=== PATIENT | male | born 1955 | race Caucasian/White ===

== ENCOUNTER 2016-09-12 15:58 | Emergency (ER) | payer OTHER ==
[~2016-09-12] VITALS: Ht 160 cm; Wt 70.9 kg
[~2016-09-12 15:58] MED LIST: LISI30TA4 PO; PROZ40CA PO; TAMS5CAP PO; WELLTAB39 PO
[2016-09-12 15:59] VITALS: BP 121/79; PULSE 89; RESP 14; TEMP 98.1; O2SAT 96
[2016-09-12 16:51] LABS: BACTERIA, URINE FEW /hpf; BLOOD, URINE LARGE (NEG); COMMENT (UR) CULTURE INDICATED; CULTURE IF INDICATED CULTURE INDICATED; GLUCOSE,URINE NEG (NEG); KETONE, URINE NEG (NEG); NITRITE,URINE POS (NEG); PH, URINE 6.5 (5.0-8.5); URINE COLOR YELLOW (YELLW/STRAW)
--- NOTE | 2016-09-12 18:59 | PD ---
HPI Chief Complaint: Complaint Time Seen by Provider: 18:50 Travel History International Travel<30 days: No Contact w/Intl Traveler<30days: No Traveled to known affect area: No History of Present Illness HPI Patient is a 61-year-old male who presents emergency department for evaluation of dysuria, frequency, back pain. Patient also complains of a cough and "lung pain". Patient reports a 50 pound weight loss over the last 8 months. Patient states that he had urinary stent placement with Dr. Hernandez, urologist several months ago and they have not been removed. Patient has not followed up with Dr. Hernandez, due to being incarcerated recently for 40 days. Patient states he' s been homeless for the last 2 weeks. He denies any appetite changes, he states he eats 3 meals a day at the [employer] PFSH Past Medical History Hx Anticoagulant Therapy: No Arthritis: Yes (DJD) Asthma: Yes Anxiety: No Depression: Yes Heart Rhythm Problems: No Cancer: No Cardiac Catheterization: No Cardiovascular Problems: Yes (LA/HTN) High Cholesterol: No Chemotherapy: No Chest Pain: No Congestive Heart Failure: No Cerebrovascular Accident: No Diabetes: No Diminished Hearing: No Endocrine: No Gastrointestinal Disorders: No Genitourinary: Yes (STONES) Headaches: Yes Hepatitis: Yes Hiatal Hernia: No Hypertension: Yes Immune Disorder: No Inguinal Hernia: Yes (REPAIRED RIGHT GROIN) Implanted Vascular Access Dvce: No Kidney Stones: Yes Musculoskeletal: Yes (CHRONIC BACK AND NECK PAIN) Neurologic: No Psychiatric: Yes Reproductive: No Respiratory: Yes (ASTHMA) Immunizations Current: Yes Migraines: Yes Renal Failure: No Thyroid Disease: No Past Surgical History Abdominal Surgery: Yes (HERNIA RIGHT GROIN REPAIRED, REPAIRED CHILD) AICD: No Body Medical Devices: LEFT ANKLE PINS Cardiac Surgery: No Coronary Artery Bypass Graft: No Ear Surgery: No Endocrine Surgery: No Eye Surgery: Yes (cyst on eye) Genitourinary Surgery: Yes (lithotripsy) Gynecologic Surgery: No Hysterectomy: No Joint Replacement: No Neurologic Surgery: No Oral Surgery: No Pacemaker: No Thoracic Surgery: No Other Surgery: Yes (THUMB SURGERY FROM LACERATION) Social History Alcohol Use: No (QUIT 2010) Tobacco Use: No (QUIT 2009) 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) Allergies-Medications (Allergen,Severity, Reaction): Coded Allergies: [place]oy (Verified Allergy, Severe, THROAT SWELLS, 09/12/16) Cultivated Oat Pollen (Verified Allergy, Severe, ASTHMA, 09/12/16) Dust (Verified Allergy, Severe, ASTHMA, 09/12/16) Nut Tree (Verified Allergy, Severe, THROAT SWELLS, 09/12/16) Reported Meds & Prescriptions Reported Meds & Active Scripts Active Pyridium (Phenazopyridine HCl) 200 Mg Tab 200 Mg PO Q8H PRN Bactrim DS (Sulfamethoxazole-Trimethoprim) 800-160 Mg Tab 1 Tab PO BID Lisinopril 30 Mg Tab 30 Mg PO DAILY Flomax (Tamsulosin HCl) 0.4 Mg Cap 0.4 Mg PO HS Reported Wellbutrin Xl 24 HR (Bupropion HCl) 300 Mg Tab 300 Mg PO DAILY Prozac (Fluoxetine HCl) 40 Mg Cap 40 Cap PO DAILY Review of Systems Except as stated in HPI: all other systems reviewed are Neg General / Constitutional: Positive: Weight Loss (50 pounds over the last 8 months) HENT: No: Headaches Cardiovascular: No: Chest Pain or Discomfort Respiratory: Positive: Cough, Pleuritic Pain Gastrointestinal: No: Nausea, Vomiting, Diarrhea, Abdominal Pain Genitourinary: Positive: Dysuria, Hematuria Musculoskeletal: Positive: Myalgias Physical Exam Narrative GENERAL: Well-developed, well-nourished, alert male. Resting comfortably in no acute distress. SKIN: Warm and dry. HEAD: Atraumatic. Normocephalic. EYES: Pupils equal and round. No scleral icterus. No injection or drainage. ENT: No nasal bleeding or discharge. Mucous membranes pink and moist. NECK: Trachea midline. No JVD. CARDIOVASCULAR: Regular rate and rhythm. No murmur appreciated. RESPIRATORY: No accessory muscle use. Clear to auscultation. Breath sounds equal bilaterally. GASTROINTESTINAL: Abdomen soft, non-tender, nondistended. Hepatic and splenic margins not palpable. MUSCULOSKELETAL: No obvious deformities. No clubbing. No cyanosis. No edema. Positive CVAT bilaterally. NEUROLOGICAL: Awake and alert. No obvious cranial nerve deficits. Motor grossly within normal limits. Normal speech. PSYCHIATRIC: Appropriate mood and affect; insight and judgment normal. Data Data Last Documented VS Vital Signs Date Time Temp Pulse Resp B/P Pulse Ox O2 Delivery O2 Flow Rate FiO2 09/12/16 23:04 82 15 128/80 96 09/12/16 15:59 98.1 Room Air Orders Urinalysis - C+S If Indicated (09/12/16 16:07) Urine Culture (09/12/16 16:12) Chest, Pa & Lat (09/12/16 ) Ct Abd/Pel W/O Iv Contrast (09/12/16 18:49) Sodium Chloride 0.9% Flush (Ns Flush) (09/12/16 19:00) Complete Blood Count With Diff (09/12/16 19:46) Basic Metabolic Panel (Bmp) (09/12/16 19:46) Ibuprofen (Motrin) (09/12/16 22:45) Phenazopyridine (Pyridium) (09/12/16 22:45) Sulfamet-Trimeth Ds 800-160 Mg (Bactrim (09/12/16 22:45) Mandatory Outpatient Referral (09/12/16 22:35) Labs Laboratory Tests Test 09/12/16 09/12/16 09/12/16 16:12 21:15 22:17 Urine Color YELLOW Urine Turbidity CLOUDY Urine pH 6.5 Urine Specific [place] 1.016 Urine Protein 30 mg/dL Urine Glucose (UA) NEG mg/dL Urine Ketones NEG mg/dL Urine Occult Blood LARGE Urine Nitrite POS Urine Bilirubin NEG Urine Urobilinogen 2.0 MG/DL Urine Leukocyte Esterase LARGE Urine RBC /hpf Urine WBC /hpf Urine Bacteria FEW /hpf Microscopic Urinalysis Comment CULTURE INDICATED Sodium Level 140 MEQ/L Potassium Level 3.7 MEQ/L Chloride Level 107 MEQ/L Carbon Dioxide Level 27.6 MEQ/L Anion Gap 5 MEQ/L Blood Urea Nitrogen 10 MG/DL Creatinine 1.37 MG/DL Estimat Glomerular Filtration 53 ML/MIN Rate Random Glucose 94 MG/DL Calcium Level 9.7 MG/DL White Blood Count 5.6 TH/MM3 Red Blood Count 4.79 MIL/MM3 Hemoglobin 13.4 GM/DL Hematocrit 40.6 % Mean Corpuscular Volume 84.7 FL Mean Corpuscular Hemoglobin 28.0 PG Mean Corpuscular Hemoglobin 33.0 % Concent Red Cell Distribution Width 14.7 % Platelet Count 156 TH/MM3 Mean Platelet Volume 7.9 FL Neutrophils (%) (Auto) 66.8 % Lymphocytes (%) (Auto) 15.7 % Monocytes (%) (Auto) 10.1 % Eosinophils (%) (Auto) 6.6 % Basophils (%) (Auto) 0.8 % Neutrophils # (Auto) 3.8 TH/MM3 Lymphocytes # (Auto) 0.9 TH/MM3 Monocytes # (Auto) 0.6 TH/MM3 Eosinophils # (Auto) 0.4 TH/MM3 Basophils # (Auto) 0.0 TH/MM3 CBC Comment DIFF FINAL Differential Comment MDM Medical Decision Making Medical Screen Exam Complete: Yes Emergency Medical Condition: Yes Medical Record Reviewed: Yes Interpretation(s) Vital Signs Date Time Temp Pulse Resp B/P Pulse Ox O2 Delivery O2 Flow Rate FiO2 09/12/16 15:59 98.1 89 14 121/79 96 Room Air Differential Diagnosis Bronchitis versus asthma exacerbation versus pyelonephritis versus urinary tract infection versus malignancy versus other Narrative Course Patient is a 61-year-old male presenting to the emergency department for evaluation of back pain, cough, urinary complaints. Patient's vital signs are stable, he is afebrile. Patient has moderate CVAT bilaterally, urinalysis shows nitrite positive urinary tract infection. Patient has reported a 50 pound weight loss over the last 8 months, chest x-ray ordered and pending. CT of the abdomen ordered and pending to rule out obstructing calculi. Chest x-ray shows no acute disease. Care of patient will be transferred to provider in the medical pod when bed is available. Scripts Phenazopyridine (Pyridium)200 Mg [id number] Mg PO Q8H PRN (DYSURIA) #3 TAB Ref 0 Prov:Tayler Perez MD 09/12/16 Sulfamethoxazole-Trimethoprim (Bactrim DS)800-160 Mg Tab1 Tab PO BID #6 TAB Ref 0 Prov:Tayler Perez MD 09/12/16 Afshan Ziegler Sep 12, 2016 18:59
[2016-09-12] MEDS ORDERED: SODIUM CHLORIDE 0.9% FLUSH 5 ML FLUSH IVF PRN (19:00)
--- NOTE | 2016-09-12 19:19 | RADRPT ---
EXAM DATE/TIME: 09/12/2016 19:10 [facility] COMPARISON: No previous studies available for comparison. INDICATIONS : Cough. MEDICAL HISTORY : Cardiomegally. SURGICAL HISTORY : Renal stents. ENCOUNTER: Initial ACUITY: 2 weeks PAIN SCORE: 0/10 LOCATION: Bilateral chest FINDINGS: PA and lateral views of the chest demonstrate the lungs to be symmetrically aerated without evidence of mass, infiltrate or effusion. The cardiomediastinal contours are unremarkable. Degenerative mahmood e is seen in the thoracic spine. There appears to be a stent in the posterior upper abdomen.. CONCLUSION: No acute disease. Dino Fong MD on September 12, 2016 at 19:17 Board Certified Radiologist. This report was verified electronically.
--- NOTE | 2016-09-12 19:43 | RADRPT ---
EXAM DATE/TIME: 09/12/2016 19:07 [facility] COMPARISON: CT ABDOMEN & PELVIS W/O CONTRAST, December 17, 2015, 11:37. CT ABDOMEN & PELVIS W /O CONTRAST, March 26, 2016, 12:11. INDICATIONS : Bilateral flank pain with burning urination past 5 days. ORAL CONTRAST: No oral contrast ingested. RADIATION DOSE: 7.04 CTDIvol (mGy) MEDICAL HISTORY : Cardiovascular disease. Hypertension. Hernia, inguinal. Renal stones SURGICAL HISTORY : Renal stents ENCOUNTER: Initial ACUITY: 4 - 6 days PAIN SCALE: 5/10 LOCATION: Bilateral flank TECHNIQUE: Volumetric scanning of the abdomen and pelvis was performed. Using automated exposure control and adjustment of the mA and/or kV according to patient size, radiation dose was kept as low as reasonably achievable to obtain optimal diagnostic quality images. FINDINGS: There are ureteral stents seen bilaterally. There are several small nonobstructing rig ht renal stones seen measuring up to 6 mm. There is a possible tiny 2 mm calcification seen at the i nferior left collecting system. No hydronephrosis is seen. There is a 2.8 x 1.6 x 1.9 cm low densit y mass seen off the posterior inferior aspect of the left kidney. This was not present previously. The liver appears normal. There is a 1.6 cm gallstone seen in the gallbladder. There is a calcified granuloma seen in the spleen. The pancreas and adrenals glands are normal. There are mildly promine nt lymph nodes seen in the celiac region. These were present previously. These measure up to 1.6 cm. There are retroperitoneal prominent lymph nodes in the pericaval and periaortic regions. These wer e present previously and are unchanged. The bowel is grossly normal. The pelvic structures appear g rossly intact. There is degenerative change in the spine. CONCLUSION: 1. Bilateral ureteral stents in place. There are small calcifications seen in the kidneys bilaterall y being more numerous on the right. 2. 2.8 cm low density mass seen in the posterior inferior left kidney. This was not present previous ly. It could represent a cyst. A low density solid mass cannot be excluded. It is nonspecific on this noncontrast CT examination. 3. Gallstone. 4. Persistent adenopathy seen in the celiac and retroperitoneal region. The adenopathy appears uncha nged. Dino Fong MD on September 12, 2016 at 19:25 Board Certified Radiologist. This report was verified electronically.
--- NOTE | 2016-09-12 21:45 | PD ---
Physical Exam Date Seen by Provider: Sep 12, 2016 Time Seen by Provider: 21:45 Narrative 61-year-old male with PMH of asthma, hypertension, kidney stones presents to the ED for evaluation of 3 day history of increased urinary urgency, dysuria, hematuria, back pain. Also complains of chronic, nonproductive cough, worsened over the last 3 days. He denies fever, chills, nausea, vomiting, chest pain, shortness breath, palpitations, penile discharge. States that he had ureteral stents placed but was unable to have them removed secondary to incarceration. Patient states he is currently homeless. GENERAL: Well-nourished, well-developed white male in no acute distress. SKIN: Warm and dry. HEAD: Normocephalic. EYES: No scleral icterus. No injection or drainage. NECK: Supple, trachea midline. No JVD or lymphadenopathy. CARDIOVASCULAR: Regular rate and rhythm without murmurs, gallops, or rubs. RESPIRATORY: Breath sounds clear and equal bilaterally. No accessory muscle use. GASTROINTESTINAL: Abdomen soft, non-tender, nondistended. Active bowel sounds. Mild pubic tenderness. MUSCULOSKELETAL: No cyanosis, or edema. BACK: Nontender without obvious deformity. Positive bilateral CVA tenderness. Data Data Last Documented VS Vital Signs Date Time Temp Pulse Resp B/P Pulse Ox O2 Delivery O2 Flow Rate FiO2 09/12/16 23:04 82 15 128/80 96 09/12/16 15:59 98.1 Room Air Orders Urinalysis - C+S If Indicated (09/12/16 16:07) Urine Culture (09/12/16 16:12) Chest, Pa & Lat (09/12/16 ) Ct Abd/Pel W/O Iv Contrast (09/12/16 18:49) Sodium Chloride 0.9% Flush (Ns Flush) (09/12/16 19:00) Complete Blood Count With Diff (09/12/16 19:46) Basic Metabolic Panel (Bmp) (09/12/16 19:46) Ibuprofen (Motrin) (09/12/16 22:45) Phenazopyridine (Pyridium) (09/12/16 22:45) Sulfamet-Trimeth Ds 800-160 Mg (Bactrim (09/12/16 22:45) Mandatory Outpatient Referral (09/12/16 22:35) Labs Laboratory Tests Test 09/12/16 09/12/16 09/12/16 16:12 21:15 22:17 Urine Color YELLOW Urine Turbidity CLOUDY Urine pH 6.5 Urine Specific [place] 1.016 Urine Protein 30 mg/dL Urine Glucose (UA) NEG mg/dL Urine Ketones NEG mg/dL Urine Occult Blood LARGE Urine Nitrite POS Urine Bilirubin NEG Urine Urobilinogen 2.0 MG/DL Urine Leukocyte Esterase LARGE Urine RBC /hpf Urine WBC /hpf Urine Bacteria FEW /hpf Microscopic Urinalysis Comment CULTURE INDICATED Sodium Level 140 MEQ/L Potassium Level 3.7 MEQ/L Chloride Level 107 MEQ/L Carbon Dioxide Level 27.6 MEQ/L Anion Gap 5 MEQ/L Blood Urea Nitrogen 10 MG/DL Creatinine 1.37 MG/DL Estimat Glomerular Filtration 53 ML/MIN Rate Random Glucose 94 MG/DL Calcium Level 9.7 MG/DL White Blood Count 5.6 TH/MM3 Red Blood Count 4.79 MIL/MM3 Hemoglobin 13.4 GM/DL Hematocrit 40.6 % Mean Corpuscular Volume 84.7 FL Mean Corpuscular Hemoglobin 28.0 PG Mean Corpuscular Hemoglobin 33.0 % Concent Red Cell Distribution Width 14.7 % Platelet Count 156 TH/MM3 Mean Platelet Volume 7.9 FL Neutrophils (%) (Auto) 66.8 % Lymphocytes (%) (Auto) 15.7 % Monocytes (%) (Auto) 10.1 % Eosinophils (%) (Auto) 6.6 % Basophils (%) (Auto) 0.8 % Neutrophils # (Auto) 3.8 TH/MM3 Lymphocytes # (Auto) 0.9 TH/MM3 Monocytes # (Auto) 0.6 TH/MM3 Eosinophils # (Auto) 0.4 TH/MM3 Basophils # (Auto) 0.0 TH/MM3 CBC Comment DIFF FINAL Differential Comment MDM Supervised Visit with YONI: No Differential Diagnosis Cystitis versus pyelonephritis versus hemorrhagic cystitis versus MORGAN versus anemia versus other Narrative Course 61-year-old male with PMH of asthma, HTN, kidney stones presents to ED for evaluation of 3 day history of increased urinary urgency, dysuria, hematuria, back pain. Also complains chronic, nonproductive cough, worse the last 3 days. Denies fever, chills, and in/V, chest pain, SOB, palpitations. States that he has ureteral stents in place, was unable to have them removed secondary to incarceration. Vitals reviewed. Physical exam reveals a nontoxic-appearing white male in no acute distress. Chest CTAB, abdomen soft, nontender, nondistended. Active bowel sounds. Mild suprapubic tenderness. Positive bilateral CVA tenderness. CBC: No anemia or leukocytosis. CMP: Creatinine 1.37, patient's baseline. UA: Cloudy, large occult blood, nitrate positive, large leukocyte esterase, innumerable wbc's, innumerable rbc's. Culture pending. Urine culture 03/05/16 grew staph or resistant only to Cipro. CXR: No acute disease. CT abdomen and pelvis: Stents in place. Possible left kidney mass. Retroperitoneal adenopathy, unchanged. Gallstone. I discussed the results of the workup with the patient. The patient is aware of the adenopathy. I provided a copy of the CT results regarding possible left kidney mass. Patient was prescribed Bactrim and Pyridium, first doses administered in the ED. A mandatory outpatient consult was placed to Dr. Hernandez for evaluation of stents. Patient is instructed to take all the medication as prescribed, even if symptoms resolve, follow up with Dr. Hernandez as discussed. He indicated understanding of the instructions and is amenable to the plan of care. He is stable and discharged home. Diagnosis Primary Impression: Pyelonephritis Referrals: Ken Hernandez DO Patient Instructions: General Instructions, Urinary Tract Infection in Men (ED) Additional Instruction: Rest, hydrate. Take all medication as prescribed, even if your symptoms resolved. A mandatory outpatient consult has been placed with Dr. Hernandez for urologic follow-up. You may call the hospital in 2-3 days for further instructions. If you have a valid contact number, the hospital call you with further instructions. Return to the ED for any urgent or emergent medical condition. Scripts Phenazopyridine (Pyridium)200 Mg [id number] Mg PO Q8H PRN (DYSURIA) #3 TAB Ref 0 Prov:Tayler Perez MD 09/12/16 Sulfamethoxazole-Trimethoprim (Bactrim DS)800-160 Mg Tab1 Tab PO BID #6 TAB Ref 0 Prov:Tayler Perez MD 09/12/16 Disposition: 01 DISCHARGE HOME Condition: Stable Citlalli Douglas Sep 12, 2016 21:45
[2016-09-12 22:15] LABS: BICARBONATE 27.6 MEQ/L (21.0-32.0); POTASSIUM 3.7 MEQ/L (3.5-5.1)
[2016-09-12] MEDS ORDERED: BACT800T5 PO (22:39)
[2016-09-12] MEDS ORDERED: PYRI200T4 PO (22:39)
[2016-09-12 22:45] LABS: AUTOMATED NEUTROPHIL # 3.8 TH/MM3 (1.8-7.7); BASOPHIL % 0.8 % (0.0-2.0); EOSINOPHIL # 0.4 TH/MM3 (0-0.4); EOSINOPHIL % 6.6 % (0.0-4.0); HEMATOCRIT 40.6 % (39.0-51.0); HEMO FLAGS DIFF FINAL; LYMPH % 15.7 % (9.0-44.0); LYMPHOCYTE # 0.9 TH/MM3 (1.0-4.8); MEAN CELL VOLUME 84.7 FL (80.0-100.0); MONO % 10.1 % (0.0-8.0); NEUT % 66.8 % (16.0-70.0); PLATELET COUNT 156 TH/MM3 (150-450); RED BLOOD COUNT 4.79 MIL/MM3 (4.50-5.90); RED CELL DISTRIBUTION WIDTH 14.7 % (11.6-17.2); WHITE BLOOD COUNT 5.6 TH/MM3 (4.0-11.0)
[2016-09-12] MEDS ORDERED: PHENAZOPYRIDINE HCL 200 MG TAB PO ONE (22:45)
[2016-09-12] MEDS ORDERED: SULFAMETHOXAZOLE-TRIMETHOPRIM DS 800-160 MG TAB PO ONE (22:45)
[2016-09-12] MEDS ORDERED: IBUPROFEN 600 MG TAB PO ONE (22:45)
[2016-09-12 23:04] VITALS: BP 128/80
[2016-10-03] MEDS ORDERED: BACT800T5 PO (15:46)
[2016-10-03] MEDS ORDERED: PYRI200T4 PO (15:49)
[2016-10-05] MEDS ORDERED: SERO200T PO (13:02)
[2016-10-05] MEDS ORDERED: VENL75XR PO (13:02)
[2016-10-05] MEDS ORDERED: BACT800T5 PO (13:56)
== END 2016-09-12 23:08 | disposition home or self-care (01) ==
LOC: NEPC 15:58
DX: N12 Tubulo-interstitial nephritis, not specified as acute or chronic (principal); N39.0 Urinary tract infection, site not specified; J45.909 Unspecified asthma, uncomplicated; I10 Essential (primary) hypertension; I25.2 Old myocardial infarction; R31.9 Hematuria, unspecified; B95.61 Methicillin susceptible Staphylococcus aureus infection as the cause of diseases classified elsewhere
CPT/HCPCS: 71020; 74176; 80048; 81001; 85025; 86403; 87077; 87086; 87186

== ENCOUNTER 2016-10-11 09:50 | Observation (INO) | payer OTHER ==
[~2016-10-11] VITALS: Ht 160 cm; Wt 75.2 kg
[~2016-10-11 09:50] MED LIST changes: +BACT800T5 PO; -PROZ40CA PO; +SERO200T PO; +VENL75XR PO; -WELLTAB39 PO
[2016-10-11] MEDS: SODIUM CHLORID 0.9% 500 ML IV SCH (10:30)
[2016-10-11] MEDS ORDERED: METOPROLOL TARTRATE 25 MG TAB PO PRN (10:30)
[2016-10-11] MEDS ORDERED: INSULIN HUMAN REGULAR 1,000 UNITS/10 ML VIAL SQ PRN (10:30)
[2016-10-11 10:52] VITALS: BP 126/81; PULSE 82; RESP 20; TEMP 97.9; O2SAT 97
[2016-10-11] MEDS: LACTATED RINGER'S 1000 ML IV SCH ×2 (11:15→21:23)
[2016-10-11 11:44] LABS: BASOPHIL % 0.8 % (0.0-2.0); EOSINOPHIL # 0.6 TH/MM3 (0-0.4); EOSINOPHIL % 12.8 % (0.0-4.0); HEMATOCRIT 39.6 % (39.0-51.0); LYMPH % 14.6 % (9.0-44.0); LYMPHOCYTE # 0.7 TH/MM3 (1.0-4.8); MEAN CELL VOLUME 87.8 FL (80.0-100.0); MEAN CORPUSCULAR HEMOGLOBIN 30.2 PG (27.0-34.0); MEAN CORPUSCULAR HGB CONC 34.3 % (32.0-36.0); MONO % 9.4 % (0.0-8.0); NEUT % 62.4 % (16.0-70.0); PLATELET COUNT 160 TH/MM3 (150-450); RED BLOOD COUNT 4.51 MIL/MM3 (4.50-5.90); RED CELL DISTRIBUTION WIDTH 16.1 % (11.6-17.2); WHITE BLOOD COUNT 4.8 TH/MM3 (4.0-11.0)
[2016-10-11 11:50] LABS: HEMO FLAGS AUTO DIFF
[2016-10-11] MEDS ORDERED: LACTATED RINGER'S 1000 ML INJ 1,000 ML IV ONE (12:00)
[2016-10-11] MEDS ORDERED: NEOSTIGMINE 3 MG/3 ML SYR IV ONE (12:00)
[2016-10-11] MEDS ORDERED: ePHEDrine/NS 25 MG/5 ML SYR IV ONE (12:00)
[2016-10-11] MEDS ORDERED: PROPOFOL 200 MG/20 ML AMP IV ONE (12:00)
[2016-10-11] MEDS ORDERED: PHENYLEPH/NS 1000 MCG/10 ML SYR IV ONE (12:00)
[2016-10-11] MEDS ORDERED: ONDANSETRON HCL 4 MG/2 ML VIAL IV PUSH ONE (12:00)
[2016-10-11] MEDS: AMPICILLIN 1 GM/NS 100 ML IV SCH ×4 (12:12→21:24)
[2016-10-11] MEDS: GENTAMICIN INJ 240 MG in SODIUM CHLORIDE 0.9% INJ 100 ML IV SCH ×2 (12:12→21:24)
[2016-10-11 12:31] LABS: PLATELET ESTIMATE SMEAR NORMAL (NORMAL); PLATELET MORPHOLOGY NORMAL (NORMAL); SCAN/DIFF AUTO DIFF CONFIRMED
[2016-10-11] MEDS ORDERED: FAMOTIDINE 20 MG/2 ML VIAL ONE (13:06)
[2016-10-11] MEDS ORDERED: MIDAZOLAM HCL 2 MG/2 ML VIAL ONE (13:06)
[2016-10-11] MEDS ORDERED: fentaNYL CITRATE 250 MCG/5 ML AMP ONE (13:06)
--- NOTE | 2016-10-11 15:21 | PD.OP ---
Operative Report Date of Surgery: Oct 11, 2016 Preoperative Diagnosis: right renal stones; retained ureteral stents Postoperative Diagnosis: same Procedure: Urethral dilatation, cystoscopy, left double-J stent removal, right ureteroscopy , laser lithotripsy with stone extraction, right double-J stent change Anesthesia: OLEG Surgeon: Ken Hernandez Gun Stock Checker(s): none Operation and Findings: Driss Esparza is a 61-year-old male presents with a history of bilateral renal calculi. He's undergone ESWL therapy in the past and recent CT scan demonstrate residual small right renal calculi with retained stents in place bilaterally. Decision was made to take the patient to the operating room to undergo cystoscopy left double-J stent removal with right ureteroscopy and laser lithotripsy with stone extraction and right double-J stent exchange. Benefits were discussed preoperatively and he was willing to proceed. Patient is brought to the operating room and identified by myself as Driss Esparza. He was prepped and draped in usual sterile fashion, received preprocedure antibiotics, general endotracheal tube anesthesia was administered and preprocedure antibiotics were administered. Urethral dilatation was performed starting with a 20 Nam[place]ian sound and going up to a 26 sound in order to be able to place the cystoscope through the urethra. 22 [place] scope was inserted in the bladder ceron cystoscopy did not reveal any abnormalities. The left ureter stent was identified and using the alligator grasper was removed without difficulty. The right ureteral stent was also identified and brought to the urethral meatus and a 0.35 sensor wire was passed up the right side with a good curl in the kidney and the stent was removed over the wire. A ureteral access sheath was then passed over the wire left in position. The wire was removed. A [employer] flexible ureteroscope was then passed through the ureteral access sheath and up into the lower pole right kidney. Stone fragments were visualized and using a 200 laser fiber at a setting of 8/800 the lower profile is within fragmented. A 3.0 nitinol basket was then used to retrieve the stone fragments. Once the right kidney was cleared; leaving only small fragments in place, a 0.35 sensor wire was then passed through the ureteral access sheath and ureteral access sheath was then removed. Cystoscope was back loaded over the wire and then at 22 cm 6 [place]ibian right double-J stent was placed. He was in good position at the end of the case and a 16 [place] Harrington was left indwelling. He was awoken and transferred to room stable condition. He will be admitted for observation and then discharged and follow-up in 2 weeks in the office undergo cystoscopy with stent removal. Ken Hernandez DO Oct 11, 2016 15:21
[2016-10-11] MEDS ORDERED: PILL SPLITTER OTHER PRN (15:45)
[2016-10-11] MEDS: BELLADONNA ALKALOIDS/OPIUM 60 MG SUPP RECTAL PRN ×2 (15:53→22:31)
[2016-10-11] MEDS: TAMSULOSIN HCL 0.4 MG CAP PO SCH (16:00)
[2016-10-11] MEDS: SODIUM CHLOR 0.45% 1000 ML INJ 1,000 ML IV SCH (16:00)
[2016-10-11] MEDS ORDERED: ACETAMINOPHEN 650 MG/20.3 ML UDC PO PRN (16:00)
[2016-10-11] MEDS: KETOROLAC TROMETHAMINE 30 MG/ML (IVP) VIAL IV PUSH PRN ×2 (16:10→22:31)
[2016-10-11 16:29] LABS: BICARBONATE 21.9 MEQ/L (21.0-32.0); POTASSIUM 4.4 MEQ/L (3.5-5.1)
[2016-10-11 19:07] VITALS: O2SAT 96
[2016-10-11 20:00] VITALS: BP 147/83; PULSE 100; RESP 20; TEMP 98.6; O2SAT 94
[2016-10-11] MEDS ORDERED: AMPICILLIN 250 MG VIAL IM SCH (20:00)
[2016-10-11] MEDS ORDERED: QUEtiapine FUMARATE 200 MG TAB PO SCH (21:00)
[2016-10-12] VITALS: BP 141/80; PULSE 90; RESP 20; TEMP 97.4; O2SAT 96
[2016-10-12] MEDS: AMPICILLIN 1 GM/NS 100 ML IV SCH ×4 (00:06→06:17)
[2016-10-12] MEDS: SODIUM CHLOR 0.45% 1000 ML INJ 1,000 ML IV SCH ×2 (00:06→08:53)
[2016-10-12] MEDS: SODIUM CHLORID 0.9% 500 ML IV SCH (00:48)
[2016-10-12 04:00] VITALS: BP 137/84; PULSE 88; RESP 20; TEMP 98.2; O2SAT 95
[2016-10-12] MEDS: KETOROLAC TROMETHAMINE 30 MG/ML (IVP) VIAL IV PUSH PRN (06:19)
[2016-10-12 08:00] VITALS: BP 153/86; PULSE 63; RESP 18; TEMP 96.4; O2SAT 97
[2016-10-12] MEDS: TAMSULOSIN HCL 0.4 MG CAP PO SCH (08:51)
[2016-10-12] MEDS ORDERED: LISINOPRIL 20 MG TAB PO SCH (09:00)
[2016-10-12] MEDS ORDERED: VENLAFAXINE HCL XR 75 MG CAP PO SCH (09:00)
--- NOTE | 2016-10-12 09:09 | HHI.PR ---
Subjective Remarks Pt feels well. Harrington out and voiding. Objective Vital Signs Vital Signs Date Time Temp Pulse Resp B/P Pulse Ox O2 Delivery O2 Flow Rate FiO2 10/12/16 04:00 98.2 88 20 137/84 95 10/12/16 00:00 97.4 90 20 141/80 96 10/11/16 23:31 18 10/11/16 20:00 98.6 100 20 147/83 94 10/11/16 19:07 96 21 10/11/16 16:30 98.1 65 13 140/75 98 Room Air 10/11/16 16:15 70 14 139/82 97 Room Air 10/11/16 16:00 75 13 131/77 95 Room Air 10/11/16 15:45 80 12 140/82 97 Room Air 10/11/16 15:30 90 19 129/74 97 Room Air 10/11/16 15:19 98.4 115 16 146/89 98 Room Air 10/11/16 10:52 97.9 82 20 126/81 97 I/O 10/11/16 10/11/16 10/11/16 10/12/16 10/12/16 10/12/16 07:00 15:00 23:00 07:00 15:00 23:00 Intake Total 2785 ml 720 ml Output Total 960 ml 1600 ml Balance 1825 ml -880 ml Intake Oral 290 ml 720 ml IV Total 795 ml Other 1700 ml Output Urine Total 950 ml 1600 ml Estimated Blood Loss 10 ml # Bowel Movements 0 0 Result Diagram: 10/11/16 1110 10/11/16 1602 Objective Remarks Abd:soft,nt,nd Assessment and Plan Assessment and Plan Stable s/p Right URS with laser litho and stone extraction D/C home Ken Hernandez DO Oct 12, 2016 09:09
--- NOTE | 2016-10-17 12:17 | MD ---
cc: ISABEL HERNANDEZ ADMISSION DATE: 10/11/2016 DISCHARGE DATE: 10/12/2016 BRIEF HISTORY AND HOSPITAL COURSE Mr. Sellers is a 61-year-old male who had bilateral ureteral and renal calculi. He underwent cystoscopy with right ureteroscopy, laser lithotripsy and stone extraction yesterday with a right double-J stent change. His left stent was removed. He had an uneventful hospital course and was discharged on postoperative day #1. His Harrington was removed and he voided without difficulty and was tolerating his regular diet. He will follow-up in the office in 2 weeks and at that time undergo cystoscopy with stent pull. Isabel Hernandez SWT/BT /9:13 AM /12:15 PM
== END 2016-10-12 11:11 | disposition home or self-care (01) ==
LOC: HSDC 09:50 → HSDI 15:15 → N07B 16:53
PROVIDERS: ADMIT Urology; ATTEND Urology
DX: N20.0 Calculus of kidney (principal); Z46.6 Encounter for fitting and adjustment of urinary device
CPT/HCPCS: 00918; 52356; 80048; 82370; 85025; 88300; C1769; C2617; G0378; J0290; J1580; J1885; J2250; J2370; J2405; J2710; J3010; J7120

== ENCOUNTER 2017-01-06 09:23 | Emergency (ER) | payer OTHER ==
[~2017-01-06] VITALS: Ht 160 cm; Wt 80.0 kg
[2017-01-06 09:25] VITALS: BP 116/73; PULSE 105; RESP 20; TEMP 97.6; O2SAT 98
--- NOTE | 2017-01-06 10:03 | PD ---
HPI Chief Complaint: Flank/Kidney Pain Time Seen by Provider: 09:56 Travel History International Travel<30 days: No Contact w/Intl Traveler<30days: No Traveled to known affect area: No History of Present Illness HPI This patient is worried about having urinary infection. 2 days ago his urine developed a followed her and he came discolored. He reports some dysuria. He denies fever or flank pain. Patient has a urinary stent. He was supposed to have it removed in October but he never went to his appointment with his urologist. Symptoms severity is moderate. No alleviating factors. He complains of dizziness and lightheadedness, worse when standing. PFSH Past Medical History Hx Anticoagulant Therapy: No Arthritis: Yes (DJD) Asthma: Yes Bipolar Disorder: Yes Anxiety: No Depression: Yes Heart Rhythm Problems: No Cancer: No Cardiac Catheterization: No Cardiovascular Problems: Yes (ENLARGED HEART) High Cholesterol: No Chemotherapy: No Chest Pain: No Congestive Heart Failure: No Cerebrovascular Accident: No Diabetes: No Diminished Hearing: No Endocrine: No Gastrointestinal Disorders: Yes (GALLSTONE ) Genitourinary: Yes (STONES) Headaches: Yes (related to htn) Hepatitis: Yes (HEP C) Hiatal Hernia: No Hypertension: Yes Immune Disorder: No Inguinal Hernia: Yes (REPAIRED RIGHT GROIN) Implanted Vascular Access Dvce: No Kidney Stones: Yes Musculoskeletal: Yes (CHRONIC BACK AND NECK PAIN) Neurologic: No Psychiatric: Yes Reproductive: No Respiratory: Yes (ASTHMA) Immunizations Current: Yes Migraines: Yes Renal Failure: No Thyroid Disease: No Tetanus Vaccination: < 5 Years Influenza Vaccination: No Past Surgical History Abdominal Surgery: Yes (HERNIA RIGHT GROIN REPAIRED, REPAIRED CHILD) AICD: No Body Medical Devices: LEFT ANKLE PINS Cardiac Surgery: No Coronary Artery Bypass Graft: No Ear Surgery: No Endocrine Surgery: No Eye Surgery: Yes (cyst on eye) Genitourinary Surgery: Yes (lithotripsy X2, R KIDNEY STENT) Gynecologic Surgery: No Hysterectomy: No Joint Replacement: No Neurologic Surgery: No Oral Surgery: No Pacemaker: No Thoracic Surgery: No Other Surgery: Yes (THUMB SURGERY FROM LACERATION) Social History Alcohol Use: No (QUIT 2011) Tobacco Use: No 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 - QUIT 2011) Allergies-Medications (Allergen,Severity, Reaction): Coded Allergies: Godoy (Verified Allergy, Severe, THROAT SWELLS, 01/06/17) Cultivated Oat Pollen (Verified Allergy, Severe, ASTHMA, 01/06/17) Dust (Verified Allergy, Severe, ASTHMA, 01/06/17) Nut Tree (Verified Allergy, Severe, THROAT SWELLS, 01/06/17) Reported Meds & Prescriptions Reported Meds & Active Scripts Active Cipro (Ciprofloxacin HCl) 500 Mg Tab 500 Mg PO BID Lisinopril 30 Mg Tab 30 Mg PO DAILY Flomax (Tamsulosin HCl) 0.4 Mg Cap 0.4 Mg PO HS Reported Seroquel (Quetiapine Fumarate) 200 Mg Tab 200 Mg PO HS Effexor XR 24 HR (Venlafaxine HCl) 75 Mg Cap 225 Mg PO DAILY Review of Systems General / Constitutional: No: Fever Eyes: No: Visual changes HENT: Positive: Lightheadedness, No: Headaches Cardiovascular: No: Chest Pain or Discomfort Respiratory: No: Shortness of Breath Gastrointestinal: No: Abdominal Pain Genitourinary: Positive: Frequency, Dysuria Musculoskeletal: No: Pain Skin: No Rash Neurologic: Positive: Dizziness, No: Weakness Psychiatric: No: Depression Endocrine: No: Polydipsia Hematologic/Lymphatic: No: Easy Bruising Physical Exam Narrative GENERAL: Well-nourished, well-developed patient in no apparent distress. SKIN: Focused skin assessment reveals no rash and nodules. Skin is Warm and dry. HEAD: Atraumatic. Normocephalic. EYES: Pupils equal and round. No scleral icterus. No injection or drainage. ENT: No nasal bleeding or discharge. Mucous membranes pink and moist. NECK: Trachea midline. No JVD. CARDIOVASCULAR: Regular rate and rhythm. No murmur appreciated. RESPIRATORY: No accessory muscle use. Clear to auscultation. Breath sounds equal bilaterally. GASTROINTESTINAL: Abdomen soft, non-tender, nondistended. Hepatic and splenic margins not palpable. MUSCULOSKELETAL: No obvious deformities. No clubbing. No cyanosis. No edema. NEUROLOGICAL: Awake and alert. No obvious cranial nerve deficits. Motor grossly within normal limits. Normal speech. PSYCHIATRIC: Appropriate mood and affect; insight and judgment normal. Data Data Last Documented VS Vital Signs Date Time Temp Pulse Resp B/P Pulse Ox O2 Delivery O2 Flow Rate FiO2 01/06/17 09:25 97.6 105 20 116/73 98 Room Air Orders Iv Access Insert/Monitor (01/06/17 10:00) Complete Blood Count With Diff (01/06/17 10:00) Basic Metabolic Panel (Bmp) (01/06/17 10:00) Urinalysis - C+S If Indicated (01/06/17 10:00) Urine Culture (01/06/17 10:30) Labs Laboratory Tests Test 01/06/17 01/06/17 10:25 10:30 White Blood Count 4.4 TH/MM3 Red Blood Count 5.02 MIL/MM3 Hemoglobin 14.5 GM/DL Hematocrit 43.9 % Mean Corpuscular Volume 87.5 FL Mean Corpuscular Hemoglobin 29.0 PG Mean Corpuscular Hemoglobin 33.1 % Concent Red Cell Distribution Width 13.2 % Platelet Count 138 TH/MM3 Mean Platelet Volume 7.8 FL Neutrophils (%) (Auto) 66.8 % Lymphocytes (%) (Auto) 13.1 % Monocytes (%) (Auto) 10.2 % Eosinophils (%) (Auto) 7.8 % Basophils (%) (Auto) 2.1 % Neutrophils # (Auto) 2.9 TH/MM3 Lymphocytes # (Auto) 0.6 TH/MM3 Monocytes # (Auto) 0.4 TH/MM3 Eosinophils # (Auto) 0.3 TH/MM3 Basophils # (Auto) 0.1 TH/MM3 CBC Comment DIFF FINAL Differential Comment Sodium Level 138 MEQ/L Potassium Level 4.8 MEQ/L Chloride Level 106 MEQ/L Carbon Dioxide Level 23.7 MEQ/L Anion Gap 8 MEQ/L Blood Urea Nitrogen 22 MG/DL Creatinine 1.61 MG/DL Estimat Glomerular Filtration 44 ML/MIN Rate Random Glucose 97 MG/DL Calcium Level 8.7 MG/DL Urine Color LIGHT-RED Urine Turbidity HAZY Urine pH 6.0 Urine Specific H[place] 1.011 Urine Protein 100 mg/dL Urine Glucose (UA) NEG mg/dL Urine Ketones NEG mg/dL Urine Occult Blood LARGE Urine Nitrite NEG Urine Bilirubin NEG Urine Urobilinogen LESS THAN 2.0 MG/DL Urine Leukocyte Esterase LARGE Urine RBC /hpf Urine WBC 82 /hpf Urine Amorphous Sediment RARE Urine Bacteria MOD /hpf Microscopic Urinalysis Comment CULTURE INDICATED MDM Medical Decision Making Medical Screen Exam Complete: Yes Emergency Medical Condition: Yes Medical Record Reviewed: Yes Differential Diagnosis Cystitis, pyelonephritis, UTI, anemia, vasovagal episode Narrative Course I have reviewed the patient's electronic medical record. Reviewed his September [address] Abad Hernandez IV placed CBC is normal Metabolic profile shows creatinine 1.6 otherwise normal Urinalysis shows innumerable red cells with some white cells and will be cultured Presentation Is consistent with cystitis Plus he has an indwelling stent so we'll air on the side of caution and give him Cipro He needs to follow up his urologist for stent removal and reevaluation Diagnosis Primary Impression: Cystitis Additional Impressions: HTN (hypertension) Qualified Code: I10 - Essential hypertension Renal insufficiency, mild Additional Instructions: The patient was advised to follow up with their physician and return if they worsen. Follow up with urologist Med/Other Pt SpecificInfo: Prescription(s) given Scripts Lisinopril 30 Mg Tab30 Mg PO DAILY #30 TAB Ref 2 Prov:Dennis Yin MD 01/06/17 Ciprofloxacin (Cipro)500 Mg Ssy446 Mg PO BID #10 TAB Ref 0 Prov:Dennis Yin MD 01/06/17 Disposition: 01 DISCHARGE HOME Condition: Stable Dennis Yin MD Jan 06, 2017 10:03
[2017-01-06 10:50] LABS: AUTOMATED NEUTROPHIL # 2.9 TH/MM3 (1.8-7.7); BASOPHIL # 0.1 TH/MM3 (0-0.2); BASOPHIL % 2.1 % (0.0-2.0); EOSINOPHIL # 0.3 TH/MM3 (0-0.4); EOSINOPHIL % 7.8 % (0.0-4.0); HEMATOCRIT 43.9 % (39.0-51.0); HEMO FLAGS DIFF FINAL; LYMPH % 13.1 % (9.0-44.0); LYMPHOCYTE # 0.6 TH/MM3 (1.0-4.8); MEAN CELL VOLUME 87.5 FL (80.0-100.0); MEAN CORPUSCULAR HGB CONC 33.1 % (32.0-36.0); MONO % 10.2 % (0.0-8.0); NEUT % 66.8 % (16.0-70.0); PLATELET COUNT 138 TH/MM3 (150-450); RED BLOOD COUNT 5.02 MIL/MM3 (4.50-5.90); RED CELL DISTRIBUTION WIDTH 13.2 % (11.6-17.2); WHITE BLOOD COUNT 4.4 TH/MM3 (4.0-11.0)
[2017-01-06 10:56] LABS: BACTERIA, URINE MOD /hpf; BLOOD, URINE LARGE (NEG); COMMENT (UR) CULTURE INDICATED; CULTURE IF INDICATED CULTURE INDICATED; GLUCOSE,URINE NEG (NEG); KETONE, URINE NEG (NEG); NITRITE,URINE NEG (NEG); URINE COLOR LIGHT-RED (YELLW/STRAW)
[2017-01-06 11:25] LABS: BICARBONATE 23.7 MEQ/L (21.0-32.0); POTASSIUM 4.8 MEQ/L (3.5-5.1)
[2017-01-06] MEDS ORDERED: CIPR-9 PO (12:22)
[2017-01-06] MEDS ORDERED: LISI30TA4 PO (12:23)
== END 2017-01-06 12:32 | disposition home or self-care (01) ==
LOC: NEPD 09:23
DX: N30.90 Cystitis, unspecified without hematuria (principal); B96.89 Other specified bacterial agents as the cause of diseases classified elsewhere; I10 Essential (primary) hypertension; N28.9 Disorder of kidney and ureter, unspecified
CPT/HCPCS: 80048; 81001; 85025; 87086; 99284

== ENCOUNTER 2017-04-24 14:36 | Emergency (ER) | payer OTHER ==
[~2017-04-24] VITALS: Ht 160 cm; Wt 85.0 kg
[~2017-04-24 14:36] MED LIST changes: -BACT800T5 PO; +CIPR-9 PO
[2017-04-24 14:41] VITALS: BP 141/89; PULSE 121; RESP 16; TEMP 99.1; O2SAT 93
--- NOTE | 2017-04-24 14:49 | PD ---
Physical Exam Date Seen by Provider: Apr 24, 2017 Time Seen by Provider: 14:47 Narrative 62 yo male here for evaluation of urinary symptoms. History of having stent placed for stone. Having pain for this. Has patient assistance and cannot see Dr Hernandez who told him he might need it out at some point. States he thinks this is the cause. Also history of UTIs in the past. pain is 8/10. Vitals are stable with exception of elevated HR, was told by biomedical technician possible A fib with pulse ox showing HR in the 200s. Palpated by me 120s. Awaiting bed placement. Data Data Last Documented VS Vital Signs Date Time Temp Pulse Resp B/P (MAP) Pulse Ox O2 Delivery O2 Flow Rate FiO2 04/24/17 14:41 99.1 121 16 141/89 (106) 93 Room Air [facility] Medical Record Reviewed: Yes Supervised Visit with YONI: Frank Diane Apr 24, 2017 14:49
[2017-04-24 15:26] LABS: BASOPHIL % 0.8 % (0.0-2.0); EOSINOPHIL # 0.6 TH/MM3 (0-0.4); EOSINOPHIL % 12.3 % (0.0-4.0); HEMATOCRIT 43.2 % (39.0-51.0); HEMO FLAGS DIFF FINAL; LYMPH % 16.3 % (9.0-44.0); LYMPHOCYTE # 0.8 TH/MM3 (1.0-4.8); MEAN CELL VOLUME 87.1 FL (80.0-100.0); MEAN CORPUSCULAR HEMOGLOBIN 28.7 PG (27.0-34.0); MONO % 13.4 % (0.0-8.0); NEUT % 57.2 % (16.0-70.0); PLATELET COUNT 147 TH/MM3 (150-450); RED BLOOD COUNT 4.96 MIL/MM3 (4.50-5.90); RED CELL DISTRIBUTION WIDTH 14.1 % (11.6-17.2); WHITE BLOOD COUNT 5.2 TH/MM3 (4.0-11.0)
[2017-04-24 15:33] LABS: BACTERIA, URINE OCC /hpf; BLOOD, URINE MOD (NEG); GLUCOSE,URINE NEG (NEG); KETONE, URINE NEG (NEG); NITRITE,URINE NEG (NEG); PH, URINE 6.5 (5.0-8.5)
[2017-04-24 15:38] LABS: COMMENT (UR) CULTURE INDICATED; CULTURE IF INDICATED CULTURE INDICATED; URINE COLOR LIGHT-RED (YELLW/STRAW)
--- NOTE | 2017-04-24 15:52 | PD ---
HPI Chief Complaint: Complaint Time Seen by Provider: 15:27 Travel History International Travel<30 days: No Contact w/Intl Traveler<30days: No Traveled to known affect area: No History of Present Illness HPI Patient is a 62-year-old male presenting to the emergency department for evaluation of low back pain, hematuria. He states it's been going on for over a month however for the last week he's been passing clots. Ear, chills, nausea , vomiting, abdominal pain. He does report pain to his left testicle. He states this has also been going on for several weeks. He denies any unprotected sexual intercourse. He denies any penile discharge. He had a history of a ureteral stent placed several months ago and was told that it may need to come out at some point. He has a history of frequent urinary tract infections and was followed by Dr. Hernandez. Patient moved out of town and has been back and has not been able to follow-up with Dr. Hernandez. [facility] Past Medical History Hx Anticoagulant Therapy: No Arthritis: Yes (DJD) Asthma: Yes Bipolar Disorder: Yes Anxiety: No Depression: Yes Heart Rhythm Problems: No Cancer: No Cardiac Catheterization: No Cardiovascular Problems: Yes (CARDIOMYOPATHY, H/O IVDU, HTN) High Cholesterol: No Chemotherapy: No Chest Pain: No Congestive Heart Failure: No Cerebrovascular Accident: No Diabetes: No Diminished Hearing: No Endocrine: No Gastrointestinal Disorders: Yes (GALLSTONE ) Genitourinary: Yes (STONES) Headaches: Yes (related to htn) Hepatitis: Yes (HEP C) Hiatal Hernia: No Hypertension: Yes Immune Disorder: No Inguinal Hernia: Yes (REPAIRED RIGHT GROIN) Implanted Vascular Access Dvce: No Kidney Stones: Yes Musculoskeletal: Yes (CHRONIC BACK AND NECK PAIN) Neurologic: No Psychiatric: Yes Reproductive: No Respiratory: Yes (ASTHMA) Immunizations Current: Yes Migraines: Yes Renal Failure: No Thyroid Disease: No Past Surgical History Abdominal Surgery: Yes (HERNIA RIGHT GROIN REPAIRED, REPAIRED CHILD) AICD: No Body Medical Devices: LEFT ANKLE PINS Cardiac Surgery: No Coronary Artery Bypass Graft: No Ear Surgery: No Endocrine Surgery: No Eye Surgery: Yes (cyst on eye) Genitourinary Surgery: Yes (lithotripsy X2, R KIDNEY STENT) Gynecologic Surgery: No Hysterectomy: No Joint Replacement: No Neurologic Surgery: No Oral Surgery: No Pacemaker: No Thoracic Surgery: No Other Surgery: Yes (THUMB SURGERY FROM LACERATION) Social History Alcohol Use: No (QUIT 2011) Tobacco Use: No 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 - QUIT 2011) Allergies-Medications (Allergen,Severity, Reaction): Coded Allergies: chisholm (Unverified Allergy, Severe, THROAT SWELLS, 04/24/17) grass pollen (Unverified Allergy, Severe, ASTHMA, 04/24/17) house dust (Unverified Allergy, Severe, ASTHMA, 04/24/17) tree nut (Unverified Allergy, Severe, THROAT SWELLS, 04/24/17) Reported Meds & Prescriptions Reported Meds & Active Scripts Active Nitrofurantoin Monohydrate Macrocrystals (Nitrofurantoin Monoh/Nitrofur Macro) 100 Mg Cap 100 Mg PO BID 7 Days Lisinopril 30 Mg Tab 30 Mg PO DAILY Cipro (Ciprofloxacin HCl) 500 Mg Tab 500 Mg PO BID Flomax (Tamsulosin HCl) 0.4 Mg Cap 0.4 Mg PO HS Reported Seroquel (Quetiapine Fumarate) 200 Mg Tab 200 Mg PO HS Effexor XR 24 HR (Venlafaxine HCl) 75 Mg Cap 225 Mg PO DAILY Review of Systems Except as stated in HPI: all other systems reviewed are Neg General / Constitutional: No: Fever, Chills HENT: No: Headaches Cardiovascular: No: Chest Pain or Discomfort Respiratory: No: Shortness of Breath Gastrointestinal: No: Nausea Genitourinary: Positive: Frequency, Hematuria, Decreased Urinary Output, Hesitancy, Other (F testicle pain) Neurologic: No: Weakness, Focal Abnormalities Physical Exam Narrative GENERAL: Well-developed, well-nourished, alert male. Resting comfortably in no acute distress. SKIN: Warm and dry. HEAD: Atraumatic. Normocephalic. EYES: Pupils equal and round. No scleral icterus. No injection or drainage. ENT: No nasal bleeding or discharge. Mucous membranes pink and moist. NECK: Trachea midline. No JVD. CARDIOVASCULAR: Regular rate and rhythm. RESPIRATORY: No accessory muscle use. Clear to auscultation. Breath sounds equal bilaterally. GASTROINTESTINAL: Abdomen soft, non-tender, nondistended. Hepatic and splenic margins not palpable. MUSCULOSKELETAL: Extremities without clubbing, cyanosis, or edema. No obvious deformities. CVAT bilaterally. There is tenderness palpation in the paraspinal musculature on the right GENITOURINARY: Circumcised. Testes descended bilaterally without evidence of rotation. No lesions or erythema. No urethral discharge. Left testicle is tender to palpation posteriorly. NEUROLOGICAL: Awake and alert. No obvious cranial nerve deficits. Motor grossly within normal limits. Five out of 5 muscle strength in the arms and legs. Normal speech. PSYCHIATRIC: Appropriate mood and affect; insight and judgment normal. Data Data Last Documented VS Vital Signs Date Time Temp Pulse Resp B/P (MAP) Pulse Ox O2 Delivery O2 Flow Rate FiO2 04/24/17 15:40 77 04/24/17 14:41 99.1 16 141/89 (106) 93 Room Air Orders Orders Electrocardiogram (04/24/17 14:49) Complete Blood Count With Diff (04/24/17 14:49) Basic Metabolic Panel (Bmp) (04/24/17 14:49) Urinalysis - C+S If Indicated (04/24/17 14:49) Magnesium (Mg) (04/24/17 14:49) Us Testicles W Doppler (04/24/17 ) Us Kidney/Renal/Bladder (04/24/17 ) Urine Culture (04/24/17 15:06) Sodium Chlor 0.9% 1000 Ml Inj (Ns 1000 M (04/24/17 16:00) Labs Laboratory Tests Test 04/24/17 15:06 White Blood Count 5.2 TH/MM3 Red Blood Count 4.96 MIL/MM3 Hemoglobin 14.2 GM/DL Hematocrit 43.2 % Mean Corpuscular Volume 87.1 FL Mean Corpuscular Hemoglobin 28.7 PG Mean Corpuscular Hemoglobin Concent 33.0 % Red Cell Distribution Width 14.1 % Platelet Count 147 TH/MM3 Mean Platelet Volume 7.8 FL Neutrophils (%) (Auto) 57.2 % Lymphocytes (%) (Auto) 16.3 % Monocytes (%) (Auto) 13.4 % Eosinophils (%) (Auto) 12.3 % Basophils (%) (Auto) 0.8 % Neutrophils # (Auto) 3.0 TH/MM3 Lymphocytes # (Auto) 0.8 TH/MM3 Monocytes # (Auto) 0.7 TH/MM3 Eosinophils # (Auto) 0.6 TH/MM3 Basophils # (Auto) 0.0 TH/MM3 CBC Comment DIFF FINAL Differential Comment Urine Color LIGHT-RED Urine Turbidity CLOUDY Urine pH 6.5 Urine Specific [place] 1.015 Urine Protein 100 mg/dL Urine Glucose (UA) NEG mg/dL Urine Ketones NEG mg/dL Urine Occult Blood MOD Urine Nitrite NEG Urine Bilirubin NEG Urine Urobilinogen LESS THAN 2.0 MG/DL Urine Leukocyte Esterase MOD Urine RBC /hpf Urine WBC /hpf Urine Bacteria OCC /hpf Microscopic Urinalysis Comment CULTURE INDICATED Blood Urea Nitrogen 15 MG/DL Creatinine 1.48 MG/DL Random Glucose 105 MG/DL Calcium Level 8.7 MG/DL Magnesium Level 1.9 MG/DL Sodium Level 138 MEQ/L Potassium Level 4.4 MEQ/L Chloride Level 106 MEQ/L Carbon Dioxide Level 24.6 MEQ/L Anion Gap 7 MEQ/L Estimat Glomerular Filtration Rate 48 ML/MIN MDM Medical Decision Making Medical Screen Exam Complete: Yes Emergency Medical Condition: Yes Medical Record Reviewed: Yes Interpretation(s) Vital Signs Date Time Temp Pulse Resp B/P (MAP) Pulse Ox O2 Delivery O2 Flow Rate FiO2 04/24/17 15:40 77 04/24/17 14:41 99.1 121 16 141/89 (106) 93 Room Air Laboratory Tests Test 04/24/17 15:06 White Blood Count 5.2 TH/MM3 Red Blood Count 4.96 MIL/MM3 Hemoglobin 14.2 GM/DL Hematocrit 43.2 % Mean Corpuscular Volume 87.1 FL Mean Corpuscular Hemoglobin 28.7 PG Mean Corpuscular Hemoglobin Concent 33.0 % Red Cell Distribution Width 14.1 % Platelet Count 147 TH/MM3 Mean Platelet Volume 7.8 FL Neutrophils (%) (Auto) 57.2 % Lymphocytes (%) (Auto) 16.3 % Monocytes (%) (Auto) 13.4 % Eosinophils (%) (Auto) 12.3 % Basophils (%) (Auto) 0.8 % Neutrophils # (Auto) 3.0 TH/MM3 Lymphocytes # (Auto) 0.8 TH/MM3 Monocytes # (Auto) 0.7 TH/MM3 Eosinophils # (Auto) 0.6 TH/MM3 Basophils # (Auto) 0.0 TH/MM3 CBC Comment DIFF FINAL Differential Comment Urine Color LIGHT-RED Urine Turbidity CLOUDY Urine pH 6.5 Urine Specific [place] 1.015 Urine Protein 100 mg/dL Urine Glucose (UA) NEG mg/dL Urine Ketones NEG mg/dL Urine Occult Blood MOD Urine Nitrite NEG Urine Bilirubin NEG Urine Urobilinogen LESS THAN 2.0 MG/DL Urine Leukocyte Esterase MOD Urine RBC /hpf Urine WBC /hpf Urine Bacteria OCC /hpf Microscopic Urinalysis Comment CULTURE INDICATED Blood Urea Nitrogen 15 MG/DL Creatinine 1.48 MG/DL Random Glucose 105 MG/DL Calcium Level 8.7 MG/DL Magnesium Level 1.9 MG/DL Sodium Level 138 MEQ/L Potassium Level 4.4 MEQ/L Chloride Level 106 MEQ/L Carbon Dioxide Level 24.6 MEQ/L Anion Gap 7 MEQ/L Estimat Glomerular Filtration Rate 48 ML/MIN Last Impressions Scrotum Ultrasound 04/24/17 0000 Signed Impressions: Service Date/Time: Monday, April 24, 2017 16:19 - CONCLUSION: 1. Small bilateral hydroceles. 2. No intratesticular mass identified. 3. Blood flow is intact and symmetric bilaterally. Amarjit Sen MD Renal Ultrasound 04/24/17 0000 Signed Impressions: Service Date/Time: Monday, April 24, 2017 16:03 - CONCLUSION: 1. Slightly small kidneys with slightly lobulated renal contours similar to prior CT exam. 2. Right sided ureteral stent in place with slight prominence of the proximal ureter but no significant hydronephrosis. This is likely due to residual ureteral prominence although partially obstructed ureteral stent may have a similar appearance acutely. 3. No significant residual calculi. Peterson Waters MD Differential Diagnosis UTI versus pyelonephritis versus obstruction versus epididymitis versus other Narrative Course Patient presented with 1 month of hematuria and 1 week of clots. VSS, he was tachycardic on initial presentation, HR is no 77. CBC unremarkable, chem with slight elevation in creatinine otherwise no acute abnormalities. UA cloudy, moderate occult blood, moderate leukocyte esterase. Reflex culture pending. Renal ultrasound shows slightly small kidneys with slightly low belated renal contour similar to prior CT exam. Right-sided ureteral stent in place with slight prominence of the proximal ureter but no significant hydronephrosis. This is likely due to residual ureteral prominence although partially obstructed ureteral stent may have a similar appearance acutely. No significant residual renal calculi. Ultrasound of the scrotum shows small bilateral hydroceles, no intratesticular masses identified. Blood flow is intact and symmetric bilaterally. Patient will be discharged home on antibiotics. He is to follow-up with Dr. Hernandez. He can return to emergency department for any new or worsening symptoms. He was encouraged to increase fluid intake. Discussed plan of care with Dr. Henry, who is in agreement. Pt is stable for discharge. Diagnosis Primary Impression: Cystitis Referrals: Ken Hernandez DO 3 days Patient Instructions: General Instructions, Urinary Tract Infection in Men (ED) Additional Instructions: Follow-up with Dr. Hernandez, call his office to schedule an appointment Complete full course of antibiotics as prescribed Increase fluid intake Return to emergency department for any new or worsening symptoms Med/Other Pt SpecificInfo: Prescription(s) given Scripts Sulfamethoxazole-Trimethoprim (Bactrim DS) 800-160 Mg Tab 1 TAB PO BID for Infection, #20 TAB 0 Refills Prov: Afshan Ziegler 04/24/17 Disposition: 01 DISCHARGE HOME Condition: Stable Afshan Ziegler Apr 24, 2017 15:52
[2017-04-24 16:00] LABS: BICARBONATE 24.6 MEQ/L (21.0-32.0); MAGNESIUM 1.9 MG/DL (1.5-2.5)
[2017-04-24] MEDS ORDERED: SODIUM CHLOR 0.9% 1000 ML INJ 1,000 ML IV ONE (16:00)
[2017-04-24 16:01] LABS: POTASSIUM 4.4 MEQ/L (3.5-5.1)
--- NOTE | 2017-04-24 17:09 | RADRPT ---
EXAM DATE/TIME: 04/24/2017 16:19 [facility] COMPARISON: US KIDNEY/RENAL/BLADDER, April 24, 2017, 16:03. INDICATIONS : Testicle pain. MEDICAL HISTORY : Hypertension. Renal calculi. Testicle pain. Angina. UTI. Inguinal hernia. Arthritis. Osteoarthritis. Hepatitis C. Bipolar disorder. History of IV drug use. SURGICAL HISTORY : Inguinal hernia repair. Herniorrhaphy. Left ankle surgery. Right kidney stent. Lithotripsy. Right jenelle mb surgery. Cyst on eye removed. ENCOUNTER: Initial ACUITY: 1 month PAIN SCORE: 2/10 LOCATION: Bilateral scrotum. MEASUREMENTS: RIGHT TESTICLE: 4.3 x 3.2 x 2.6cm LEFT TESTICLE: 3.8 x 3.2 x 2.4cm FINDINGS: RIGHT TESTICLE: Homogeneous echotexture without intra or extratesticular mass. Blood flow is symmetric and within no rmal limits. There is a small hydrocele identified. The epididymis is intact. LEFT TESTICLE: Homogeneous echotexture without intra or extratesticular mass. Blood flow is symmetric and within no rmal limits. There is a small hydrocele evident. No varicocele is identified. The epididymis is intac t. SCROTUM: Within normal limits. CONCLUSION: 1. Small bilateral hydroceles. 2. No intratesticular mass identified. 3. Blood flow is intact and symmetric bilaterally. Amarjit Sen MD on April 24, 2017 at 17:06 Board Certified Radiologist. This report was verified electronically.
--- NOTE | 2017-04-24 17:10 | RADRPT ---
EXAM DATE/TIME: 04/24/2017 16:03 [facility] COMPARISON: CT ABDOMEN & PELVIS W/O CONTRAST, September 12, 2016, 19:07. INDICATIONS : Hematuria. MEDICAL HISTORY : Hypertension. Renal calculi. Testicle pain. Angina. UTI. Inguinal hernia. Arthritis. Osteoarthritis . Hepatitis C. Bipolar disorder. History of IV drug use. SURGICAL HISTORY : Inguinal hernia repair. Herniorrhaphy. Left ankle surgery. Right kidney stent. Lithotripsy. Right thumb surgery. Cyst on eye removed. ENCOUNTER: Initial ACUITY: 1 month PAIN SCORE: 0/10 LOCATION: Bilateral flank MEASUREMENTS: RIGHT KIDNEY: 10.8 x 5.5 x 5.2 cm LEFT KIDNEY: 9.5 x 5.0 x 5.0 cm FINDINGS: RIGHT KIDNEY: Lobulated renal contour. Ureteral stent in place with slight prominence of the proximal ureter withou t significant hydronephrosis. LEFT KIDNEY: Lobulated renal contour. Small 2.5 x 2.1 x 1.6 cm anechoic cyst in the mid renal pole. BLADDER: Within normal limits given the degree of distension. CONCLUSION: 1. Slightly small kidneys with slightly lobulated renal contours similar to prior CT exam. 2. Right sided ureteral stent in place with slight prominence of the proximal ureter but no significa nt hydronephrosis. This is likely due to residual ureteral prominence although partially obstructed u reteral stent may have a similar appearance acutely. 3. No significant residual calculi. Peterson Waters MD on April 24, 2017 at 17:02 Board Certified Radiologist. This report was verified electronically.
[2017-04-24] MEDS ORDERED: NITR100C4 PO (17:28)
[2017-04-24] MEDS ORDERED: BACT800T5 PO (17:31)
--- NOTE | 2017-04-25 12:12 | EKG ---
Date Performed: 04/24/2017 Time Performed: 14:56:01 PTAGE: 62 years EKG: SINUS TACHYCARDIA WITH OCCASIONAL SUPRAVENTRICULAR PREMATURE COMPLEXES ABNORMAL RHYTHM ECG Compared to prior tracing no significant change PREVIOUS TRACING : 11/19/2015 09.18 DOCTOR: Marcio Perez Interpretating Date/Time 04/25/2017 12:09:49
[2017-05-10] MEDS ORDERED: BACT800T5 PO (17:21)
== END 2017-04-24 17:47 | disposition home or self-care (01) ==
LOC: NEPE 14:36
DX: N30.91 Cystitis, unspecified with hematuria (principal); B96.89 Other specified bacterial agents as the cause of diseases classified elsewhere; N43.3 Hydrocele, unspecified; I10 Essential (primary) hypertension; Z79.899 Other long term (current) drug therapy
CPT/HCPCS: 76775; 76870; 80048; 81001; 83735; 85025; 87086; 93005; 93975; 99285; J7030

== ENCOUNTER → 2017-05-15 | Outpatient (CLI) | payer OTHER ==
[~2017-05-15] MED LIST changes: +BACT800T5 PO
--- NOTE | 2017-05-15 11:30 | RADRPT ---
EXAM DATE/TIME: 05/15/2017 09:46 [facility] COMPARISON: ABDOMEN KUB ONLY, April 06, 2016, 6:53. INDICATIONS : Right sided abdominal pain MEDICAL HISTORY : Hypertension. Renal calculi. Testicle pain. Angina. UTI. Inguinal hernia. ArthritisOsteoarthritis. He patitis C. Bipolar disorder. History of IV drug use. SURGICAL HISTORY : Inguinal hernia repair. Herniorrhaphy. Left ankle surgery. Right kidney stent. Lithotripsy. Right jenelle mb surgery. Cyst on eye removed ENCOUNTER: Initial ACUITY: 2 months PAIN SCORE: 0/10 LOCATION: Right flank FINDINGS: Supine view of the abdomen was performed. The abdominal bowel gas pattern is normal. No abnormal ma sses, calcifications, or organomegaly is seen. There is a double J stent on the right. No discernible stones. Venous calcifications overlie the left pelvis. The osseous structures are unremarkable. CONCLUSION: 1. Right sided double-J stent without discernible stones. 2. Normal bowel gas pattern. David Ibarra Jr., MD on May 15, 2017 at 11:27 Board Certified Radiologist. This report was verified electronically.
== END ==
LOC: HRAD 09:34
PROVIDERS: ATTEND Urology
DX: N12 Tubulo-interstitial nephritis, not specified as acute or chronic (principal)
CPT/HCPCS: 74000

== ENCOUNTER 2017-07-09 11:12 | Emergency (ER) | payer OTHER ==
[~2017-07-09] VITALS: Ht 160 cm; Wt 82.0 kg
[~2017-07-09 11:12] MED LIST changes: -CIPR-9 PO
[2017-07-09 11:16] VITALS: BP 142/107; PULSE 138; RESP 22; TEMP 97.8; O2SAT 95
--- NOTE | 2017-07-09 11:32 | PD ---
HPI Chief Complaint: Injury Time Seen by Provider: 11:29 Travel History International Travel<30 days: No Contact w/Intl Traveler<30days: No Traveled to known affect area: No History of Present Illness HPI 62-year-old male presents to emergency department for evaluation of right foot pain and bruising since injuring his foot 5 days ago. Patient states he thought that it would get better with ice and elevation however it has began to develop ecchymosis and pain is worse. He has been ambulating but states this is painful. Rates pain a constant, throbbing when the foot is down. States it is severe. He states that it makes his heart rate increased. It is not radiating anywhere. No alterations in sensation. No other symptoms to report. PFSH Past Medical History Hx Anticoagulant Therapy: No Arthritis: Yes (DJD) Asthma: Yes Bipolar Disorder: Yes Anxiety: No Depression: Yes Heart Rhythm Problems: No Cancer: No Cardiac Catheterization: No Cardiovascular Problems: Yes High Cholesterol: No Chemotherapy: No Chest Pain: No Congestive Heart Failure: No Cerebrovascular Accident: No Diabetes: No Diminished Hearing: No Endocrine: No Gastrointestinal Disorders: Yes (GALLSTONE ) Genitourinary: Yes (STONES) Headaches: Yes (related to htn) Hepatitis: Yes (HEP C) Hiatal Hernia: No Hypertension: Yes Immune Disorder: No Inguinal Hernia: Yes (REPAIRED RIGHT GROIN) Implanted Vascular Access Dvce: No Kidney Stones: Yes Musculoskeletal: Yes (CHRONIC BACK AND NECK PAIN) Neurologic: No Psychiatric: Yes Reproductive: No Respiratory: Yes Immunizations Current: Yes Migraines: Yes Renal Failure: No Thyroid Disease: No Past Surgical History Abdominal Surgery: Yes (HERNIA RIGHT GROIN REPAIRED, REPAIRED CHILD) AICD: No Body Medical Devices: LEFT ANKLE PINS Cardiac Surgery: No Coronary Artery Bypass Graft: No Ear Surgery: No Endocrine Surgery: No Eye Surgery: Yes (cyst on eye) Genitourinary Surgery: Yes (lithotripsy X2, R KIDNEY STENT) Gynecologic Surgery: No Hysterectomy: No Joint Replacement: No Neurologic Surgery: No Oral Surgery: No Pacemaker: No Thoracic Surgery: No Other Surgery: Yes (THUMB SURGERY FROM LACERATION) Social History Alcohol Use: No (QUIT 2011) Tobacco Use: No 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 - QUIT 2011) Allergies-Medications (Allergen,Severity, Reaction): Coded Allergies: chisholm (Verified Allergy, Severe, THROAT SWELLS, 07/09/17) grass pollen (Verified Allergy, Severe, ASTHMA, 07/09/17) house dust (Verified Allergy, Severe, ASTHMA, 07/09/17) tree nut (Verified Allergy, Severe, THROAT SWELLS, 07/09/17) Reported Meds & Prescriptions Reported Meds & Active Scripts Active Lisinopril 30 Mg Tab 30 Mg PO DAILY [place] (Hydrocodone-Acetaminophen) 5 Mg-325 Mg Tab 1 Tab PO Q6H PRN Ibuprofen 600 Mg Tab 600 Mg PO Q8H PRN Lisinopril 30 Mg Tab 30 Mg PO DAILY Reported Flomax (Tamsulosin HCl) 0.4 Mg Cap 0.4 Mg PO HS Seroquel (Quetiapine Fumarate) 200 Mg Tab 200 Mg PO HS Effexor XR 24 HR (Venlafaxine HCl) 75 Mg Cap 150 Mg PO DAILY Review of Systems Except as stated in HPI: all other systems reviewed are Neg Physical Exam Narrative GENERAL: Well-nourished, well-developed patient in no acute distress SKIN: Focused skin assessment warm/dry. HEAD: Normocephalic. EYES: No scleral icterus. No injection or drainage. NECK: Supple, trachea midline. No JVD or lymphadenopathy. CARDIOVASCULAR: Tachycardic rate and rhythm without murmurs, gallops, or rubs. RESPIRATORY: Breath sounds equal bilaterally. No accessory muscle use. MUSCULOSKELETAL: No cyanosis. Mild edema of the dorsal aspect of the right foot with ecchymosis surrounding the toes. No deformity. Cap refill within normal limits. BACK: Nontender without obvious deformity. No CVA tenderness. Data Data Last Documented VS Vital Signs Date Time Temp Pulse Resp B/P (MAP) Pulse Ox O2 Delivery O2 Flow Rate FiO2 07/09/17 13:09 07/09/17 12:23 103 07/09/17 11:29 17 97 07/09/17 11:16 97.8 Orders Orders Electrocardiogram (07/09/17 ) Foot, Complete (Ycg0lat) (07/09/17 ) Sodium Chlor 0.9% 1000 Ml Inj (Ns 1000 M (07/09/17 11:45) Morphine Inj (Morphine Inj) (07/09/17 11:45) Ketorolac Inj (Toradol Inj) (07/09/17 11:45) Ondansetron Inj (Zofran Inj) (07/09/17 11:45) Post Op Boot (Shoe) (07/09/17 ) Shoe Cast (07/09/17 ) Ed Discharge Order (07/09/17 13:01) [facility] Medical Decision Making Medical Screen Exam Complete: Yes Emergency Medical Condition: Yes Medical Record Reviewed: Yes Differential Diagnosis Contusion versus fracture versus dislocation Narrative Course 62-year-old male presents versus prominent for evaluation right foot pain following an injury 5 days ago. X-ray imaging shows a fracture of the proximal phalanx of the right great toe. Patient is placed in a postop shoe. He is counseled on care. He is also requesting a refill of his lisinopril. Upon reassessment pain management, patient's heart rate has decreased very does remain tachycardic. I discussed the patient my attending and he'll be discharged at this time. Diagnosis Primary Impression: Fracture of right great toe Qualified Codes: S92.414A - Nondisplaced fracture of proximal phalanx of right great toe, initial encounter for closed fracture Additional Impressions: Foot contusion Qualified Codes: S90.31XA - Contusion of right foot, initial encounter HTN (hypertension) Qualified Codes: I10 - Essential (primary) hypertension Referrals: Services Delivery Driver Primary Care Physician Patient Instructions: General Instructions, Toe Fracture (ED) Additional Instructions: Ice and elevate to reduce pain and swelling Wear your postoperative for support You may fozia tape the broken great toe and the second toe together for additional support Follow-up with a fixed wing aircraft flight engineer Follow-up with your primary care Return immediately with any acute worsening of symptoms Med/Other Pt SpecificInfo: Prescription(s) given Scripts Lisinopril (Lisinopril) 30 Mg Tab 30 MG PO DAILY for Blood Pressure Management, #30 TAB 0 Refills Prov: Zita Thompson 07/09/17 Hydrocodone-Acetaminophen ([place]) 5 Mg-325 Mg Tab 1 TAB PO Q6H Y for PAIN GREATER THAN 6, #6 TAB 0 Refills Prov: Zita Thompson 07/09/17 Ibuprofen (Ibuprofen) 600 Mg Tab 600 MG PO Q8H Y for PAIN, #30 TAB 0 Refills Prov: Zita Thompson 07/09/17 Disposition: 01 DISCHARGE HOME Condition: Stable Zita Thompson Jul 09, 2017 11:32
[2017-07-09] MEDS ORDERED: TAMS5CAP PO (11:33)
[2017-07-09] MEDS ORDERED: ONDANSETRON HCL 4 MG/2 ML VIAL IV PUSH ONE (11:45)
[2017-07-09] MEDS ORDERED: MORPHINE SULFATE 2 MG/ML INJ IV PUSH ONE (11:45)
[2017-07-09] MEDS ORDERED: SODIUM CHLOR 0.9% 1000 ML INJ 1,000 ML IV ONE (11:45)
[2017-07-09] MEDS ORDERED: KETOROLAC TROMETHAMINE 30 MG/ML (IVP) VIAL IV PUSH ONE (11:45)
--- NOTE | 2017-07-09 12:00 | RADRPT ---
EXAM DATE/TIME: 07/09/2017 11:40 [facility] COMPARISON: No previous studies available for comparison. INDICATIONS : Pain post fall. MEDICAL HISTORY : Arthritis. SURGICAL HISTORY : Left ankle pin. ENCOUNTER: Initial ACUITY: 4 - 6 days PAIN SCORE: 8/10 LOCATION: Right Foot. FINDINGS: There is a mildly comminuted but essentially nondisplaced fracture in the midshaft region of the grea t toe proximal phalanx. This is potentially nonacute but please correlate clinically. Otherwise, bone s of the right foot appear intact. There are no subluxations. CONCLUSION: Mildly comminuted, minimally displaced midshaft fracture of the great toe proximal phalanx. Otherwise negative. Dino Ibarra MD on July 09, 2017 at 11:56 Board Certified Radiologist. This report was verified electronically.
[2017-07-09 12:23] VITALS: PULSE 103
[2017-07-09] MEDS ORDERED: NORC5TAB PO (13:05)
[2017-07-09] MEDS ORDERED: IBUP-232 PO (13:05)
[2017-07-09] MEDS ORDERED: LISI30TA4 PO (13:08)
--- NOTE | 2017-07-10 19:07 | EKG ---
Date Performed: 07/09/2017 Time Performed: 11:36:31 PTAGE: 62 years EKG: SINUS TACHYCARDIA NONSPECIFIC ST & T-WAVE ABNORMALITY ABNORMAL RHYTHM ECG PREVIOUS TRACING : 04/24/2017 14.56 Compared to prior tracing no significant change DOCTOR: Stan Jamison Interpretating Date/Time 07/10/2017 19:06:32
== END 2017-07-09 13:40 | disposition home or self-care (01) ==
LOC: NEPE 11:12
DX: S92.411A Displaced fracture of proximal phalanx of right great toe, initial encounter for closed fracture (principal); S90.31XA Contusion of right foot, initial encounter; I10 Essential (primary) hypertension; R00.0 Tachycardia, unspecified; R94.31 Abnormal electrocardiogram [ECG] [EKG]; F31.9 Bipolar disorder, unspecified; J45.909 Unspecified asthma, uncomplicated; X58.XXXA Exposure to other specified factors, initial encounter; Z79.899 Other long term (current) drug therapy
CPT/HCPCS: 73630; 93005; 96361; 96374; 96375; 99284; J1885; J2270; J2405; J7030; L3260

== ENCOUNTER 2018-07-07 23:54 | Inpatient (IN) ==
[2018-07-08] MEDS ORDERED: Acetaminophen 325 MG Tablet PO ONE (00:06)
[2018-07-08] MEDS ORDERED: Sod Chloride 0.9% Inj 1,000 ML IV.SIG SCH ×2 (00:15)
[2018-07-08] MEDS ORDERED: Sod Chloride 0.9% Inj 700 ML IV.SIG SCH (00:15)
--- NOTE | 2018-07-08 00:29 | XR ---
EXAM DATE: 07/08/2018 12:26 AM EST AGE/SEX: 63 years / Male INDICATIONS: Shortness of breath. CLINICAL DATA: This is the patient's initial encounter. Patient reports that signs and symptoms have been present for 1 day and indicates a pain score of 0/10. MEDICAL/SURGICAL HISTORY: Cardiovascular disease. Hypertension. None. COMPARISON: [facility] – [place], CHEST 1V SINGLE AP, 07/03/2018. . FINDINGS: There is a parenchymal density in the left lung base which may be related to subsegmental atelectasis . No obvious consolidation. No effusions. Osseous structures are intact. Cardiomegaly. CONCLUSION: Left basilar atelectasis suspected. Electronically signed by: Buddy Grace MD 07/08/2018 12:27 AM EST
--- NOTE | 2018-07-08 00:40 | ED ---
HPI General Chief complaint: Altered Mental Status Stated complaint: Overdose Time Seen by Provider: 07/08/18 00:05 Source: EMS Mode of arrival: EMS Limitations: altered mental status History of Present Illness Onset (ago): day(s) (2) Severity: mild Quality: other (The patient just has not been acting right for the last couple of days) Pain Consistency: constant Relieving factors: none Exacerbating factors: none Associated symptoms: Reports other (Review of systems is very difficult because the patient goes off on tangents when you ask him a question. Therefore, I do not know whether or not he has any associated symptoms.) Treatments prior to arrival: Reports none Related Data Home Medications Medication Instructions Recorded Confirmed divalproex 250 mg PO BID 07/03/18 07/03/18 duloxetine [Cymbalta] 60 mg PO DAILY 07/03/18 07/03/18 lisinopril 30 mg PO DAILY 07/03/18 07/03/18 trazodone 50 mg PO HS 07/03/18 07/03/18 venlafaxine [Effexor XR] 75 mg PO DAILY 07/03/18 07/03/18 Allergies Allergy/AdvReac Type Severity Reaction Status Date / Time chisholm Allergy Severe THROAT Verified 07/03/18 13:07 SWEJOSUES grass pollen Allergy Severe ASTHMA Verified 07/03/18 13:07 house dust Allergy Severe ASTHMA Verified 07/03/18 13:07 tree nut Allergy Severe THROAT Verified 07/03/18 13:07 YOLANDA Review of Systems ROS Unobtainable ROS Unobtainable: unobtainable due to mental condition [facility] Medical History Medical History Arthritis (Acute) Bursitis (Acute) Depression (Acute) Hepatitis C (Acute) Hypertension (Acute) Kidney stones (Acute) Polysubstance abuse (Acute) Social History Social History Substance History: No History of Abuse Second Hand Smoke Exposure: No Smoking Status: Never smoker How Often Do You Have a Drink Containing Alcohol: Never Recent Travel in [place] within the Last 8 Weeks: No Recent Out of Country Travel within the Last 8 Weeks: No Immunization History Tetanus Immunization: Unsure Tetanus Immunization Year if Known: 2011 Exam Const General: cooperative, healthy appearing, comfortable, no acute distress and well developed Orientation: alert and awake HENNM Head: normal to inspection, normocephalic and atraumatic Mouth: other (Tongue is chisholm red. Mucous membranes are slightly dry. Lips are cracked.) Eyes Alignment and Position: alignment normal and position abnormal Conjunctivae: conjunctivae normal Sclera: sclerae normal EOM: EOM intact bilaterally Neck Neck: normal visual inspection and full ROM Chest Chest: normal inspection of the chest Resp Effort & Inspection: normal respiratory effort and able to speak in complete sentences Auscultation: clear to auscultation bilaterally Cardio Rate: tachycardic Rhythm: regular rhythm GI Inspection: normal to inspection Palpation: soft Rectal Exam: visual inspection normal, normal sphincter tone and other (Brown stool) Back/Spine/Pelvis Cervical Spine: cervical ROM normal Thoracic/Lumbar Spine: thoraco-lumbar ROM normal Skin General: no rashes or lesions noted, turgor normal and dry skin Neuro General: alert, awake, moves all extremities and CN's II-XI intact bilaterally Extrem General: normal to inspection and full ROM Psych Appearance: grossly normal Mental Status: mental status grossly normal Speech and Movement: speech and movement normal Mood: congruent mood Affect: normal affect Attitude: cooperative Thought Process: tangential Thought Content: normal Judgment: limited Procedures Hemaprompt Stool Procedural Steps Taken: specimen placed in appropriate test area and controls appropriately positive and negative Hemaprompt Stool Result: positive Course Consultations Consultation #1: Dr. Stahl Time: 04:33 Initial Documented Vital Signs Pulse Rate 117 H 07/08/18 00:02 Respiratory Rate 20 07/08/18 00:02 Blood Pressure 159/72 H 07/08/18 00:02 Pulse Oximetry 94 L 07/08/18 00:02 Last Documented Vital Signs Temperature 98.2 F 07/08/18 00:06 Pulse Rate 102 H 07/08/18 04:11 Respiratory Rate 16 07/08/18 04:11 Blood Pressure 133/71 07/08/18 04:11 Pulse Oximetry 96 07/08/18 04:11 Critical Care Time Critical Care Time: Yes Total Critical Care Time: 45 Attestation: Time to perform other separately billable procedures was not included in the critical care time. My time did not include minutes spent treating any other patients simultaneously or on activities that did not directly contribute to the patient's treatment. The services I provided to this patient were to treat and/or prevent clinically significant deterioration due to altered mental status, tachycardia I provided critical care services requiring my management, as noted below: Chart data review, documentation time, medication orders and management, vital sign assessments/reviewing monitor data, ordering and reviewing lab tests, ordering and interpreting/reviewing x-rays and diagnostic studies, care of the patient and discussion of the patient with the admitting physicians Medical Decision Making MDM Narrative Medical decision making narrative: This patient was brought to us from an assisted living facility/skilled nursing house because he is just not acting right per EMS. Onset was a couple of days ago. He does have a history of polysubstance abuse. He was found to be tachycardic on arrival. Septic workup has been initiated. Drug screen is also pending. The 2.5 g drop in hemoglobin since 07/03 prompted a rectal exam which shows Hemoccult positive stools. Protonix bolus and drip have been ordered. Initial lactic acid was elevated. It has normalized with fluid resuscitation. Medical Screen Exam Complete: Yes Emergency Medical Condition: Yes Differential Diagnosis Differential Diagnosis: Differential diagnosis of altered mental status includes but is not limited to infection, electrolyte abnormality, neurological event, intoxication, encephalitis, meningitis Lab Data Lab results reviewed: Yes I reviewed the patient's lab results. Result diagrams: 07/08/18 00:20 07/08/18 00:20 Lab Results 07/08/18 07/08/18 07/08/18 Range/Units 00:20 00:20 00:25 WBC 2.3 L (4.0-11.0) th/mm3 RBC 4.02 L (4.50-5.90) mil/mm3 Hgb 11.7 L (13.0-17.0) gm/dL Hct 34.6 L (39.0-51.0) % MCV 86.2 (80.0-100.0) fL MCH 29.2 (27.0-34.0) pg MCHC 33.9 (32.0-36.0) % RDW 15.4 (11.6-17.2) % Plt Count 95 L D (150-450) th/mm3 MPV 7.9 (7.0-11.0) fL Prelim Diff (Auto) Slide review pending Neut % (Auto) 70.5 H (16.0-70.0) % Lymph % (Auto) 10.3 (9.0-44.0) % Coles % (Auto) 15.5 H (0.0-8.0) % Eos % (Auto) 3.0 (0.0-4.0) % Baso % (Auto) 0.7 (0.0-2.0) % Neut # (Auto) 1.6 L (1.8-7.7) th/mm3 Lymph # (Auto) 0.2 L (1.0-4.8) th/mm3 Coles # (Auto) 0.4 (0.0-0.9) th/mm3 Eos # (Auto) 0.1 (0.0-0.4) th/mm3 Baso # (Auto) 0.0 (0.0-0.2) th/mm3 WBC Differential . Diff Scan Auto diff confirmed Differential Comment . Platelet Estimate Low L (Normal) Platelet Morphology Normal (Normal) Sodium 141 (136-145) meq/L Potassium 3.7 (3.5-5.1) meq/L Chloride 107 (98-107) meq/L Carbon Dioxide 24.5 (21.0-32.0) meq/L Anion Gap 10 (5-15) meq/L BUN 12 (7-18) mg/dL Creatinine 1.55 H (0.60-1.30) mg/dL Estimated GFR 46 L (>89) mL/min Random Glucose 102 (74-106) mg/dL Lactic Acid 3.2 H (0.4-2.0) mmol/L Calcium 8.2 L (8.5-10.1) mg/dL Magnesium 1.5 (1.5-2.5) mg/dL Total Bilirubin 0.8 (0.2-1.0) mg/dL AST 111 H (15-37) U/L ALT 62 (12-78) U/L Alkaline Phosphatase 156 H (45-117) U/L Total Protein 6.8 (6.4-8.2) g/dL Albumin 2.7 L (3.4-5.0) g/dL Urine Color (Yellw/Straw) Urine Clarity (Clear) Urine pH (5.0-8.5) Ur Specific [place] (1.002-1.035) Urine Protein (Neg-Trace) mg/dL Urine Glucose (UA) (Negative) mg/dL Urine Ketones (Negative) mg/dL Urine Occult Blood (Negative) Urine Nitrate (Negative) Urine Bilirubin (Negative) Urine Urobilinogen (Less than 2) mg/dL Ur Leukocyte Esterase (Negative) Urine RBC (0-3) /hpf Urine WBC (0-5) /hpf Urine Mucus (Occasional) /lpf Micro UA Comment Ur Microscopic Review Urine Culture Comments Urine Opiates Screen (Neg) Ur Barbiturates Screen (Neg) Ur Amphetamines Screen (Neg) U Benzodiazepines Scrn (Neg) Urine Cocaine Screen (Neg) U Cannabinoids Screen (Neg) 07/08/18 07/08/18 07/08/18 Range/Units 01:59 01:59 03:35 WBC (4.0-11.0) th/mm3 RBC (4.50-5.90) mil/mm3 Hgb (13.0-17.0) gm/dL Hct (39.0-51.0) % MCV (80.0-100.0) fL MCH (27.0-34.0) pg MCHC (32.0-36.0) % RDW (11.6-17.2) % Plt Count (150-450) th/mm3 MPV (7.0-11.0) fL Prelim Diff (Auto) Neut % (Auto) (16.0-70.0) % Lymph % (Auto) (9.0-44.0) % Coles % (Auto) (0.0-8.0) % Eos % (Auto) (0.0-4.0) % Baso % (Auto) (0.0-2.0) % Neut # (Auto) (1.8-7.7) th/mm3 Lymph # (Auto) (1.0-4.8) th/mm3 Coles # (Auto) (0.0-0.9) th/mm3 Eos # (Auto) (0.0-0.4) th/mm3 Baso # (Auto) (0.0-0.2) th/mm3 WBC Differential Diff Scan Differential Comment Platelet Estimate (Normal) Platelet Morphology (Normal) Sodium (136-145) meq/L Potassium (3.5-5.1) meq/L Chloride (98-107) meq/L Carbon Dioxide (21.0-32.0) meq/L Anion Gap (5-15) meq/L BUN (7-18) mg/dL Creatinine (0.60-1.30) mg/dL Estimated GFR (>89) mL/min Random Glucose (74-106) mg/dL Lactic Acid 1.5 (0.4-2.0) mmol/L Calcium (8.5-10.1) mg/dL Magnesium (1.5-2.5) mg/dL Total Bilirubin (0.2-1.0) mg/dL AST (15-37) U/L ALT (12-78) U/L Alkaline Phosphatase (45-117) U/L Total Protein (6.4-8.2) g/dL Albumin (3.4-5.0) g/dL Urine Color Yellow (Yellw/Straw) Urine Clarity Clear (Clear) Urine pH 6.0 (5.0-8.5) Ur Specific [place] 1.008 (1.002-1.035) Urine Protein Negative (Neg-Trace) mg/dL Urine Glucose (UA) Negative (Negative) mg/dL Urine Ketones Negative (Negative) mg/dL Urine Occult Blood Negative (Negative) Urine Nitrate Negative (Negative) Urine Bilirubin Negative (Negative) Urine Urobilinogen 4 or greater (Less than 2) mg/dL Ur Leukocyte Esterase Negative (Negative) Urine RBC 1 (0-3) /hpf Urine WBC Less than 1 (0-5) /hpf Urine Mucus Few H (Occasional) /lpf Micro UA Comment Culture not ind Ur Microscopic Review Not Reportable Urine Culture Comments Culture not ind Urine Opiates Screen Pos H (Neg) Ur Barbiturates Screen Neg (Neg) Ur Amphetamines Screen Neg (Neg) U Benzodiazepines Scrn Neg (Neg) Urine Cocaine Screen Neg (Neg) U Cannabinoids Screen Neg (Neg) Imaging Data Radiologist's impression: Chest X-Ray 07/08/18 00:06 CONCLUSION: Left basilar atelectasis suspected. Head CT 07/08/18 02:18 CONCLUSION: 1. Negative CT Head non contrast. . ECG Data EKG Prior to Arrival: No Attestation: I personally reviewed and interpreted this ECG as follows: (EKG shows a sinus rhythm with a rate of 113. No acute ischemic changes.) Discharge Plan Discharge Disposition Patient Disposition: ED Admit(ED Internal Use Only) Discharge Order Discharge Orders: ED Use Only Admit Order (Routine); Ordered 07/08/18 Ordered By: Aliza Dunbar Discharge Details Diagnosis: Altered mental status, GI bleed, Tachycardia, Acidosis, lactic Physicians Team ED Provider: Aliza Dunbar Primary Care Provider: UNKNOWN, Rxs /Orders / Referrals /Forms Prescriptions: No Action venlafaxine [Effexor XR] 75 mg Capsule,Extended Release 24hr 75 mg PO DAILY RF: 0 divalproex 250 mg Tablet,Delayed Release (Dr/Ec) 250 mg PO BID RF: 0 trazodone 50 mg Tablet 50 mg PO HS RF: 0 duloxetine [Cymbalta] 60 mg Capsule,Delayed Release(Dr/Ec) 60 mg PO DAILY RF: 0 lisinopril 30 mg Tablet 30 mg PO DAILY RF: 0 Discharge Interventions Interventions: Vital Signs Last Done: 07/08/18 04:11 Status ED Status: With Doctor
[2018-07-08 00:41] LABS: Baso % (Auto) 0.7 % (0.0-2.0); Eos # (Auto) 0.1 th/mm3 (0.0-0.4); Hematocrit 34.6 % (39.0-51.0); Hemoglobin 11.7 gm/dL (13.0-17.0); Lymph # (Auto) 0.2 th/mm3 (1.0-4.8); Lymph % (Auto) 10.3 % (9.0-44.0); Mean Corpuscular HGB Conc 33.9 % (32.0-36.0); Mean Corpuscular Hemoglobin 29.2 pg (27.0-34.0); Mean Corpuscular Volume 86.2 fL (80.0-100.0); Mean Platelet Volume 7.9 fL (7.0-11.0); Mono # (Auto) 0.4 th/mm3 (0.0-0.9); Mono % (Auto) 15.5 % (0.0-8.0); Neut # (Auto) 1.6 th/mm3 (1.8-7.7); Neut % (Auto) 70.5 % (16.0-70.0); Platelet Count 95 th/mm3 (150-450); Red Blood Count 4.02 mil/mm3 (4.50-5.90); Red Cell Distribution Width 15.4 % (11.6-17.2); White Blood Count 2.3 th/mm3 (4.0-11.0)
[2018-07-08 00:54] LABS: Alanine Aminotransferase 62 U/L (12-78); Albumin 2.7 g/dL (3.4-5.0); Anion Gap 10 meq/L (5-15); Aspartate Aminotransferase 111 U/L (15-37); Blood Urea Nitrogen 12 mg/dL (7-18); Calcium 8.2 mg/dL (8.5-10.1); Carbon Dioxide 24.5 meq/L (21.0-32.0); Chloride 107 meq/L (98-107); Glomerular Filtration Rate 46 mL/min (>89); Glucose,Random 102 mg/dL (74-106); Magnesium 1.5 mg/dL (1.5-2.5); Potassium 3.7 meq/L (3.5-5.1); Sodium 141 meq/L (136-145)
[2018-07-08 00:56] LABS: Alkaline Phosphatase 156 U/L (45-117); Total Protein 6.8 g/dL (6.4-8.2)
[2018-07-08 01:15] LABS: Platelet Morphology Normal (Normal)
--- NOTE | 2018-07-08 02:49 | CT ---
EXAM DATE: 07/08/2018 2:41 AM EST AGE/SEX: 63 years / Male INDICATIONS: Altered mental status; patient in speaking incoherently. CLINICAL DATA: This is the patient's initial encounter. Patient reports that signs and symptoms have been present for 2 days and indicates a pain score of Nonresponsive. MEDICAL/SURGICAL HISTORY: Renal calculi. Hypertension. Hepatitis C. Polysubstance abuse None. RADIATION DOSE: 56.35 CTDI (mGy) ; Combined studies COMPARISON: No prior exams available for comparison. TECHNIQUE: CT of the head without contrast. Using automated exposure control and adjustment of the mA and/or kV according to patient size, radiation dose was kept as low as reasonably achievable to ob tain optimal diagnostic quality images. DICOM format image data is available electronically for revi ew and comparison. FINDINGS: Cerebrum: The ventricles are normal for age. No evidence of midline shift, mass lesion, hemorrhage or acute infarction. No extraaxial fluid collections are seen. Posterior Fossa: The cerebellum and brainstem are intact. The 4th ventricle is midline. The cerebe llopontine angle is unremarkable. Extracranial: The visualized portion of the orbits is intact. Skull: The calvaria is intact. No evidence of skull fracture. CONCLUSION: 1. Negative CT Head non contrast. . Electronically signed by: Buddy Grace MD 07/08/2018 2:47 AM EST
[2018-07-08 03:09] LABS: Amphetamine Screen,Urine Neg (Neg); Barbiturate Screen,Urine Neg (Neg); Cannabinoid Screen,Urine Neg (Neg); Cocaine Screen,Urine Neg (Neg)
[2018-07-08 03:11] LABS: Bilirubin,Urine Negative (Negative); Clarity,Urine Clear (Clear); Color,Urine Yellow (Yellw/Straw); Glucose,Urine (UA) Negative (Negative); Leukocyte Esterase,Urine Negative (Negative); Mucus,Urine Few /lpf (Occasional); Nitrite,Urine Negative (Negative); Specific Gravity,Urine 1.008 (1.002-1.035); Urobilinogen,Urine 4 or Greater mg/dL (Less than 2)
[2018-07-08 03:12] LABS: Opiate Screen,Urine Pos (Neg)
[2018-07-08] MEDS ORDERED: Pantoprazole Inj 40 MG Vial IV.PUSH ONE (04:16)
[2018-07-08] MEDS ORDERED: Haloperidol Inj 5 MG/ML Ampul IV.PUSH PRN (04:35)
[2018-07-08] MEDS ORDERED: LORazepam 1 MG Tablet PO PRN (04:35)
[2018-07-08] MEDS ORDERED: Acetaminophen 325 MG Tablet PO PRN (04:36)
[2018-07-08] MEDS ORDERED: Bisacodyl 10 MG Supp RECTAL PRN (04:36)
[2018-07-08] MEDS ORDERED: Pantoprazole Inj 80 MG in Sodium Chlor 0.9% Inj 100 ML IV.CONT SCH (05:00)
[2018-07-08] MEDS: Sod Chloride 0.9% Inj 1,000 ML IV.CONT SCH ×2 (05:55→15:23)
[2018-07-08] MEDS: Senna/Docusate Sodium 8.6/50 MG Tablet PO SCH ×2 (09:41→21:30)
[2018-07-08] MEDS: Multivitamin/Minerals Therapeutic Tablet PO SCH (09:41)
[2018-07-08] MEDS: Folic Acid 1 MG Tablet PO SCH (09:41)
--- NOTE | 2018-07-08 09:54 | ECG ---
Date Performed: 07/08/2018 Time Performed: 01:20:54 PTAGE: 63 years EKG: SINUS TACHYCARDIA NONSPECIFIC ST & T-WAVE ABNORMALITY ABNORMAL RHYTHM ECG Since the PREVIOUS TRACING , no significant change noted PREVIOUS TRACIN07/03/2018 20.06 DOCTOR: Marcio Perez Interpretating Date/Time 07/08/2018 09:54:04
--- NOTE | 2018-07-08 12:09 | P.HP ---
History of Present Illness Primary Care Physician: UNKNOWN Chief Complaint: altered Mental status change History of Present Illness: 63-year-old male for past medical history of hypertension, hepatitis C was brought in the ED for altered mental status change evaluation. However on arrival and even during my exam, patient was unable to provide any coherent history and he was placed in four-point restraint. Therefore at this time history is obtained from ED report and chart review below: "This patient was brought to us from an assisted living facility/assisted house because he is just not acting right per EMS. Onset was a couple of days ago. He does have a history of polysubstance abuse. He was found to be tachycardic on arrival. Septic workup has been initiated. Drug screen is also pending. The 2.5 g drop in hemoglobin since 07/03 prompted a rectal exam which shows Hemoccult positive stools. Protonix bolus and drip have been ordered." Inpatient Certification: I certify that the inpatient services were ordered in accordance with Medicare regulations governing the order. This includes certification that hospital inpatient services are reasonable and necessary and in the case of services not specified as inpatient-only under 42 CFR 419.22(n), that they are appropriately provided as inpatient services in accordance to with the 2-midnight benchmark under 43 CFR 412.3(e) Estimated Total Length of Stay (Days): 2 Plans for Post Hospital Care: Not yet determined Review of Systems unobtainable due to mental status PMFSH - History History Provided By: Patient - Medical History Medical History: Medical History (Last Reviewed 07/08/18 @ 00:40 by Aliza Dunbar) Arthritis Bursitis Depression Hepatitis C Hypertension Kidney stones Polysubstance abuse - Tobacco History Second Hand Smoke Exposure: No Smoking Status: Never smoker - Alcohol History How Often Do You Have a Drink Containing Alcohol: Never - Substance Use History Substance History: No History of Abuse - Travel History Recent Travel in the [place] Within the Last 8 Weeks: No Recent Travel Out of the Country Within the Last 8 Weeks: No - Immunization History Tetanus Immunization: Unsure Tetanus Immunization Year if Known: 2011 Medications and Allergies Active Medications: Active Medications Acetaminophen (Tylenol) 650 mg PO Q4H PRN PRN Reason: Temp > 100.4 Al Hydroxide/Mg Hydroxide (Milk Of Magnesia Liq) 30 ml PO Q12H PRN PRN Reason: Mild Constipation Bisacodyl (Dulcolax Supp) 10 mg RECTAL DAILY PRN PRN Reason: SEVERE CONSITIPATION Flumazenil (Romazecon Inj) 0.2 mg IV.PUSH Q1M PRN PRN Reason: OVERSEDATION Folic Acid (Folic Acid) 1 mg PO DAILY [facility] Stop: 07/13/18 08:59 Last Admin: 07/08/18 09:41 Dose: Not Given Haloperidol Lactate (Haldol Inj) 1 mg IV.PUSH Q15M PRN PRN Reason: for severe agitation Sodium Chloride (Ns Inj) 1,000 mls @ 0 mls/hr IV.SIG .Q0M [facility] Last Infusion: 07/08/18 01:23 Dose: Infused Sodium Chloride (Ns Inj) 1,000 mls @ 0 mls/hr IV.SIG .Q0M OTILIA Last Infusion: 07/08/18 02:22 Dose: Infused Sodium Chloride (Ns Inj) 700 mls @ 0 mls/hr IV.SIG .Q0M OT[facility] Last Infusion: 07/08/18 02:22 Dose: Infused Sodium Chloride (Ns Inj) 1,000 mls @ 100 mls/hr IV.CONT .Q10H [facility] Last Infusion: 07/08/18 09:42 Dose: 100 mls/hr Pantoprazole Sodium 80 mg/ (Sodium Chloride) 100 mls @ 10 mls/hr IV.CONT Q10H [facility] Lactulose (Lactulose Liq) 30 ml PO DAILY PRN PRN Reason: SEVERE CONSITIPATION Lorazepam (Ativan) 1 mg PO Q4H PRN PRN Reason: for CIWA 8-10 Lorazepam (Ativan) 2 mg PO Q2H PRN PRN Reason: for CIWA 11-14 Lorazepam (Ativan Inj) 2 mg IV.PUSH Q2H PRN PRN Reason: for CIWA 11-14 Lorazepam (Ativan Inj) 2 mg IV.PUSH Q1H PRN PRN Reason: for CIWA 15-20 Lorazepam (Ativan Inj) 1 mg IV.PUSH Q4H PRN PRN Reason: for CIWA 8-10 Lorazepam (Ativan Inj) 2 mg IV.PUSH Q15M PRN PRN Reason: for CIWA > 20 Multivitamins/Minerals (Theragran-M) 1 tab PO DAILY [facility] Stop: 07/13/18 08:59 Last Admin: 07/08/18 09:41 Dose: Not Given Ondansetron HCl (Zofran Inj) 4 mg IV.PUSH Q6H PRN PRN Reason: NAUSEA OR VOMITING Senna/Docusate Sodium (Kayleigh-Colace) 1 tab PO BID [facility] Last Admin: 07/08/18 09:41 Dose: Not Given Sennosides (Senokot) 17.2 mg PO Q12H PRN PRN Reason: Moderate Constipation Sodium Chloride (Ns Flush) 2 ml IV.FLUSH BID [facility] Last Admin: 07/08/18 09:41 Dose: Not Given Sodium Chloride (Ns Flush) 2 ml IV.FLUSH PRN PRN PRN Reason: FLUSH AFTER USING IV ACCESS Thiamine HCl (Vitamin B1) 100 mg PO DAILY [facility] Last Admin: 07/08/18 09:41 Dose: Not Given Allergies Allergy/AdvReac Type Severity Reaction Status Date / Time chisholm Allergy Severe THROAT Verified 07/03/18 13:07 SWELLS grass pollen Allergy Severe ASTHMA Verified 07/03/18 13:07 house dust Allergy Severe ASTHMA Verified 07/03/18 13:07 tree nut Allergy Severe THROAT Verified 07/03/18 13:07 SWELLS Home Medications Medication Instructions Recorded Confirmed Type divalproex 250 mg PO BID 07/03/18 07/03/18 History duloxetine [Cymbalta] 60 mg PO DAILY 07/03/18 07/03/18 History lisinopril 30 mg PO DAILY 07/03/18 07/03/18 History trazodone 50 mg PO HS 07/03/18 07/03/18 History venlafaxine [Effexor XR] 75 mg PO DAILY 07/03/18 07/03/18 History Exam Vital signs: Vital Signs 07/08/18 00:02 07/08/18 00:06 07/08/18 04:11 Temperature 98.2 F Pulse Rate 117 H 102 H Respiratory Rate 20 16 Blood Pressure 159/72 H 133/71 Pulse Oximetry 94 L 96 07/08/18 08:00 07/08/18 11:35 Temperature 97.6 F Pulse Rate 110 H 103 H Respiratory Rate 16 Blood Pressure 159/90 H Pulse Oximetry 95 Intake & Output 07/07/18 07/08/18 07/08/18 18:59 06:59 18:59 Intake Total 2700 / 2700 443 / 443 Balance 0 / 2700 443 / 443 Weight 93.8 kg Intake: IV 2700 / 2700 443 / 443 Protonix Inj 80 MG In NS Inj 43 / 43 100 ML @ 10 mls/hr IV.CONT CONT [facility] Rx#:[id number] NS Inj 1,000 ML @ 100 mls/hr IV 400 / 400 .CONT .Q10H [facility] Rx#:[id number] NS Inj 700 ML @ Wide Open IV. 2700 / 2700 SIG .Q0M OTILIA Rx#:[id number] Narrative: GENERAL: confused with four-point restraints in place SKIN: Warm and dry. HEAD: Atraumatic. Normocephalic. EYES: Pupils equal and round. No scleral icterus. No injection or drainage. ENT: No nasal bleeding or discharge. Mucous membranes pink and moist. NECK: Trachea midline. No JVD. CARDIOVASCULAR: Regular rate and rhythm. RESPIRATORY: No accessory muscle use. Clear to auscultation. Breath sounds equal bilaterally. GASTROINTESTINAL: Abdomen soft, non-tender, nondistended. Hepatic and splenic margins not palpable. MUSCULOSKELETAL: Extremities without clubbing, cyanosis, or edema. No obvious deformities. NEUROLOGICAL: Awake and alert. No obvious cranial nerve deficits. Motor grossly within normal limits. Five out of 5 muscle strength in the arms and legs. Inaudible speech PSYCHIATRIC: mood and affect and appropriate; insight and judgment abnormal. Results - Labs CBC & Chem 7: 07/08/18 00:20 07/08/18 00:20 Labs: Laboratory Results - last 24 hr 07/08/18 07/08/18 07/08/18 00:20 00:20 00:25 WBC 2.3 L RBC 4.02 L Hgb 11.7 L Hct 34.6 L MCV 86.2 MCH 29.2 MCHC 33.9 RDW 15.4 Plt Count 95 L D MPV 7.9 Prelim Diff (Auto) Slide review pending Neut % (Auto) 70.5 H Lymph % (Auto) 10.3 [place] % (Auto) 15.5 H Eos % (Auto) 3.0 Baso % (Auto) 0.7 Neut # (Auto) 1.6 L Lymph # (Auto) 0.2 L [place] # (Auto) 0.4 Eos # (Auto) 0.1 Baso # (Auto) 0.0 WBC Differential . Diff Scan Auto diff confirmed Differential Comment . Platelet Estimate Low L Platelet Morphology Normal Sodium 141 Potassium 3.7 Chloride 107 Carbon Dioxide 24.5 Anion Gap 10 BUN 12 Creatinine 1.55 H Estimated GFR 46 L Random Glucose 102 Lactic Acid 3.2 H Calcium 8.2 L Magnesium 1.5 Total Bilirubin 0.8 AST 111 H ALT 62 Alkaline Phosphatase 156 H Total Protein 6.8 Albumin 2.7 L Urine Color Urine Clarity Urine pH Ur Specific [place] Urine Protein Urine Glucose (UA) Urine Ketones Urine Occult Blood Urine Nitrate Urine Bilirubin Urine Urobilinogen Ur Leukocyte Esterase Urine RBC Urine WBC Urine Mucus Micro UA Comment Ur Microscopic Review Urine Culture Comments Urine Opiates Screen Ur Barbiturates Screen Ur Amphetamines Screen U Benzodiazepines Scrn Urine Cocaine Screen U Cannabinoids Screen 07/08/18 07/08/18 07/08/18 01:59 01:59 03:35 WBC RBC Hgb Hct MCV MCH MCHC RDW Plt Count MPV Prelim Diff (Auto) Neut % (Auto) Lymph % (Auto) [place] % (Auto) Eos % (Auto) Baso % (Auto) Neut # (Auto) Lymph # (Auto) [place] # (Auto) Eos # (Auto) Baso # (Auto) WBC Differential Diff Scan Differential Comment Platelet Estimate Platelet Morphology Sodium Potassium Chloride Carbon Dioxide Anion Gap BUN Creatinine Estimated GFR Random Glucose Lactic Acid 1.5 Calcium Magnesium Total Bilirubin AST ALT Alkaline Phosphatase Total Protein Albumin Urine Color Yellow Urine Clarity Clear Urine pH 6.0 Ur Specific [place] 1.008 Urine Protein Negative Urine Glucose (UA) Negative Urine Ketones Negative Urine Occult Blood Negative Urine Nitrate Negative Urine Bilirubin Negative Urine Urobilinogen 4 or greater Ur Leukocyte Esterase Negative Urine RBC 1 Urine WBC Less than 1 Urine Mucus Few H Micro UA Comment Culture not ind Ur Microscopic Review Not Reportable Urine Culture Comments Culture not ind Urine Opiates Screen Pos H Ur Barbiturates Screen Neg Ur Amphetamines Screen Neg U Benzodiazepines Scrn Neg Urine Cocaine Screen Neg U Cannabinoids Screen Neg - Imaging Impressions Chest X-Ray 07/08/18 00:06 CONCLUSION: Left basilar atelectasis suspected. Head CT 07/08/18 02:18 CONCLUSION: 1. Negative CT Head non contrast. . Caprini VTE Risk Assessment Caprini VTE Risk Assessment: Moderate/High Risk (score >= 2) VTE Pharmacological Exception Reason: Active bleeding Caprini Risk Assessment Model: Point Value = 1 Point Value = 2 Point Value = 3 Point Value = 5 Age 41-60 Minor surgery BMI > 25 kg/m2 Swollen legs Varicose veins or History of unexplained or recurrent spontaneous Oral contraceptives or hormone replacement Sepsis (< 1 month) Serious lung disease, including pneumonia (< 1 month) Abnormal pulmonary function Acute myocardial infarction Congestive heart failure (< 1 month) History of inflammatory bowel disease Medical patient at bed rest Age 61-74 Arthroscopic surgery Major open surgery (> 45 min) Laparoscopic surgery (> 45 min) Malignancy Confined to bed (> 72 hours) Immobilizing plaster cast Central venous access Age >= 75 History of VTE Family history of VTE Factor V Leiden Prothrombin [id number] Lupus anticoagulant Anticardiolipin antibodies Elevated serum homocysteine Heparin-induced thrombocytopenia Other congenital or acquired thrombophilia Stroke (< 1 month) Elective arthroplasty Hip, pelvis, or leg fracture Acute spinal cord injury (< 1 month) Prophylaxis Regimen: Total Risk Factor Score Risk Level Prophylaxis Regimen 0-1 Low Early ambulation 2 Moderate Order ONE of the following: *Sequential Compression Device (SCD) *Heparin 5000 units SQ BID 3-4 Higher Order ONE of the following medications: *Heparin 5000 units SQ TID *Enoxaparin/Lovenox 40 mg SQ daily (WT < 150 kg, CrCl > 30 mL/min) *Enoxaparin/Lovenox 30 mg SQ daily (WT < 150 kg, CrCl > 10-29 mL/min) *Enoxaparin/Lovenox 30 mg SQ BID (WT < 150 kg, CrCl > 30 mL/min) AND/OR *Sequential Compression Device (SCD) 5 or more Highest Order ONE of the following medications: *Heparin 5000 units SQ TID (Preferred with Epidurals) *Enoxaparin/Lovenox 40 mg SQ daily (WT < 150 kg, CrCl > 30 mL/min) *Enoxaparin/Lovenox 30 mg SQ daily (WT < 150 kg, CrCl > 10-29 mL/min) *Enoxaparin/Lovenox 30 mg SQ BID (WT < 150 kg, CrCl > 30 mL/min) AND *Sequential Compression Device (SCD) Assessment and Plan - Plan 63-year-old man with Metabolic/toxic encephalopathy Head CT noted and reviewed by me without any intracranial abnormality Secondary to patient history of hepatitis C, will check ammonia level UDS positive for opioid Consider lumbar puncture Avoid all [employer] depressant medications Severe sepsis on presentation:HR>90, WBC<4,000 and LR>2.0; however source unknown Start patient on prophylactic treatment for encephalitis more likely than meningitis Will start acyclovir 10 mg/kg IV q. 8-hour Consider LP Heme positive stool GI has been consulted Currently on PPI drip Continue serial monitoring of H&H History of hepatitis C Chronic, continue to monitor Consult speech therapy for swallow eval and start diet accordingly DVT prophylaxis: Chemical prophylaxis is contraindicated GI prophylaxis: PPI
--- NOTE | 2018-07-08 14:04 | P.CONGI ---
History of Present Illness Consult date: 07/08/18 Consult reason: GI bleed Chief complaint: GI bleed, tachycardia, AMS History of Present Illness: This is a 63-year-old male who was admitted back to the hospital on 07/07/2018 with altered mental status according to the record currently patient continues to have altered mental status randomly does attempt to answer some of the simple questions. According to the record he has been in assisted living and has a history of polysubstance abuse as well as hepatitis C. This admission patient was noted to have heme positive stools and a decrease in his hemoglobin of 2.5 g since 07/03/2018. Patient denies any rectal bleeding or abdominal pain nausea or vomiting but does appear to be a poor historian and randomly begins to discuss other issues that have nothing to do with his hospital stay. He does realize he is in the hospital. Current labs noted hemoglobin 11.7, platelet count 95, WBC count 2.3, bilirubin 0.8, AST 111, ALT 62, alkaline phosphatase 156,. Patient denies any diarrhea or constipation and according to the staff he has not had a bowel movement since admission to the floor. Gastroenterology has been consulted to assist with his symptom management and plan of care. <Galina Hannon - Last Filed: 07/08/18 13:55> Chief complaint: GI bleed, tachycardia, AMS <Bhavya Lemos - Last Filed: 07/09/18 05:40> Review of Systems All other systems reviewed negative except as stated in HPI <Galina Hannon - Last Filed: 07/08/18 13:55> PMFSH - History History Provided By: Patient - Medical History Medical History: Medical History (Last Reviewed 07/08/18 @ 00:40 by Aliza Dunbar) Arthritis Bursitis Depression Hepatitis C Hypertension Kidney stones Polysubstance abuse - Tobacco History Second Hand Smoke Exposure: No Smoking Status: Never smoker - Alcohol History How Often Do You Have a Drink Containing Alcohol: Never - Substance Use History Substance History: No History of Abuse - Travel History Recent Travel in the [facility] Within the Last 8 Weeks: No Recent Travel Out of the Country Within the Last 8 Weeks: No - Immunization History Tetanus Immunization: Unsure Tetanus Immunization Year if Known: 2011 <Galina Hannon - Last Filed: 07/08/18 13:55> - Medical History Medical History: Medical History (Last Reviewed 07/08/18 @ 00:40 by Aliza Dunbar) Arthritis Bursitis Depression Hepatitis C Hypertension Kidney stones Polysubstance abuse <Bhavya Lemos - Last Filed: 07/09/18 05:40> Medications and Allergies Active Medications: Active Medications Acetaminophen (Tylenol) 650 mg PO Q4H PRN PRN Reason: Temp > 100.4 Al Hydroxide/Mg Hydroxide (Milk Of Magnesia Liq) 30 ml PO Q12H PRN PRN Reason: Mild Constipation Bisacodyl (Dulcolax Supp) 10 mg RECTAL DAILY PRN PRN Reason: SEVERE CONSITIPATION Flumazenil (Romazecon Inj) 0.2 mg IV.PUSH Q1M PRN PRN Reason: OVERSEDATION Folic Acid (Folic Acid) 1 mg PO DAILY [facility] Stop: 07/13/18 08:59 Last Admin: 07/08/18 09:41 Dose: Not Given Haloperidol Lactate (Haldol Inj) 1 mg IV.PUSH Q15M PRN PRN Reason: for severe agitation Sodium Chloride (Ns Inj) 1,000 mls @ 0 mls/hr IV.SIG .Q0M [facility] Last Infusion: 07/08/18 01:23 Dose: Infused Sodium Chloride (Ns Inj) 1,000 mls @ 0 mls/hr IV.SIG .Q0M [facility] Last Infusion: 07/08/18 02:22 Dose: Infused Sodium Chloride (Ns Inj) 700 mls @ 0 mls/hr IV.SIG .Q0M [facility] Last Infusion: 07/08/18 02:22 Dose: Infused Sodium Chloride (Ns Inj) 1,000 mls @ 100 mls/hr IV.CONT .Q10H [facility] Last Infusion: 07/08/18 09:42 Dose: 100 mls/hr Pantoprazole Sodium 80 mg/ (Sodium Chloride) 100 mls @ 10 mls/hr IV.CONT Q10H [facility] Acyclovir Sodium 900 mg/ (Sodium Chloride) 168 mls @ 168 mls/hr IV.SIG Q8H [facility] Lactulose (Lactulose Liq) 30 ml PO DAILY PRN PRN Reason: SEVERE CONSITIPATION Lorazepam (Ativan) 1 mg PO Q4H PRN PRN Reason: for CIWA 8-10 Lorazepam (Ativan) 2 mg PO Q2H PRN PRN Reason: for CIWA 11-14 Lorazepam (Ativan Inj) 2 mg IV.PUSH Q2H PRN PRN Reason: for CIWA 11-14 Lorazepam (Ativan Inj) 2 mg IV.PUSH Q1H PRN PRN Reason: for CIWA 15-20 Lorazepam (Ativan Inj) 1 mg IV.PUSH Q4H PRN PRN Reason: for CIWA 8-10 Lorazepam (Ativan Inj) 2 mg IV.PUSH Q15M PRN PRN Reason: for CIWA > 20 Multivitamins/Minerals (Theragran-M) 1 tab PO DAILY [facility] Stop: 07/13/18 08:59 Last Admin: 07/08/18 09:41 Dose: Not Given Ondansetron HCl (Zofran Inj) 4 mg IV.PUSH Q6H PRN PRN Reason: NAUSEA OR VOMITING Senna/Docusate Sodium (Kayleigh-Colace) 1 tab PO BID [facility] Last Admin: 07/08/18 09:41 Dose: Not Given Sennosides (Senokot) 17.2 mg PO Q12H PRN PRN Reason: Moderate Constipation Sodium Chloride (Ns Flush) 2 ml IV.FLUSH BID [facility] Last Admin: 07/08/18 09:41 Dose: Not Given Sodium Chloride (Ns Flush) 2 ml IV.FLUSH PRN PRN PRN Reason: FLUSH AFTER USING IV ACCESS Thiamine HCl (Vitamin B1) 100 mg PO DAILY [facility] Last Admin: 07/08/18 09:41 Dose: Not Given <Galina Hannon - Last Filed: 07/08/18 13:55> Active Medications: Active Medications Acetaminophen (Tylenol) 650 mg PO Q4H PRN PRN Reason: Temp > 100.4 Al Hydroxide/Mg Hydroxide (Milk Of Magnesia Liq) 30 ml PO Q12H PRN PRN Reason: Mild Constipation Bisacodyl (Dulcolax Supp) 10 mg RECTAL DAILY PRN PRN Reason: SEVERE CONSITIPATION Enalaprilat (Vasotec Inj) 2.5 mg IV.PUSH Q6H PRN PRN Reason: SBP>160, DBP>90 Flumazenil (Romazecon Inj) 0.2 mg IV.PUSH Q1M PRN PRN Reason: OVERSEDATION Folic Acid (Folic Acid) 1 mg PO DAILY [facility] Stop: 07/13/18 08:59 Last Admin: 07/08/18 09:41 Dose: Not Given Haloperidol Lactate (Haldol Inj) 1 mg IV.PUSH Q15M PRN PRN Reason: for severe agitation Hydralazine HCl (Apresoline) 25 mg PO TID [facility] Sodium Chloride (Ns Inj) 1,000 mls @ 0 mls/hr IV.SIG .Q0M [facility] Last Infusion: 07/08/18 01:23 Dose: Infused Sodium Chloride (Ns Inj) 1,000 mls @ 0 mls/hr IV.SIG .Q0M [facility] Last Infusion: 07/08/18 02:22 Dose: Infused Sodium Chloride (Ns Inj) 700 mls @ 0 mls/hr IV.SIG .Q0M [facility] Last Infusion: 07/08/18 02:22 Dose: Infused Sodium Chloride (Ns Inj) 1,000 mls @ 100 mls/hr IV.CONT .Q10H [facility] Last Admin: 07/08/18 15:23 Dose: 100 mls/hr Pantoprazole Sodium 80 mg/ (Sodium Chloride) 100 mls @ 10 mls/hr IV.CONT Q10H [facility] Last Admin: 07/08/18 15:23 Dose: 10 mls/hr Acyclovir Sodium 900 mg/ (Sodium Chloride) 168 mls @ 168 mls/hr IV.SIG Q8H [facility] Last Admin: 07/08/18 15:16 Dose: 168 mls/hr Lactulose (Lactulose Liq) 30 ml PO DAILY PRN PRN Reason: SEVERE CONSITIPATION Lorazepam (Ativan) 1 mg PO Q4H PRN PRN Reason: for CIWA 8-10 Lorazepam (Ativan) 2 mg PO Q2H PRN PRN Reason: for CIWA 11-14 Lorazepam (Ativan Inj) 2 mg IV.PUSH Q2H PRN PRN Reason: for CIWA 11-14 Lorazepam (Ativan Inj) 2 mg IV.PUSH Q1H PRN PRN Reason: for CIWA 15-20 Lorazepam (Ativan Inj) 1 mg IV.PUSH Q4H PRN PRN Reason: for CIWA 8-10 Lorazepam (Ativan Inj) 2 mg IV.PUSH Q15M PRN PRN Reason: for CIWA > 20 Multivitamins/Minerals (Theragran-M) 1 tab PO DAILY [facility] Stop: 07/13/18 08:59 Last Admin: 07/08/18 09:41 Dose: Not Given Ondansetron HCl (Zofran Inj) 4 mg IV.PUSH Q6H PRN PRN Reason: NAUSEA OR VOMITING Senna/Docusate Sodium (Kayleigh-Colace) 1 tab PO BID [facility] Last Admin: 07/08/18 09:41 Dose: Not Given Sennosides (Senokot) 17.2 mg PO Q12H PRN PRN Reason: Moderate Constipation Sodium Chloride (Ns Flush) 2 ml IV.FLUSH BID [facility] Last Admin: 07/08/18 09:41 Dose: Not Given Sodium Chloride (Ns Flush) 2 ml IV.FLUSH PRN PRN PRN Reason: FLUSH AFTER USING IV ACCESS Thiamine HCl (Vitamin B1) 100 mg PO DAILY [facility] Last Admin: 07/08/18 09:41 Dose: Not Given <Bhavya Lemos - Last Filed: 07/09/18 05:40> Allergies Allergy/AdvReac Type Severity Reaction Status Date / Time chisholm Allergy Severe THROAT Verified 07/03/18 13:07 SWELLS grass pollen Allergy Severe ASTHMA Verified 07/03/18 13:07 house dust Allergy Severe ASTHMA Verified 07/03/18 13:07 tree nut Allergy Severe THROAT Verified 07/03/18 13:07 SWELLS Home Medications Medication Instructions Recorded Confirmed Type divalproex 250 mg PO BID 07/03/18 07/03/18 History duloxetine [Cymbalta] 60 mg PO DAILY 07/03/18 07/03/18 History lisinopril 30 mg PO DAILY 07/03/18 07/03/18 History trazodone 50 mg PO HS 07/03/18 07/03/18 History venlafaxine [Effexor XR] 75 mg PO DAILY 07/03/18 07/03/18 History bupropion HCl 150 mg PO DAILY 07/08/18 07/08/18 History quetiapine [Seroquel] 400 mg PO HS 07/08/18 07/08/18 History Exam Vital signs: Vital Signs 07/08/18 00:02 07/08/18 00:06 07/08/18 04:11 Temperature 98.2 F Pulse Rate 117 H 102 H Respiratory Rate 20 16 Blood Pressure 159/72 H 133/71 Pulse Oximetry 94 L 96 07/08/18 08:00 07/08/18 11:35 07/08/18 12:02 Temperature 97.6 F Pulse Rate 110 H 103 H Respiratory Rate 16 Blood Pressure 159/90 H Pulse Oximetry 95 95 Intake & Output 07/07/18 07/08/18 07/08/18 18:59 06:59 18:59 Intake Total 2700 / 2700 443 / 443 Balance 2700 / 2700 443 / 443 Weight 93.8 kg 90.6 kg Intake: IV 2700 / 2700 443 / 443 Protonix Inj 80 MG In NS Inj 43 / 43 100 ML @ 10 mls/hr IV.CONT CONT [facility] Rx#:[id number] NS Inj 1,000 ML @ 100 mls/hr IV 400 / 400 .CONT .Q10H [facility] Rx#:[id number] NS Inj 700 ML @ Wide Open IV. 2700 / 2700 SIG .Q0M [facility] Rx#:[id number] - Constitutional moderate distress, disheveled, agitated (Soft restraints and close monitoring per staff) - Routine HEENT Exam Head: Present: normocephalic ENT: Present: mucous membranes moist - Routine Neck Exam Present: supple - Routine Respiratory Exam Present: CTA bilaterally - Routine Cardiovascular Exam Present: S1 (Regular), S2 - Routine Abdominal Exam Present: soft, distended (Round, possible mild distention, taut, no abdominal pain to light palpation) - Routine Skin Exam Present: pallor - Routine Neurological Exam Present: alert (Awake random conversation some of it understandable) <Galina Hannon - Last Filed: 07/08/18 13:55> Vital signs: Vital Signs 07/08/18 00:02 07/08/18 00:06 07/08/18 04:11 Temperature 98.2 F Pulse Rate 117 H 102 H Respiratory Rate 20 16 Blood Pressure 159/72 H 133/71 Pulse Oximetry 94 L 96 07/08/18 08:00 07/08/18 11:35 07/08/18 12:00 Temperature 97.6 F 97.9 F Pulse Rate 110 H 103 H 107 H Respiratory Rate 16 18 Blood Pressure 159/90 H 170/98 H Pulse Oximetry 95 95 07/08/18 12:02 Temperature Pulse Rate Respiratory Rate Blood Pressure Pulse Oximetry 95 Intake & Output 07/07/18 07/08/18 07/08/18 18:59 06:59 18:59 Intake Total 2700 / 2700 1100 / 1100 Balance 2700 / 2700 1100 / 1100 Weight 93.8 kg 90.6 kg Intake: IV 2700 / 2700 1100 / 1100 Protonix Inj 80 MG In NS Inj 100 / 100 100 ML @ 10 mls/hr IV.CONT CONT [facility] Rx#:[id number] NS Inj 1,000 ML @ 100 mls/hr IV 1000 / 1000 .CONT .Q10H [facility] Rx#:[id number] NS Inj 700 ML @ Wide Open IV. 2700 / 2700 SIG .Q0M [facility] Rx#:[id number] <Bhavya Lemos - Last Filed: 07/09/18 05:40> Results - Labs CBC & Chem 7: 07/08/18 00:20 07/08/18 00:20 Labs: Laboratory Results - last 24 hr 07/08/18 07/08/18 07/08/18 00:20 00:20 00:25 WBC 2.3 L RBC 4.02 L Hgb 11.7 L Hct 34.6 L MCV 86.2 MCH 29.2 MCHC 33.9 RDW 15.4 Plt Count 95 L D MPV 7.9 Prelim Diff (Auto) Slide review pending Neut % (Auto) 70.5 H Lymph % (Auto) 10.3 [place] % (Auto) 15.5 H Eos % (Auto) 3.0 Baso % (Auto) 0.7 Neut # (Auto) 1.6 L Lymph # (Auto) 0.2 L [place] # (Auto) 0.4 Eos # (Auto) 0.1 Baso # (Auto) 0.0 WBC Differential . Diff Scan Auto diff confirmed Differential Comment . Platelet Estimate Low L Platelet Morphology Normal Sodium 141 Potassium 3.7 Chloride 107 Carbon Dioxide 24.5 Anion Gap 10 BUN 12 Creatinine 1.55 H Estimated GFR 46 L POC Glucose Random Glucose 102 Lactic Acid 3.2 H Calcium 8.2 L Magnesium 1.5 Total Bilirubin 0.8 AST 111 H ALT 62 Alkaline Phosphatase 156 H Total Protein 6.8 Albumin 2.7 L Urine Color Urine Clarity Urine pH Ur Specific [place] Urine Protein Urine Glucose (UA) Urine Ketones Urine Occult Blood Urine Nitrate Urine Bilirubin Urine Urobilinogen Ur Leukocyte Esterase Urine RBC Urine WBC Urine Mucus Micro UA Comment Ur Microscopic Review Urine Culture Comments Urine Opiates Screen Ur Barbiturates Screen Ur Amphetamines Screen U Benzodiazepines Scrn Urine Cocaine Screen U Cannabinoids Screen 07/08/18 07/08/18 07/08/18 01:59 01:59 03:35 WBC RBC Hgb Hct MCV MCH MCHC RDW Plt Count MPV Prelim Diff (Auto) Neut % (Auto) Lymph % (Auto) [place] % (Auto) Eos % (Auto) Baso % (Auto) Neut # (Auto) Lymph # (Auto) [place] # (Auto) Eos # (Auto) Baso # (Auto) WBC Differential Diff Scan Differential Comment Platelet Estimate Platelet Morphology Sodium Potassium Chloride Carbon Dioxide Anion Gap BUN Creatinine Estimated GFR POC Glucose Random Glucose Lactic Acid 1.5 Calcium Magnesium Total Bilirubin AST ALT Alkaline Phosphatase Total Protein Albumin Urine Color Yellow Urine Clarity Clear Urine pH 6.0 Ur Specific [place] 1.008 Urine Protein Negative Urine Glucose (UA) Negative Urine Ketones Negative Urine Occult Blood Negative Urine Nitrate Negative Urine Bilirubin Negative Urine Urobilinogen 4 or greater Ur Leukocyte Esterase Negative Urine RBC 1 Urine WBC Less than 1 Urine Mucus Few H Micro UA Comment Culture not ind Ur Microscopic Review Not Reportable Urine Culture Comments Culture not ind Urine Opiates Screen Pos H Ur Barbiturates Screen Neg Ur Amphetamines Screen Neg U Benzodiazepines Scrn Neg Urine Cocaine Screen Neg U Cannabinoids Screen Neg 07/08/18 13:24 WBC RBC Hgb Hct MCV MCH MCHC RDW Plt Count MPV Prelim Diff (Auto) Neut % (Auto) Lymph % (Auto) [place] % (Auto) Eos % (Auto) Baso % (Auto) Neut # (Auto) Lymph # (Auto) [place] # (Auto) Eos # (Auto) Baso # (Auto) WBC Differential Diff Scan Differential Comment Platelet Estimate Platelet Morphology Sodium Potassium Chloride Carbon Dioxide Anion Gap BUN Creatinine Estimated GFR POC Glucose 209 H Random Glucose Lactic Acid Calcium Magnesium Total Bilirubin AST ALT Alkaline Phosphatase Total Protein Albumin Urine Color Urine Clarity Urine pH Ur Specific [place] Urine Protein Urine Glucose (UA) Urine Ketones Urine Occult Blood Urine Nitrate Urine Bilirubin Urine Urobilinogen Ur Leukocyte Esterase Urine RBC Urine WBC Urine Mucus Micro UA Comment Ur Microscopic Review Urine Culture Comments Urine Opiates Screen Ur Barbiturates Screen Ur Amphetamines Screen U Benzodiazepines Scrn Urine Cocaine Screen U Cannabinoids Screen - Imaging Impressions Chest X-Ray 07/08/18 00:06 CONCLUSION: Left basilar atelectasis suspected. Head CT 07/08/18 02:18 CONCLUSION: 1. Negative CT Head non contrast. . <Galina Hannon - Last Filed: 07/08/18 13:55> - Labs CBC & Chem 7: 07/08/18 00:20 07/08/18 00:20 Labs: Laboratory Results - last 24 hr 07/08/18 07/08/18 07/08/18 00:20 00:20 00:25 WBC 2.3 L RBC 4.02 L Hgb 11.7 L Hct 34.6 L MCV 86.2 MCH 29.2 MCHC 33.9 RDW 15.4 Plt Count 95 L D MPV 7.9 Prelim Diff (Auto) Slide review pending Neut % (Auto) 70.5 H Lymph % (Auto) 10.3 [place] % (Auto) 15.5 H Eos % (Auto) 3.0 Baso % (Auto) 0.7 Neut # (Auto) 1.6 L Lymph # (Auto) 0.2 L [place] # (Auto) 0.4 Eos # (Auto) 0.1 Baso # (Auto) 0.0 WBC Differential . Diff Scan Auto diff confirmed Differential Comment . Platelet Estimate Low L Platelet Morphology Normal Sodium 141 Potassium 3.7 Chloride 107 Carbon Dioxide 24.5 Anion Gap 10 BUN 12 Creatinine 1.55 H Estimated GFR 46 L POC Glucose Random Glucose 102 Lactic Acid 3.2 H Calcium 8.2 L Magnesium 1.5 Total Bilirubin 0.8 AST 111 H ALT 62 Alkaline Phosphatase 156 H Total Protein 6.8 Albumin 2.7 L Urine Color Urine Clarity Urine pH Ur Specific [place] Urine Protein Urine Glucose (UA) Urine Ketones Urine Occult Blood Urine Nitrate Urine Bilirubin Urine Urobilinogen Ur Leukocyte Esterase Urine RBC Urine WBC Urine Mucus Micro UA Comment Ur Microscopic Review Urine Culture Comments Urine Opiates Screen Ur Barbiturates Screen Ur Amphetamines Screen U Benzodiazepines Scrn Urine Cocaine Screen U Cannabinoids Screen 07/08/18 07/08/18 07/08/18 01:59 01:59 03:35 WBC RBC Hgb Hct MCV MCH MCHC RDW Plt Count MPV Prelim Diff (Auto) Neut % (Auto) Lymph % (Auto) [place] % (Auto) Eos % (Auto) Baso % (Auto) Neut # (Auto) Lymph # (Auto) [place] # (Auto) Eos # (Auto) Baso # (Auto) WBC Differential Diff Scan Differential Comment Platelet Estimate Platelet Morphology Sodium Potassium Chloride Carbon Dioxide Anion Gap BUN Creatinine Estimated GFR POC Glucose Random Glucose Lactic Acid 1.5 Calcium Magnesium Total Bilirubin AST ALT Alkaline Phosphatase Total Protein Albumin Urine Color Yellow Urine Clarity Clear Urine pH 6.0 Ur Specific [place] 1.008 Urine Protein Negative Urine Glucose (UA) Negative Urine Ketones Negative Urine Occult Blood Negative Urine Nitrate Negative Urine Bilirubin Negative Urine Urobilinogen 4 or greater Ur Leukocyte Esterase Negative Urine RBC 1 Urine WBC Less than 1 Urine Mucus Few H Micro UA Comment Culture not ind Ur Microscopic Review Not Reportable Urine Culture Comments Culture not ind Urine Opiates Screen Pos H Ur Barbiturates Screen Neg Ur Amphetamines Screen Neg U Benzodiazepines Scrn Neg Urine Cocaine Screen Neg U Cannabinoids Screen Neg 07/08/18 13:24 WBC RBC Hgb Hct MCV MCH MCHC RDW Plt Count MPV Prelim Diff (Auto) Neut % (Auto) Lymph % (Auto) [place] % (Auto) Eos % (Auto) Baso % (Auto) Neut # (Auto) Lymph # (Auto) [place] # (Auto) Eos # (Auto) Baso # (Auto) WBC Differential Diff Scan Differential Comment Platelet Estimate Platelet Morphology Sodium Potassium Chloride Carbon Dioxide Anion Gap BUN Creatinine Estimated GFR POC Glucose 209 H Random Glucose Lactic Acid Calcium Magnesium Total Bilirubin AST ALT Alkaline Phosphatase Total Protein Albumin Urine Color Urine Clarity Urine pH Ur Specific [place] Urine Protein Urine Glucose (UA) Urine Ketones Urine Occult Blood Urine Nitrate Urine Bilirubin Urine Urobilinogen Ur Leukocyte Esterase Urine RBC Urine WBC Urine Mucus Micro UA Comment Ur Microscopic Review Urine Culture Comments Urine Opiates Screen Ur Barbiturates Screen Ur Amphetamines Screen U Benzodiazepines Scrn Urine Cocaine Screen U Cannabinoids Screen - Imaging Impressions Chest X-Ray 07/08/18 00:06 CONCLUSION: Left basilar atelectasis suspected. Head CT 07/08/18 02:18 CONCLUSION: 1. Negative CT Head non contrast. . <Bhavya Lemos - Last Filed: 07/09/18 05:40> Assessment and Plan - Plan 63-year-old male who was admitted back to the hospital on 07/07/2018 with altered mental status according to the record currently patient continues to have altered mental status randomly does attempt to answer some of the simple questions. According to the record he has been in assisted living and has a history of polysubstance abuse as well as hepatitis C. This admission patient was noted to have heme positive stools and a decrease in his hemoglobin of 2.5 g since 07/03/2018. Patient denies any rectal bleeding or abdominal pain nausea or vomiting but does appear to be a poor historian and randomly begins to discuss other issues that have nothing to do with his hospital stay. He does realize he is in the hospital. Current labs noted hemoglobin 11.7, platelet count 95, WBC count 2.3, bilirubin 0.8, AST 111, ALT 62, alkaline phosphatase 156,. Patient denies any diarrhea or constipation and according to the staff he has not had a bowel movement since admission to the floor. Gastroenterology has been consulted to assist with his symptom management and plan of care. GI bleed positive Hemoccult stool and according to the record 2.5 g hemoglobin drop since 07/03/2018 current hemoglobin 11.7 Platelet count 95 this could be related to patient's chronic hepatitis C and coagulopathy Transaminitis elevated AST 111, ALT 62. This too could be related to patient's history of hepatitis C bilirubin normal History of substance abuse this will be monitored and treated per attending Anemia, mild Unknown GI history, patient did briefly note colonoscopy but unaware of timing or findings. No GI procedures noted in the [place] [facility] old record Plan Diet as tolerated per attending Monitor labs with special attention to hemoglobin Patient may need further evaluation of EGD and/or colonoscopy but will need to be 1 patient is more stable and more alert PPI drip Folic acid Bowel regimen as needed Supportive care Further recommendations to follow Patient was seen per myself and Dr. Lemos, note was written on her behalf <Galina Hannon - Last Filed: 07/08/18 13:55> - Attending Attestation seen, examined agree with above ammonia level trial of rifaximin, lactulose monitor hb closely if continues to drop may need egd <Bhavya Lemos - Last Filed: 07/09/18 05:40>
[2018-07-08] MEDS: ACYCLOVIR IV.SIG SCH ×2 (15:16→21:30)
[2018-07-08] MEDS: SODIUM CHLOR 0.9% IV.SIG SCH ×2 (15:16→21:30)
[2018-07-08] MEDS: Pantoprazole Inj 80 MG in Sodium Chlor 0.9% Inj 100 ML IV.CONT SCH (15:23)
[2018-07-08] MEDS: hydrALAZINE 25 MG Tablet PO SCH (17:31)
[2018-07-08] MEDS: MethylPREDNISolone Sod Succinate Inj 40 MG/ML Vial IV.PUSH SCH ×2 (17:34→21:30)
[2018-07-09] MEDS: Pantoprazole Inj 80 MG in Sodium Chlor 0.9% Inj 100 ML IV.CONT SCH ×3 (00:08→22:58)
[2018-07-09] MEDS: MethylPREDNISolone Sod Succinate Inj 40 MG/ML Vial IV.PUSH SCH ×3 (05:46→22:48)
[2018-07-09] MEDS: SODIUM CHLOR 0.9% IV.SIG SCH ×3 (05:47→22:47)
[2018-07-09] MEDS: ACYCLOVIR IV.SIG SCH ×3 (05:47→22:47)
[2018-07-09 06:08] LABS: Baso % (Auto) 0.3 % (0.0-2.0); Eos % (Auto) 0.2 % (0.0-4.0); Hematocrit 36.1 % (39.0-51.0); Lymph # (Auto) 0.2 th/mm3 (1.0-4.8); Lymph % (Auto) 8.6 % (9.0-44.0); Mean Corpuscular HGB Conc 33.1 % (32.0-36.0); Mean Corpuscular Hemoglobin 29.5 pg (27.0-34.0); Mean Corpuscular Volume 88.9 fL (80.0-100.0); Mean Platelet Volume 7.3 fL (7.0-11.0); Mono # (Auto) 0.1 th/mm3 (0.0-0.9); Mono % (Auto) 2.1 % (0.0-8.0); Neut # (Auto) 2.4 th/mm3 (1.8-7.7); Neut % (Auto) 88.8 % (16.0-70.0); Platelet Count 88 th/mm3 (150-450); Red Blood Count 4.06 mil/mm3 (4.50-5.90); Red Cell Distribution Width 16.1 % (11.6-17.2); White Blood Count 2.7 th/mm3 (4.0-11.0)
[2018-07-09 06:37] LABS: Alanine Aminotransferase 54 U/L (12-78); Albumin 2.6 g/dL (3.4-5.0); Anion Gap 7 meq/L (5-15); Aspartate Aminotransferase 82 U/L (15-37); Blood Urea Nitrogen 13 mg/dL (7-18); Calcium 8.3 mg/dL (8.5-10.1); Carbon Dioxide 25.9 meq/L (21.0-32.0); Chloride 111 meq/L (98-107); Glomerular Filtration Rate 56 mL/min (>89); Glucose,Random 103 mg/dL (74-106); Sodium 144 meq/L (136-145)
[2018-07-09 06:40] LABS: Alkaline Phosphatase 143 U/L (45-117); Total Protein 6.6 g/dL (6.4-8.2)
[2018-07-09 07:03] LABS: Ovalocytes 1+
[2018-07-09] MEDS: Senna/Docusate Sodium 8.6/50 MG Tablet PO SCH ×2 (08:27→20:51)
[2018-07-09] MEDS: Multivitamin/Minerals Therapeutic Tablet PO SCH (08:27)
[2018-07-09] MEDS: Folic Acid 1 MG Tablet PO SCH (08:27)
[2018-07-09] MEDS: hydrALAZINE 25 MG Tablet PO SCH ×3 (08:27→18:38)
--- NOTE | 2018-07-09 10:39 | P.PN ---
Subjective Interval history: Follow-up altered mental status change/encephalitis July 09, 2018-patient seen and examined, reports significant improvement of mentation alert and oriented x2. Complains now of left eye irritation. Afebrile Physical Exam Vital signs: Vital Signs 07/08/18 11:35 07/08/18 12:00 07/08/18 12:02 Temperature 97.9 F Pulse Rate 103 H 107 H Respiratory Rate 18 Blood Pressure 170/98 H Pulse Oximetry 95 95 07/08/18 16:00 07/08/18 19:45 07/08/18 19:57 Temperature 97.9 F 99.2 F Pulse Rate 108 H 102 H 114 H Respiratory Rate 20 19 Blood Pressure 134/74 159/84 H Pulse Oximetry 94 L 97 07/08/18 20:32 07/08/18 21:30 07/09/18 00:00 Temperature 98.2 F Pulse Rate 90 103 H Respiratory Rate 18 17 Blood Pressure 143/72 H Pulse Oximetry 96 97 94 L 07/09/18 00:15 07/09/18 04:00 07/09/18 08:00 Temperature 97.4 F L 97.8 F Pulse Rate 114 H 98 H 111 H Respiratory Rate 17 20 Blood Pressure 151/81 H 165/73 H Pulse Oximetry 94 L 94 L 07/09/18 08:34 Temperature Pulse Rate 112 H Respiratory Rate 18 Blood Pressure Pulse Oximetry 98 Intake & Output 07/08/18 07/09/18 07/09/18 18:59 06:59 18:59 Intake Total 1822 / 1822 268 / 268 168 / 168 Output Total 700 / 700 Balance 1822 / 1822 -432 / -432 168 / 168 Weight 90.6 kg 92.3 kg Intake: IV 1572 / 1572 268 / 268 168 / 168 Protonix Inj 80 MG In NS Inj 145 / 145 100 / 100 100 ML @ 10 mls/hr IV.CONT Q10H OT[facility] Rx#:[id number] NS Inj 1,000 ML @ 100 mls/hr IV 1259 / 1259 .CONT .Q10H [facility]IA Rx#:[id number] Zovirax Inj 900 MG In NS Inj 168 / 168 168 / 168 168 / 168 150 ML @ 168 mls/hr IV.SIG Q8H [facility] Rx#:[id number] Oral 250 / 250 Output: Urine 700 / 700 Other: # Voids 3 # Incontinent Voids 6 3 Date of Last Bowel Movement 07/07/18 07/07/18 Weight On Admission 90.6 kg Narrative: GENERAL: NAD SKIN: Warm and dry. HEAD: Atraumatic. Normocephalic. EYES: Pupils equal and round. No scleral icterus. No injection or drainage. ENT: No nasal bleeding or discharge. Mucous membranes pink and moist. NECK: Trachea midline. No JVD. CARDIOVASCULAR: Regular rate and rhythm. RESPIRATORY: No accessory muscle use. Clear to auscultation. Breath sounds equal bilaterally. GASTROINTESTINAL: Abdomen soft, non-tender, nondistended. Hepatic and splenic margins not palpable. MUSCULOSKELETAL: Extremities without clubbing, cyanosis, or edema. No obvious deformities. NEUROLOGICAL: Awake and alert. No obvious cranial nerve deficits. Motor grossly within normal limits. Five out of 5 muscle strength in the arms and legs. Inaudible speech PSYCHIATRIC: mood and affect and appropriate; insight and judgment abnormal. Results - Labs CBC & Chem 7: 07/09/18 05:50 07/09/18 05:50 Laboratory Results - last 24 hr 07/08/18 07/08/18 07/08/18 13:24 17:56 21:08 WBC RBC Hgb Hct MCV MCH MCHC RDW Plt Count MPV Prelim Diff (Auto) Neut % (Auto) Lymph % (Auto) [place] % (Auto) Eos % (Auto) Baso % (Auto) Neut # (Auto) Lymph # (Auto) [place] # (Auto) Eos # (Auto) Baso # (Auto) WBC Differential Diff Scan Differential Comment Ovalocytes Sodium Potassium Chloride Carbon Dioxide Anion Gap BUN Creatinine Estimated GFR POC Glucose 209 H 94 Random Glucose Calcium Total Bilirubin AST ALT Alkaline Phosphatase Ammonia 41 H Total Protein Albumin 07/08/18 07/09/18 07/09/18 21:25 05:50 05:50 WBC 2.7 L RBC 4.06 L Hgb 12.0 L Hct 36.1 L MCV 88.9 MCH 29.5 MCHC 33.1 RDW 16.1 Plt Count 88 L MPV 7.3 Prelim Diff (Auto) Slide review pending Neut % (Auto) 88.8 H Lymph % (Auto) 8.6 L [place] % (Auto) 2.1 Eos % (Auto) 0.2 Baso % (Auto) 0.3 Neut # (Auto) 2.4 Lymph # (Auto) 0.2 L [place] # (Auto) 0.1 Eos # (Auto) 0.0 Baso # (Auto) 0.0 WBC Differential . Diff Scan Auto diff confirmed Differential Comment . Ovalocytes 1+ H Sodium 144 Potassium 4.0 Chloride 111 H Carbon Dioxide 25.9 Anion Gap 7 BUN 13 Creatinine 1.30 Estimated GFR 56 L POC Glucose 84 Random Glucose 103 Calcium 8.3 L Total Bilirubin 0.8 AST 82 H ALT 54 Alkaline Phosphatase 143 H Ammonia Total Protein 6.6 Albumin 2.6 L 07/09/18 08:27 WBC RBC Hgb Hct MCV MCH MCHC RDW Plt Count MPV Prelim Diff (Auto) Neut % (Auto) Lymph % (Auto) [place] % (Auto) Eos % (Auto) Baso % (Auto) Neut # (Auto) Lymph # (Auto) [place] # (Auto) Eos # (Auto) Baso # (Auto) WBC Differential Diff Scan Differential Comment Ovalocytes Sodium Potassium Chloride Carbon Dioxide Anion Gap BUN Creatinine Estimated GFR POC Glucose 101 Random Glucose Calcium Total Bilirubin AST ALT Alkaline Phosphatase Ammonia Total Protein Albumin Assessment and Plan - Plan 63-year-old man with Metabolic/toxic encephalopathy-improving Head CT noted and reviewed by me without any intracranial abnormality ammonia level of 41 UDS positive for opioid Consider lumbar puncture Avoid all [employer] depressant medications Severe sepsis on presentation:HR>90, WBC<4,000 and LR>2.0; however source unknown He was started on prophylactic treatment for encephalitis Patient's mentation is significantly improving with treatment with acyclovir 10 mg/kg IV q. 8-hour Heme positive stool GI has been consulted. Recommended clinical improvement prior to further evaluation with possible panendoscopy Currently on PPI drip Continue serial monitoring of H&H History of hepatitis C Chronic, continue to monitor Left eye irritation treatment with eye drop Leucopenia Pancytopenia Consult Hematology DVT prophylaxis: Chemical prophylaxis is contraindicated GI prophylaxis: PPI
[2018-07-09] MEDS ORDERED: Naphazoline 0.012% Opth Drops 30 ML Bottle LEFT EYE PRN (10:42)
[2018-07-09] MEDS ORDERED: Metoprolol Tartrate 25 MG Tablet PO PRN (17:31)
--- NOTE | 2018-07-09 18:53 | ECG ---
Date Performed: 07/08/2018 Time Performed: 20:14:27 PTAGE: 63 years EKG: SINUS TACHYCARDIA NONSPECIFIC ST & T-WAVE ABNORMALITY ABNORMAL RHYTHM ECG PREVIOUS TRACING : 07/08/2018 01.20 Since the previous tracing, no significant change noted DOCTOR: Zac Méndez Interpretating Date/Time 07/09/2018 18:52:19
[2018-07-09] MEDS: rifAXIMin 550 MG Tablet PO SCH (20:50)
[2018-07-10] MEDS: MethylPREDNISolone Sod Succinate Inj 40 MG/ML Vial IV.PUSH SCH ×2 (06:17→18:32)
[2018-07-10] MEDS: SODIUM CHLOR 0.9% IV.SIG SCH ×2 (06:18→18:33)
[2018-07-10] MEDS: ACYCLOVIR IV.SIG SCH ×2 (06:18→18:33)
[2018-07-10] MEDS: Pantoprazole Inj 80 MG in Sodium Chlor 0.9% Inj 100 ML IV.CONT SCH ×2 (06:43→13:48)
--- NOTE | 2018-07-10 08:20 | MG ---
cc: John Clinton MD SUBJECTIVE: Hyperventilation not performed. A 63-year-old man change in mental status, depression, polysubstance abuse, acyclovir, Ativan. CT negative. An 8-9 Hz, 60 microvolt bilateral posterior rhythm is seen. A lot of muscle artifact is seen blank artifact and movement artifact. No PLEDS are noted. Nothing in the temporal lobes to suggest herpes encephalitis is seen. A lot of muscle artifact is noted towards the end of the recording. IMPRESSION: Essentially unremarkable electroencephalogram. A lot of movement, but I did not see any abnormalities. No temporal lobe abnormalities were present that would suggest herpes encephalitis. MD TEQUILA Ramirez/brice , 07:52 AM , 07:55 AM
[2018-07-10] MEDS: Folic Acid 1 MG Tablet PO SCH (08:24)
[2018-07-10] MEDS: hydrALAZINE 25 MG Tablet PO SCH ×3 (08:24→18:25)
[2018-07-10] MEDS: Nadolol 20 MG Tablet PO SCH (08:24)
[2018-07-10] MEDS: Senna/Docusate Sodium 8.6/50 MG Tablet PO SCH ×2 (08:24→21:13)
[2018-07-10] MEDS: rifAXIMin 550 MG Tablet PO SCH ×2 (08:24→21:13)
[2018-07-10] MEDS: Multivitamin/Minerals Therapeutic Tablet PO SCH (08:25)
[2018-07-10] MEDS ORDERED: Influenza (Quadrivalent) Vaccine 0.5 ML Syringe IM ONE (09:30)
--- NOTE | 2018-07-10 10:15 | GIPROC ---
[facility] [address] [facility]. [facility] [place], [address] EGD PROCEDURE REPORT EXAM DATE: 07/10/2018 PATIENT NAME: Driss Sellers MR #: [id number] BIRTHDATE: 1955 ATTENDING: Karel Riley MD ORDER #: [id number] COOK JELLY: Aishwarya Patterson and Marcela Viera STATUS: inpatient INDICATIONS: The patient is a 63 yr old male here for an EGD due to H/O Hep C and Alcohol Liver disease PROCEDURE PERFORMED: EGD w/ biopsy MEDICATIONS: Per Anesthesia and None. TOPICAL ANESTHETIC: none CONSENT: The patient understands the risks and benefits of the procedure and understands that these risks include, but are not limited to: sedation, allergic reaction, infection, perforation and/or bleeding. Alternative means of evaluation and treatment include, among others: physical exam, x-rays, and/or surgical intervention. The patient elects to proceed with this endoscopic procedure. medical equipment was checked for proper function. Hand hygiene and appropriate measures for infection prevention was taken. After the risks, benefits and alternatives of the procedure were thoroughly explained, Informed consent was verified, confirmed and timeout was successfully executed by the treatment team. The patient was anesthetized with topical anesthesia and the Pentax EG-[id number] endoscope was introduced through the mouth and advanced to the second portion of the duodenum. Retroflexed views revealed Gastroperesis The gastroscope was then slowly withdrawn and removed. ESOPHAGUS: There was LA Class A esophagitis noted. There were 2 columns of small varices in the proximal esophagus. The varices were not bleeding. No SRH. STOMACH: Moderate portal hypertensive gastropathy was found in the entire examined stomach. There was a moderate amount of residual food seen in the gastric fundus. Based on this, I suspect the patient has some level of gastroparesis. DUODENUM: The duodenal mucosa appeared normal in the entire duodenum. ADVERSE EVENTS: There were no complications. IMPRESSIONS: 1. There was LA Class A esophagitis noted 2. Portal hypertensive gastropathy was found in the entire examined stomach 3. Food residue in the gastric fundus 4. Normal duodenal mucosa in the entire duodenum 5. Retroflexed views revealed Gastroperesis RECOMMENDATIONS: Await biopsy results. Biopsy results will not be ready for 7-10 days. If you don't hear from us in two weeks, call our office for biopsy results. PATIENT CONDITION: stable DISPOSITION: Inpatient REPEAT EXAM: Return as needed for EGD Karel Riley MD eSigned: Karel Riley MD 07/10/2018 10:15 AM cc: PATIENT NAME: Driss Sellers MR#: [id number]
[2018-07-10] MEDS ORDERED: Metoprolol Tartrate 25 MG Tablet PO ONE (12:56)
[2018-07-10] MEDS ORDERED: Chlorhexidine Gluconate 2% 1 Pack (2 Cloths) TOPICAL ONE (12:56)
[2018-07-10] MEDS ORDERED: Sodium Chlor 0.9% Inj 500 ML IV.SIG ONE (13:00)
[2018-07-10 14:36] LABS: Reticulocyte Percent 1.9 % (0.4-3.0)
[2018-07-10 14:51] LABS: Activated Partial Thrombo Time 33.6 sec (23.4-31.7); INR 1.3 Ratio; Prothrombin Time 12.8 sec (9.8-11.6)
[2018-07-10 14:55] LABS: Uric Acid 6.6 mg/dl (2.6-7.2)
--- NOTE | 2018-07-10 15:27 | MB ---
cc: Hayley Russo MD DATE: 07/10/2018 HISTORY OF PRESENT ILLNESS: The patient is a 63-year-old gentleman with a history of polysubstance abuse. The patient reports that he is currently sober. Hypertension, hepatitis C, depression, arthritis and nephrolithiasis, who was admitted to the hospital on 07/08/2018 with altered mental status. He was previously living in [facility]. Septic workup initiated. He had a hemoglobin drop, which showed Hemoccult positive stools. Gastroenterology team consulted and the patient underwent EGD on 06/2011 which revealed esophagitis, portal hypertensive gastropathy and gastroparesis. Hematology service consulted for further evaluation and management of pancytopenia. PAST MEDICAL HISTORY: Depression, hepatitis C, hypertension, nephrolithiasis, polysubstance abuse, currently sober. SOCIAL HISTORY: History of polysubstance abuse. Lives in this area. Poor support system. FAMILY HISTORY: No known family history of pancytopenia. ROS as above in hPI all others negative HOSPITAL MEDICATIONS: Include: 1. Acyclovir. 2. Folic acid. 3. Metoprolol. 4. Multivitamin. 5. Senna. 6. Docusate. 7. B12. PHYSICAL EXAMINATION: VITAL SIGNS: Temperature 97.3, pulse 93, respiratory rate 18, pulse oximetry 94% on room air. GENERAL: Well-developed, well-nourished man in no distress. HEENT: Head is normocephalic, atraumatic. Eyes: No scleral icterus. NECK: Supple. CARDIOVASCULAR: Regular rate and rhythm. No murmurs. RESPIRATORY: Clear to auscultation bilaterally. ABDOMEN: Soft, nontender, nondistended. Bowel sounds present. EXTREMITIES: No edema. NEUROLOGIC: Grossly nonfocal. PSYCHIATRIC: Appropriate mood and affect. IMAGING STUDIES: CT of the abdomen and pelvis from 07/03/2018 showing possible cirrhosis, splenomegaly, celiac retroperitoneal tayo hepatis lymphadenopathy not significantly changed from prior. LABORATORY STUDIES: White blood cell count 2.7, hemoglobin 12, platelet count is 88,000. Platelet count has intermittently been low in the past, but does go up to the low normal range. Hemoglobin at baseline is approximately 14 and white blood cell count at baseline is within normal limits. Chemistry studies with AST that slightly elevated, alkaline phosphatase elevated creatinine 1.3. ASSESSMENT AND PLAN: Pancytopenia new as of this hospital admission. The patient is currently being treated for encephalitis and septic workup is also pending at this time. We will check vitamin B12, folate, copper to ensure that he does not have any nutritional abnormalities. We will check coags LDH. We will check a peripheral slide review. We will also check reticulocyte counts. If does not improve, we will consider bone marrow biopsy in the outpatient setting. We will also check flow cytometry. Inpatient hematology team will continue to follow. MD ERIN Caruso/brice/maximino , 01:36 PM , 01:44 PM MTDCarol Ann
[2018-07-10] MEDS ORDERED: Naloxone Inj 0.4 MG/ML Vial IV.PUSH PRN (16:25)
[2018-07-10] MEDS ORDERED: Acetaminophen 325 MG Tablet PO PRN (16:25)
--- NOTE | 2018-07-10 16:38 | P.PNIM ---
Subjective Interval history: Reports no complaints of chills or fever or headaches. Does have chronic neck pain for many years. He was seen in the emergency room for left ankle sprain and states that he may have taken some extra narcotics he has had left over from previous surgeries. He is being followed by [facility] as an outpatient and they are in the process of titrating his medications. He has been on Seroquel for 18-month and they are attempting to switch him over to trazodone. He is also on Wellbutrin and Effexor for his history of depression. He denies any active suicidal thoughts or any depression. He reports he is in a residential group home house. He reports he has history of hepatitis C Physical Exam Vital signs: Last Vital Signs Temp 98.0 F 07/10/18 12:00 Pulse 96 H 07/10/18 13:59 Resp 16 07/10/18 13:59 BP 115/65 07/10/18 12:00 Pulse Ox 94 L 07/10/18 12:00 Intake & Output 07/08/18 07/09/18 07/10/18 07/11/18 06:59 06:59 06:59 06:59 Intake Total 2700 / 2700 2090 / 2090 964 / 964 368 / 368 Output Total 700 / 700 600 / 600 Balance 2700 / 2700 1390 / 1390 364 / 364 368 / 368 Weight 93.8 kg 92.3 kg Narrative: GENERAL: Well-nourished well-developed white male in NAD SKIN: Warm and dry. CARDIOVASCULAR: Regular rate and rhythm. RESPIRATORY: No accessory muscle use. Clear to auscultation. Breath sounds equal bilaterally. GASTROINTESTINAL: Abdomen soft, non-tender, nondistended. Normoactive bowel sounds MUSCULOSKELETAL: Extremities without clubbing, cyanosis, or edema. No obvious deformities. NEUROLOGICAL: Awake and alert to person place time and situation.. No obvious cranial nerve deficits. Motor grossly within normal limits. Five out of 5 muscle strength in the arms and legs. Inaudible speech PSYCHIATRIC: mood and affect and appropriate, not anxious; insight and judgment abnormal. Results Labs CBC & Chem 7: 07/09/18 05:50 07/09/18 05:50 Labs: Microbiology 07/08/18 00:25 Blood - Peripheral Aerobic Blood Culture - Preliminary No growth in 2 days 07/08/18 00:25 Blood - Peripheral Anaerobic Blood Culture - Preliminary No growth in 2 days 07/08/18 00:20 Blood - Peripheral Aerobic Blood Culture - Preliminary No growth in 2 days 07/08/18 00:20 Blood - Peripheral Anaerobic Blood Culture - Preliminary No growth in 2 days Assessment and Plan Plan 63-year-old white male was originally admitted for confusion Metabolic/toxic encephalopathy-now resolved and patient is alert and oriented x4. Unsure if this is due to recent opiate use and multiple mood stabilizing medications including Seroquel. Head CT noted and reviewed by me without any intracranial abnormality ammonia level of 41 UDS positive for opioid Continue with neurological checks. Severe sepsis on presentation:HR>90, WBC<4,000 and LR>2.0; however source unknown, ?viral He was started on prophylactic treatment for encephalitis ; at this time discontinue and continue to monitor patient's neurological status. Blood culture has been negative, influenza negative, patient is not having any diarrhea nor any active coughing at this time. Heme positive stool with stable hemoglobin overnight Will switch IV Protonix drip to p.o. Status post upper endoscopy today with findings of esophagitis, portal hypertension and gastroparesis. Restart diet. Hemoglobin has remained stable History of hepatitis C Chronic, continue to monitor, follow-up with GI as an outpatient. Left eye irritation treatment with eye drop Pancytopenia Appreciate hematology recommendations. Workup in progress. If levels does not improve we will need to consider bone marrow biopsy as an outpatient. We will continue to monitor. History of depression with mood disorderconsult psychiatry to evaluate for adjustment of home medication. Unsure if multi-pharmacy contributed to his presenting altered mental status, encephalopathy. DVT prophylaxis: Chemical prophylaxis is contraindicated due to recent GI bleed Progress Note: Quality VTE Deep Vein Thrombosis/Pulmonary Embolism Present on Admission: No
[2018-07-10] MEDS: Duloxetine 60 MG DR Capsule PO SCH (18:25)
[2018-07-10] MEDS: Venlafaxine XR 75 MG Capsule PO SCH (18:25)
[2018-07-10] MEDS: QUEtiapine 100 MG Tablet PO SCH (21:13)
[2018-07-11 05:26] LABS: Baso % (Auto) 0.1 % (0.0-2.0); Eos % (Auto) 0.3 % (0.0-4.0); Hematocrit 35.8 % (39.0-51.0); Hemoglobin 12.1 gm/dL (13.0-17.0); Lymph # (Auto) 0.8 th/mm3 (1.0-4.8); Lymph % (Auto) 11.4 % (9.0-44.0); Mean Corpuscular HGB Conc 33.8 % (32.0-36.0); Mean Corpuscular Volume 88.6 fL (80.0-100.0); Mean Platelet Volume 7.7 fL (7.0-11.0); Mono # (Auto) 0.6 th/mm3 (0.0-0.9); Mono % (Auto) 8.6 % (0.0-8.0); Neut # (Auto) 5.3 th/mm3 (1.8-7.7); Neut % (Auto) 79.6 % (16.0-70.0); Platelet Count 114 th/mm3 (150-450); Red Blood Count 4.04 mil/mm3 (4.50-5.90); Red Cell Distribution Width 16.6 % (11.6-17.2); White Blood Count 6.6 th/mm3 (4.0-11.0)
[2018-07-11] MEDS: Senna/Docusate Sodium 8.6/50 MG Tablet PO SCH (08:51)
[2018-07-11] MEDS: Venlafaxine XR 75 MG Capsule PO SCH (08:51)
[2018-07-11] MEDS: hydrALAZINE 25 MG Tablet PO SCH ×2 (08:52→13:07)
[2018-07-11] MEDS: Multivitamin/Minerals Therapeutic Tablet PO SCH (08:53)
[2018-07-11] MEDS: Duloxetine 60 MG DR Capsule PO SCH (08:54)
[2018-07-11] MEDS: Nadolol 20 MG Tablet PO SCH (08:54)
[2018-07-11] MEDS: Folic Acid 1 MG Tablet PO SCH (08:54)
[2018-07-11] MEDS: rifAXIMin 550 MG Tablet PO SCH ×2 (08:54→20:14)
--- NOTE | 2018-07-11 10:27 | P.PNIM ---
Subjective Interval history: Patient reports that he is feeling much better. He had a dry cough prior to coming to the hospital that seems to be better. No active chest pain, breathing better. Reports he slept better with the Seroquel last night. He would like to work with physical therapy today. Physical Exam Vital signs: Last Vital Signs Temp 97.7 F 07/11/18 08:00 Pulse 94 H 07/11/18 08:00 Resp 18 07/11/18 08:00 BP 134/94 H 07/11/18 08:00 Pulse Ox 95 07/11/18 08:00 Intake & Output 07/09/18 07/10/18 07/11/18 07/12/18 06:59 06:59 06:59 06:59 Intake Total 2090 / 2090 964 / 964 963 / 963 Output Total 700 / 700 600 / 600 1000 / 1000 Balance 1390 / 1390 364 / 364 -37 / -37 Weight 92.3 kg Narrative: GENERAL: Well-nourished well-developed white male in NAD SKIN: Warm and dry. CARDIOVASCULAR: Regular rate and rhythm. RESPIRATORY: No accessory muscle use. Clear to auscultation. Breath sounds equal bilaterally. GASTROINTESTINAL: Abdomen soft, non-tender, nondistended. Normoactive bowel sounds MUSCULOSKELETAL: Extremities without clubbing, cyanosis, or edema. No obvious deformities. NEUROLOGICAL: Awake and alert to person place time and situation.. No obvious cranial nerve deficits. Motor grossly within normal limits. Five out of 5 muscle strength in the arms and legs. Normal speech PSYCHIATRIC: mood and affect and appropriate, not anxious; insight and judgment abnormal. Results Labs CBC & Chem 7: 07/11/18 04:30 07/09/18 05:50 Labs: Microbiology 07/08/18 00:25 Blood - Peripheral Aerobic Blood Culture - Preliminary No growth in 2 days 07/08/18 00:25 Blood - Peripheral Anaerobic Blood Culture - Preliminary No growth in 2 days 07/08/18 00:20 Blood - Peripheral Aerobic Blood Culture - Preliminary No growth in 2 days 07/08/18 00:20 Blood - Peripheral Anaerobic Blood Culture - Preliminary No growth in 2 days Assessment and Plan Plan 63-year-old white male was originally admitted for confusion Metabolic/toxic encephalopathy-now resolved and patient is alert and oriented x4. Unsure if this is due to recent opiate use and multiple mood stabilizing medications including Seroquel. Head CT without any intracranial abnormality ammonia level of 41 on presentation UDS positive for opioid, patient states that he was taking a previous leftover narcotic prescription to help with his left ankle pain. Neurochecks are stable. Severe sepsis on presentation:HR>90, WBC<4,000 and LR>2.0; however source unknown, ?viral due to upper respiratory infection He was started on prophylactic treatment for encephalitis which was discontinue yesterday and patient continues to have stable neurological status. Blood culture has been negative, influenza negative, patient's cough seems to have improved, loose stools due to lactulose which we will discontinue today. Heme positive stool with stable hemoglobin overnight Continue PPI. Status post upper endoscopy 07/10 with findings of esophagitis, portal hypertension and gastroparesis. Restart diet. Hemoglobin has remained stable History of hepatitis C Chronic, continue to monitor, follow-up with GI as an outpatient. Left eye irritation treatment with eye drop Pancytopenia improving overnight. Appreciate hematology recommendations. Workup in progress. We will continue to monitor. History of depression with mood disorderconsult psychiatry to evaluate for adjustment of home medication. Unsure if multi-pharmacy contributed to his presenting altered mental status, encephalopathy. DVT prophylaxis: Chemical prophylaxis is contraindicated due to recent GI bleed Progress Note: Quality VTE Deep Vein Thrombosis/Pulmonary Embolism Present on Admission: No
--- NOTE | 2018-07-11 12:31 | P.CONPSY ---
Provisional Diagnosis Admission Date: July 08, 2018 04:32 [place] I.: History of bipolar disorder, polysubstance dependence, sustained full remission History of Present Illness Service: Medicine Primary Care Provider: UNKNOWN Chief Complaint: altered Mental status change History of Present Illness: The patient is a 63-year-old man, domiciled in a residential facility , , unemployed, supported by Social Security, with a significant psychiatric history of depression, bipolar disorder, polysubstance dependence, he is in sustained full remission, outpatient care in [facility], he is on Cymbalta 60 mg, Effexor 75 twice daily, Seroquel 200 mg, Wellbutrin 75 twice daily. Medical history hypertension, hepatitis C, CHF, who was originally admitted for confusion: Metabolic/toxic encephalopathy-now resolved and patient is alert and oriented x4. Head CT without any intracranial abnormality. Ammonia was 41 on presentation. He was started on prophylactic treatment for encephalitis which was discontinue yesterday and patient continues to have stable neurological status. Blood culture has been negative, influenza negative, patient's cough seems to have improved, loose stools due to lactulose which we will discontinue today. History of depression with mood disorderconsult psychiatry to evaluate for adjustment of home medication. Unsure if multi-pharmacy contributed to his presenting altered mental status, encephalopathy. Chart was reviewed. On my psychiatric evaluation I find a patient that is calm, cooperative, very pleasant. Patient reports that he feels much better today. The patient is fully oriented x3. At the moment the patient reports good mood, denies anhedonia, denies hopelessness, denies helplessness, denies worthlessness, denies putting a sleeping, denies poor appetite, problems with energy, he denies suicidal and homicidal ideation, he denies visual and auditory hallucinations. The patient is fully oriented x3. No attention deficit, no filtration of consciousness, no gross cognitive impairment present. Patient is able to tell me that he has been in current psychotropic regimen for many months. No significant side effects. PPHx: psychiatric history of depression, bipolar disorder, polysubstance dependence, he is in sustained full remission, outpatient care in [facility], he is on Cymbalta 60 mg, Effexor 75 twice daily, Seroquel 200 mg, Wellbutrin 75 twice daily PMHx: . Medical history hypertension, hepatitis C, CHF, Substance Hx: History of using alcohol, heroine, cocaine, but has been clean for about 6 years Family Hx: No family psychiatric history Social Hx: Born and raised the [place], family is in [place], he lives in a residential facility, , father of 3 kids, no contact, unemployed, no suicide his highest level of education is a college degree Review of Systems All other systems reviewed negative except as stated in HPI PMFSH - History History Provided By: Patient - Medical History Medical History: Medical History (Last Reviewed 07/11/18 @ 08:23 by [employer]) Arthritis Bursitis Depression Hepatitis C Hypertension Kidney stones Polysubstance abuse - Tobacco History Second Hand Smoke Exposure: No Smoking Status: Never smoker - Alcohol History How Often Do You Have a Drink Containing Alcohol: Never - Substance Use History Substance History: No History of Abuse - Travel History Recent Travel in the [place] Within the Last 8 Weeks: No Recent Travel Out of the Country Within the Last 8 Weeks: No - Immunization History Tetanus Immunization: Unsure Tetanus Immunization Year if Known: 2011 Hx Influenza Vaccine This Season: Yes Medications and Allergies Active Medications: Active Medications Acetaminophen (Tylenol) 650 mg PO Q4H PRN PRN Reason: Temp > 100.4 Acetaminophen (Tylenol) 650 mg PO Q6HR PRN PRN Reason: PAIN SCALE 1 TO 5 Al Hydroxide/Mg Hydroxide (Milk Of Magnindiana Liq) 30 ml PO Q12H PRN PRN Reason: Mild Constipation Albuterol (Duoneb Neb (Prn)) 1 ampul NEB Q2HR NEB PRN PRN Reason: SHORTNESS OF BREATH Albuterol (Duoneb Neb ([place])) 1 ampul NEB Q6HR WHILE AWAKE NEB [facility] Last Admin: 07/11/18 12:11 Dose: 1 ampul Bisacodyl (Dulcolax Supp) 10 mg RECTAL DAILY PRN PRN Reason: SEVERE CONSITIPATION Duloxetine HCl (Cymbalta) 60 mg PO DAILY [facility] Last Admin: 07/11/18 08:54 Dose: 60 mg Enalaprilat (Vasotec Inj) 2.5 mg IV.PUSH Q6H PRN PRN Reason: SBP>160, DBP>90 Last Admin: 07/08/18 15:27 Dose: 2.5 mg Folic Acid (Folic Acid) 1 mg PO DAILY [facility] Stop: 07/13/18 08:59 Last Admin: 07/11/18 08:54 Dose: 1 mg Hydralazine HCl (Apresoline) 25 mg PO TID [facility] Last Admin: 07/11/18 08:52 Dose: 25 mg Metoprolol Tartrate (Lopressor) 12.5 mg PO BID PRN PRN Reason: SBP>180, DBP>100, HR>65 Last Admin: 07/09/18 20:51 Dose: 12.5 mg Multivitamins/Minerals (Theragran-M) 1 tab PO DAILY [facility] Stop: 07/13/18 08:59 Last Admin: 07/11/18 08:53 Dose: 1 tab Nadolol (Corgard) 20 mg PO DAILY [facility] Last Admin: 07/11/18 08:54 Dose: 20 mg Naloxone HCl (Narcan Inj) 0.4 mg IV.PUSH UNSCH PRN PRN Reason: SEE LABEL COMMENTS Naphazoline HCl (Clear Eyes Redness Relief 0.012% Opth Drops) 1 drop LEFT EYE Q4H PRN PRN Reason: DRY EYE(S) Ondansetron HCl (Zofran Inj) 4 mg IV.PUSH Q6H PRN PRN Reason: NAUSEA OR VOMITING Pantoprazole Sodium (Protonix) 40 mg PO DAILY [facility] Last Admin: 07/11/18 08:53 Dose: 40 mg Quetiapine Fumarate (Seroquel) 100 mg PO HS [facility] Last Admin: 07/10/18 21:13 Dose: 100 mg Rifaximin (Xifaxan) 550 mg PO Q12HR [facility] Last Admin: 07/11/18 08:54 Dose: 550 mg Sennosides (Senokot) 17.2 mg PO Q12H PRN PRN Reason: Moderate Constipation Sodium Chloride (Ns Flush) 2 ml IV.FLUSH BID [facility] Last Admin: 07/11/18 09:43 Dose: 2 ml Sodium Chloride (Ns Flush) 2 ml IV.FLUSH PRN PRN PRN Reason: FLUSH AFTER USING IV ACCESS Thiamine HCl (Vitamin B1) 100 mg PO DAILY [facility] Last Admin: 07/11/18 08:51 Dose: 100 mg Tramadol HCl (Ultram) 50 mg PO Q4H PRN PRN Reason: PAIN SCALE 6 TO 10 Venlafaxine HCl (Effexor Xr) 75 mg PO DAILY [facility] Last Admin: 07/11/18 08:51 Dose: 75 mg Allergies Allergy/AdvReac Type Severity Reaction Status Date / Time chisholm Allergy Severe THROAT Verified 07/03/18 13:07 SWELLS grass pollen Allergy Severe ASTHMA Verified 07/03/18 13:07 house dust Allergy Severe ASTHMA Verified 07/03/18 13:07 tree nut Allergy Severe THROAT Verified 07/03/18 13:07 SWELLS Home Medications Medication Instructions Recorded Confirmed Type divalproex 250 mg PO BID 07/03/18 07/03/18 History duloxetine [Cymbalta] 60 mg PO DAILY 07/03/18 07/03/18 History lisinopril 30 mg PO DAILY 07/03/18 07/03/18 History trazodone 50 mg PO HS 07/03/18 07/03/18 History venlafaxine [Effexor XR] 75 mg PO DAILY 07/03/18 07/03/18 History bupropion HCl 150 mg PO DAILY 07/08/18 07/08/18 History quetiapine [Seroquel] 400 mg PO HS 07/08/18 07/08/18 History Exam Vital signs: Vital Signs 07/10/18 13:59 07/10/18 16:00 07/10/18 19:02 Temperature 98.0 F Pulse Rate 96 H 91 H 97 H Respiratory Rate 16 19 18 Blood Pressure 136/79 Pulse Oximetry 92 L 07/10/18 19:03 07/10/18 20:00 07/11/18 00:00 Temperature 97.8 F 98 F Pulse Rate 92 H 78 Respiratory Rate 20 20 Blood Pressure 144/70 H 153/86 H Pulse Oximetry 96 95 94 L 07/11/18 04:00 07/11/18 07:45 07/11/18 08:00 Temperature 97.4 F L 97.7 F Pulse Rate 82 80 94 H Respiratory Rate 20 18 18 Blood Pressure 134/75 134/94 H Pulse Oximetry 94 L 96 95 07/11/18 12:13 Temperature Pulse Rate 87 Respiratory Rate 18 Blood Pressure Pulse Oximetry Intake & Output 07/10/18 07/11/18 07/11/18 18:59 06:59 18:59 Intake Total 963 / 963 0 / 0 Output Total 1000 / 1000 Balance -37 / -37 0 / 0 Intake: IV 303 / 303 Protonix Inj 80 MG In NS Inj 135 / 135 100 ML @ 10 mls/hr IV.CONT Q10H [facility] Rx#:[id number] Zovirax Inj 900 MG In NS Inj 168 / 168 150 ML @ 168 mls/hr IV.SIG Q8H [facility] Rx#:[id number] Oral 560 / 560 0 / 0 Anesthesia Amount 100 / 100 Output: Urine 1000 / 1000 Other: # Voids 2 Date of Last Bowel Movement 07/10/18 07/11/18 # Bowel Movements 0 0 Narrative: No tremors, no EPS, no catatonia, no withdrawal symptoms - Constitutional no acute distress - Routine HEENT Exam Head: Present: normocephalic, atraumatic Eye: Present: EOMI ENT: Present: mucous membranes moist Mental Status Examination Appearance: Appropriate Consciousness: Alert Orientation: x4 Motor Activity: Normal gait Speech: Unremarkable Language: Adequate Fund of Knowledge: Adequate Attention and Concentration: Adequate Memory: Unremarkable Mood: Appropriate Affect: Appropriate Thought Process & Associations: Intact Thought Content: Appropriate Hallucination Type: None Delusion Type: None Suicidal Ideation: No Suicidal Plan: No Suicidal Intention: No Homicidal Ideation: No Homicidal Plan: No Homicidal Intention: No Insight: Adequate Judgment: Adequate Assessment and Plan - Assessment (1) Bipolar disease, chronic Code(s): F31.9 - Bipolar disorder, unspecified Status: Acute - Plan Plan: At the moment of the psychiatric evaluation the patient does not present any neuropsychiatric symptom for which the patient may need an immediate psychiatric intervention. The patient denies symptomatology of depression, anxiety, ronny or psychosis. The patient denies suicidal and homicidal ideation , he denies visual and auditory hallucinations. The patient is logical, coherent and relevant. No attention deficit, no fluctuation of consciousness, no disorientation at the moment. Patient was admitted to medicine due to confusion. He has a psychiatric history of bipolar disorder, polysubstance dependence, he has been stable for many months on the following regimen: Cymbalta 60, Effexor 75 twice daily, Wellbutrin 75 twice daily, Seroquel 200 mg. To the question if the psychotropic regimen could be the source of his confusion, is possible. There is no clear indication for 3 antidepressants at the same time in a person with bipolar disorder, especially when any of the antidepressants are in the highest recommended dose. Will DC Wellbutrin, will DC Effexor. Continue Cymbalta 60 mg with Seroquel 100 mg twice daily. No admission is indicated. Extensive psychoeducation and motivation provided. Consult appreciated. Justification for Continued Inpatient Stay: No admission is indicated.
[2018-07-11] MEDS ORDERED: Diatrizoate Meglum/Diatrizoate Sod Liq 9 ML UDC PO ONE (19:34)
--- NOTE | 2018-07-11 19:40 | P.PNGI ---
Subjective Interval history: Patient awake and alert, denies any discomfort at this time. Denies nausea vomiting or abdominal pain Post EGD Physical Exam Vital signs: Vital Signs 07/10/18 20:00 07/11/18 00:00 07/11/18 04:00 Temperature 97.8 F 98 F 97.4 F L Pulse Rate 92 H 78 82 Respiratory Rate 20 20 20 Blood Pressure 144/70 H 153/86 H 134/75 Pulse Oximetry 95 94 L 94 L 07/11/18 07:45 07/11/18 08:00 07/11/18 12:00 Temperature 97.7 F 98.3 F Pulse Rate 80 94 H 77 Respiratory Rate 18 18 18 Blood Pressure 134/94 H 130/73 Pulse Oximetry 96 95 94 L 07/11/18 12:13 07/11/18 16:00 Temperature 98.5 F Pulse Rate 87 72 Respiratory Rate 18 16 Blood Pressure 148/84 H Pulse Oximetry Intake & Output 07/11/18 07/11/18 07/12/18 06:59 18:59 06:59 Intake Total 0 / 0 Balance 0 / 0 Intake: Oral 0 / 0 Other: # Voids 2 Date of Last Bowel Movement 07/10/18 07/11/18 # Bowel Movements 0 - Constitutional no acute distress, chronically ill appearing - Routine HEENT Exam Head: Present: normocephalic - Routine Respiratory Exam Present: CTA bilaterally - Routine Cardiovascular Exam Present: RRR - Routine Abdominal Exam Present: soft, normoactive bowel sounds. Absent: tenderness - Routine Skin Exam Present: dry, warm - Routine Neurological Exam Present: alert Results - Labs CBC & Chem 7: 07/11/18 04:30 07/09/18 05:50 Laboratory Results - last 24 hr 07/11/18 07/11/18 07/11/18 04:30 06:58 07:28 WBC 6.6 RBC 4.04 L Hgb 12.1 L Hct 35.8 L MCV 88.6 MCH 30.0 MCHC 33.8 RDW 16.6 Plt Count 114 L MPV 7.7 Neut % (Auto) 79.6 H Lymph % (Auto) 11.4 [place] % (Auto) 8.6 H Eos % (Auto) 0.3 Baso % (Auto) 0.1 Neut # (Auto) 5.3 Lymph # (Auto) 0.8 L [place] # (Auto) 0.6 Eos # (Auto) 0.0 Baso # (Auto) 0.0 WBC Differential . Differential Comment Auto diff final POC Glucose 107 75 Microbiology 07/08/18 00:25 Blood - Peripheral Aerobic Blood Culture - Preliminary No growth in 3 days 07/08/18 00:25 Blood - Peripheral Anaerobic Blood Culture - Preliminary No growth in 3 days 07/08/18 00:20 Blood - Peripheral Aerobic Blood Culture - Preliminary No growth in 3 days 07/08/18 00:20 Blood - Peripheral Anaerobic Blood Culture - Preliminary No growth in 3 days Assessment and Plan - Plan 63-year-old male who was admitted back to the hospital on 07/07/2018 with altered mental status according to the record currently patient continues to have altered mental status randomly does attempt to answer some of the simple questions. According to the record he has been in assisted living and has a history of polysubstance abuse as well as hepatitis C. This admission patient was noted to have heme positive stools and a decrease in his hemoglobin of 2.5 g since 07/03/2018. Patient denies any rectal bleeding or abdominal pain nausea or vomiting but does appear to be a poor historian and randomly begins to discuss other issues that have nothing to do with his hospital stay. He does realize he is in the hospital. Current labs noted hemoglobin 11.7, platelet count 95, WBC count 2.3, bilirubin 0.8, AST 111, ALT 62, alkaline phosphatase 156,. Patient denies any diarrhea or constipation and according to the staff he has not had a bowel movement since admission to the floor. Gastroenterology has been consulted to assist with his symptom management and plan of care. GI bleed positive Hemoccult stool and according to the record 2.5 g hemoglobin drop since 07/03/2018 current hemoglobin 11.7 Platelet count 95 this could be related to patient's chronic hepatitis C and coagulopathy Transaminitis elevated AST 111, ALT 62. This too could be related to patient's history of hepatitis C bilirubin normal History of substance abuse this will be monitored and treated per attending Anemia, mild Unknown GI history, patient did briefly note colonoscopy but unaware of timing or findings. No GI procedures noted in the [facility] old record 07/11/2018 Patient awake and alert Denies abdominal pain nausea vomiting Post EGD--07/10/2018 1. There was LA Class A esophagitis noted 2. Portal hypertensive gastropathy was found in the entire examined stomach 3. Food residue in the gastric fundus 4. Normal duodenal mucosa in the entire duodenum 5. Retroflexed views revealed Gastroperesis WBC 6.6 hemoglobin 12.1 hematocrit 35.8 platelet count 114 07/09/2018 alpha-fetoprotein 24.7 Plan Diet as tolerated Monitor labs Bowel regimen Await biopsies CT abdomen and pelvis with IV and oral contrast for evaluation/elevated AFP Supportive care Further recommendations to follow This patient has been seen by myself and Dr. Riley and this note is written on his behalf - Attending Attestation Dr. Riley
[2018-07-11] MEDS: QUEtiapine 100 MG Tablet PO SCH (20:14)
--- NOTE | 2018-07-11 21:44 | CT ---
EXAM DATE: 07/11/2018 9:36 PM EST AGE/SEX: 63 years / Male INDICATIONS: Abdominal discomfort. CLINICAL DATA: This is the patient's initial encounter. Patient reports that signs and symptoms have been present for 1 day and indicates a pain score of 1/10. MEDICAL/SURGICAL HISTORY: Hepatitis C. Hypertension. Renal calculi. None. ORAL CONTRAST: Prescribed oral contrast ingested. RADIATION DOSE: 23.09 CTDI (mGy) [place] [facility] [place] 07/03/2018. . TECHNIQUE: Multiple contiguous axial images were obtained through the abdomen and pelvis following b olus infusion of 95 ml Omnipaque 350 (iohexol) nonionic water-soluble contrast as a single exam dos e. Prescribed oral contrast ingested. Using automated exposure control and adjustment of the mA and/ or kV according to patient size, radiation dose was kept as low as reasonably achievable to obtain op timal diagnostic quality images. DICOM format image data is available electronically for review and comparison. FINDINGS: Lower Lungs: His mild consolidation and/or atelectasis now noted in the right posterior lung base. Liver: The liver has a homogeneous density without space-occupying lesion. There is no dilation of th e biliary tree. A calcified gallstone is again noted in the gallbladder with no wall thickening or in flammatory change. There is mild hepatic steatosis. Mild adenopathy is again noted in the region of t he tayo hepatis. Spleen: At the upper limits of normal in size with no distinct focal lesion or ascites.. Pancreas: Unremarkable without mass or calcification. Kidneys: Normal in size and shape. No evidence of a solid mass or hydronephrosis. A cyst is again no adgmar in left kidney. There is a tiny right renal calculus again noted. Adrenal Glands: Unremarkable. Aorta: The aorta and proximal iliac vessels are grossly unremarkable without aneurysmal dilation. Bowel/Mesentery: The bowel loops are grossly unremarkable. The cecum and sigmoid colon have a normal configuration. Multiple small central mesenteric lymph nodes are again noted. Abdominal Wall: Intact. Retroperitoneum: Mild adenopathy is again noted in the retroperitoneum without change. Bladder: Contours are smooth. Reproductive Organs: No abnormal masses or calcifications seen. Inguinal: The inguinal region is unremarkable without evidence of adenopathy. Bony Structures: Osteopenia, degenerative change and mild scoliosis are present. CONCLUSION: 1. Cholelithiasis again noted with no wall thickening or inflammatory change. 2. Nonobstructing tiny right renal calculus. 3. Unremarkable bowel gas pattern. 4. Mild hepatic steatosis. 5. Mild consolidation and/or atelectasis in the right posterior lung base which is new from the prio r study. 6. Stable mild portal and retroperitoneal adenopathy. There is small mesenteric lymph nodes again no dagmar as well. Electronically signed by: Juarez Lira MD 07/11/2018 9:43 PM EST
[2018-07-12 07:33] LABS: Baso % (Auto) 0.3 % (0.0-2.0); Eos # (Auto) 0.2 th/mm3 (0.0-0.4); Eos % (Auto) 4.4 % (0.0-4.0); Hematocrit 36.3 % (39.0-51.0); Hemoglobin 12.3 gm/dL (13.0-17.0); Lymph # (Auto) 0.6 th/mm3 (1.0-4.8); Lymph % (Auto) 15.9 % (9.0-44.0); Mean Corpuscular HGB Conc 33.8 % (32.0-36.0); Mean Corpuscular Hemoglobin 29.5 pg (27.0-34.0); Mean Corpuscular Volume 87.3 fL (80.0-100.0); Mean Platelet Volume 7.6 fL (7.0-11.0); Mono # (Auto) 0.5 th/mm3 (0.0-0.9); Neut # (Auto) 2.5 th/mm3 (1.8-7.7); Neut % (Auto) 66.4 % (16.0-70.0); Platelet Count 97 th/mm3 (150-450); Red Blood Count 4.15 mil/mm3 (4.50-5.90); Red Cell Distribution Width 15.8 % (11.6-17.2); White Blood Count 3.8 th/mm3 (4.0-11.0)
[2018-07-12] MEDS: rifAXIMin 550 MG Tablet PO SCH ×2 (08:07→20:08)
[2018-07-12] MEDS: Nadolol 20 MG Tablet PO SCH (08:07)
[2018-07-12] MEDS: Multivitamin/Minerals Therapeutic Tablet PO SCH (08:07)
[2018-07-12] MEDS: Lisinopril 20 MG Tablet PO SCH (08:07)
[2018-07-12] MEDS: Duloxetine 60 MG DR Capsule PO SCH (08:07)
[2018-07-12] MEDS: Folic Acid 1 MG Tablet PO SCH (08:07)
[2018-07-12 08:44] LABS: Eosinophils 2 % (0-4); Lymphocytes 19 % (9-44); Monocytes 7 % (0-8); Myelocytes 1 % (0-0); Platelet Morphology Normal (Normal)
--- NOTE | 2018-07-12 11:51 | P.PNIM ---
Subjective Interval history: Reports some dry cough. No active shortness of breath. Feels okay. Wants to eat. Feels hungry. Still complains of left ankle pain at times. Was able to walk with physical therapy. Denies any thoughts of depression or suicide. Physical Exam Vital signs: Last Vital Signs Temp 98.5 F 07/12/18 08:00 Pulse 79 07/12/18 08:47 Resp 20 07/12/18 08:47 BP 143/79 H 07/12/18 08:00 Pulse Ox 93 L 07/12/18 08:00 Intake & Output 07/10/18 07/11/18 07/12/18 07/13/18 06:59 06:59 06:59 06:59 Intake Total 964 / 964 963 / 963 120 / 120 Output Total 600 / 600 1000 / 1000 Balance 364 / 364 -37 / -37 120 / 120 Weight 88.1 kg Narrative: GENERAL: Well-nourished well-developed white male in NAD SKIN: Warm and dry. CARDIOVASCULAR: Regular rate and rhythm. RESPIRATORY: No accessory muscle use. Clear to auscultation. Breath sounds equal bilaterally. GASTROINTESTINAL: Abdomen soft, non-tender, nondistended. Normoactive bowel sounds MUSCULOSKELETAL: Extremities without clubbing, cyanosis, or edema.. Examination of left ankle showed no deformities and had full range of motion. NEUROLOGICAL: Awake and alert to person place time and situation.. No obvious cranial nerve deficits. Motor grossly within normal limits. Five out of 5 muscle strength in the arms and legs. Normal speech PSYCHIATRIC: mood and affect and appropriate, not anxious; insight and judgment abnormal. Results Labs CBC & Chem 7: 07/12/18 06:15 07/09/18 05:50 Labs: Microbiology 07/08/18 00:25 Blood - Peripheral Aerobic Blood Culture - Preliminary No growth in 4 days 07/08/18 00:25 Blood - Peripheral Anaerobic Blood Culture - Preliminary No growth in 4 days 07/08/18 00:20 Blood - Peripheral Aerobic Blood Culture - Preliminary No growth in 4 days 07/08/18 00:20 Blood - Peripheral Anaerobic Blood Culture - Preliminary No growth in 4 days Imaging Imaging: Impressions Abdomen/Pelvis CT 07/11/18 19:34 CONCLUSION: 1. Cholelithiasis again noted with no wall thickening or inflammatory change. 2. Nonobstructing tiny right renal calculus. 3. Unremarkable bowel gas pattern. 4. Mild hepatic steatosis. 5. Mild consolidation and/or atelectasis in the right posterior lung base which is new from the prior study. 6. Stable mild portal and retroperitoneal adenopathy. There is small mesenteric lymph nodes again noted as well. Assessment and Plan (1) Bipolar disease, chronic: Code(s): F31.9 - Bipolar disorder, unspecified Status: Acute (2) Severe sepsis: Code(s): A41.9 - Sepsis, unspecified organism; R65.20 - Severe sepsis without septic shock Status: Resolved (3) Sepsis with metabolic encephalopathy: Code(s): A41.9 - Sepsis, unspecified organism; R65.20 - Severe sepsis without septic shock; G93.41 - Metabolic encephalopathy Status: Resolved (4) Community acquired pneumonia: Code(s): J18.9 - Pneumonia, unspecified organism Status: Acute (5) Esophagitis: Code(s): K20.9 - Esophagitis, unspecified Status: Acute (6) Portal hypertensive gastropathy: Code(s): K76.6 - Portal hypertension; K31.89 - Other diseases of stomach and duodenum Status: Acute Plan 63-year-old white male was originally admitted for confusion Metabolic/toxic encephalopathy-now resolved and patient is alert and oriented x4. Unsure if this is due to recent opiate use and multiple mood stabilizing medications including Seroquel versus sepsis. Head CT without any intracranial abnormality ammonia level of 41 on presentation UDS positive for opioid, patient states that he was taking a previous leftover narcotic prescription to help with his left ankle pain. Neurochecks are stable. Severe sepsis on presentation:HR>90, WBC<4,000 and LR>2.0; however source unknown, ?viral versus bacteria community acquired pneumonia He was started on prophylactic treatment for encephalitis which was discontinue and patient continues to have stable neurological status. Blood culture has been negative, influenza negative, patient's cough seems persistent with findings on CT abdomen pelvis of new right posterior consolidation or atelectasis, will start IV Levaquin for possible community acquired pneumonia Heme positive stool with stable hemoglobin overnight Continue PPI. Status post upper endoscopy 07/10 with findings of esophagitis, portal hypertension and gastroparesis. Restart diet. Hemoglobin has remained stable History of hepatitis C Chronic, continue to monitor, follow-up with GI as an outpatient. Left eye irritation treatment with eye drop Pancytopenia improving overnight. Appreciate hematology recommendations. Workup in progress. We will continue to monitor. WBC and platelets with small drop overnight. Defer to hematology to determine if patient will need to pursue bone marrow. History of depression with mood disorderappreciate psychiatry recommendations, at this time we will stop his home Wellbutrin and Effexor and decrease Seroquel dose and continue with Cymbalta. Patient will follow-up as an outpatient with psychiatry. Elevated alpha-fetoproteinCT abdomen pelvis findings obtained by GI reviewed with the patient. Further recommendations per GI & hematology/ oncology DVT prophylaxis: Chemical prophylaxis is contraindicated due to recent GI bleed Progress Note: Quality VTE Deep Vein Thrombosis/Pulmonary Embolism Present on Admission: No
--- NOTE | 2018-07-12 15:29 | P.PNONC ---
Subjective Interval history: Patient lying in bed, no acute distress. He reports diarrhea, 10 times today he states that his very dark/black. Patient had a EGD. Objective Vital Signs/Intake & Output: Vital Signs 07/11/18 16:00 07/11/18 19:55 07/11/18 20:00 Temperature 98.5 F 98.5 F Pulse Rate 72 75 75 Respiratory Rate 16 16 17 Blood Pressure 148/84 H 146/79 H Pulse Oximetry 97 94 L 07/11/18 23:55 07/12/18 04:00 07/12/18 08:00 Temperature 98.4 F 97.8 F 98.5 F Pulse Rate 72 74 62 Respiratory Rate 17 17 20 Blood Pressure 137/79 147/81 H 143/79 H Pulse Oximetry 94 L 94 L 93 L 07/12/18 08:47 Temperature Pulse Rate 79 Respiratory Rate 20 Blood Pressure Pulse Oximetry Intake & Output 07/11/18 07/12/18 07/12/18 18:59 06:59 18:59 Intake Total 120 / 120 150 / 150 Balance 120 / 120 150 / 150 Weight 88.1 kg Intake: IV 150 / 150 Levaquin 750 mg Premix Inj 150 150 / 150 ML @ 100 mls/hr IV.SIG Q24H [facility] Rx#:[id number] Oral 120 / 120 Other: # Voids 8 Date of Last Bowel Movement 07/11/18 07/11/18 # Bowel Movements 1 Result Diagrams: 07/12/18 06:15 07/09/18 05:50 Laboratory Results: Laboratory Results - last 24 hr 07/10/18 07/12/18 14:04 06:15 WBC 3.8 L RBC 4.15 L Hgb 12.3 L Hct 36.3 L MCV 87.3 MCH 29.5 MCHC 33.8 RDW 15.8 Plt Count 97 L MPV 7.6 Prelim Diff (Auto) Slide review pending Neut % (Auto) 66.4 Lymph % (Auto) 15.9 [place] % (Auto) 13.0 H Eos % (Auto) 4.4 H Baso % (Auto) 0.3 Neut # (Auto) 2.5 Lymph # (Auto) 0.6 L [place] # (Auto) 0.5 Eos # (Auto) 0.2 Baso # (Auto) 0.0 WBC Differential Manual diff final Seg Neuts % (Manual) 69 Band Neuts % (Manual) 1 Lymphocytes % (Manual) 19 Monocytes % (Manual) 7 Eosinophils % (Manual) 2 Basophils % (Manual) 1 Myelocytes % (Man) 1 H Abs Neuts (Manual) 2.7 Differential Comment . Platelet Estimate Low L Platelet Morphology Normal Immunophenotypic Anal Culture Results: Microbiology 07/08/18 00:25 Aerobic Blood Culture - Preliminary Blood - Peripheral No growth in 4 days Anaerobic Blood Culture - Preliminary No growth in 4 days 07/08/18 00:20 Aerobic Blood Culture - Preliminary Blood - Peripheral No growth in 4 days Anaerobic Blood Culture - Preliminary No growth in 4 days Imaging Studies: Impressions Abdomen/Pelvis CT 07/11/18 19:34 CONCLUSION: 1. Cholelithiasis again noted with no wall thickening or inflammatory change. 2. Nonobstructing tiny right renal calculus. 3. Unremarkable bowel gas pattern. 4. Mild hepatic steatosis. 5. Mild consolidation and/or atelectasis in the right posterior lung base which is new from the prior study. 6. Stable mild portal and retroperitoneal adenopathy. There is small mesenteric lymph nodes again noted as well. Medications: Active Medications Generic Name Dose Route Start Last Admin Trade Name Freq PRN Reason Stop Dose Admin Albuterol 1 ampul 07/08/18 20:00 07/12/18 08:46 Duoneb Neb ([place]) NEB 1 ampul Q6HR WHILE AWAKE NEB [facility] Administration Duloxetine HCl 60 mg 07/10/18 16:30 07/12/18 08:07 Cymbalta PO 60 mg DAILY [facility] Administration Enalaprilat 2.5 mg 07/08/18 14:50 07/08/18 15:27 Vasotec Inj IV.PUSH 2.5 mg Q6H PRN Administration SBP>160, DBP>90 Folic Acid 1 mg 07/08/18 09:00 07/12/18 08:07 Folic Acid PO 07/13/18 08:59 1 mg DAILY PRE[facility] Administration Levofloxacin/Dextrose 150 mls @ 100 mls/hr 07/12/18 10:00 07/12/18 12:03 Levaquin 750 Mg Premix Inj IV.SIG Infused Q24H [facility] Infusion Lisinopril 20 mg 07/12/18 09:00 07/12/18 08:07 Prinivil PO 20 mg DAILY [facility] Administration Metoprolol Tartrate 12.5 mg 07/09/18 17:31 07/09/18 20:51 Lopressor PO 12.5 mg BID PRN Administration SBP>180, DBP>100, HR>65 Multivitamins/Minerals 1 tab 07/08/18 09:00 07/12/18 08:07 Theragran-M PO 07/13/18 08:59 1 tab DAILY [facility] Administration Nadolol 20 mg 07/10/18 09:00 07/12/18 08:07 Corgard PO 20 mg DAILY [facility] Administration Pantoprazole Sodium 40 mg 07/11/18 09:00 07/12/18 08:07 Protonix PO 40 mg DAILY [facility] Administration Quetiapine Fumarate 100 mg 07/10/18 21:00 07/11/18 20:14 Seroquel PO 100 mg HS [facility] Administration Rifaximin 550 mg 07/09/18 21:00 07/12/18 08:07 Xifaxan PO 550 mg Q12HR [facility] Administration Sodium Chloride 2 ml 07/08/18 09:00 07/12/18 08:08 Ns Flush IV.FLUSH 2 ml BID [facility] Administration Thiamine HCl 100 mg 07/08/18 09:00 07/12/18 08:07 Vitamin B1 PO 100 mg DAILY [facility] Administration Objective Remarks: GENERAL: Well-nourished, well-developed male patient, no acute distress. SKIN: Warm and dry. HEAD: Normocephalic. EYES: No scleral icterus. No injection or drainage. NECK: Supple, trachea midline. CARDIOVASCULAR: Regular rate and rhythm without murmurs. RESPIRATORY: Breath sounds equal bilaterally. No accessory muscle use. GASTROINTESTINAL: Abdomen protuberant, non-tender, nondistended. EXTREMITIES: No cyanosis, or edema. MUSCULOSKELETAL: Adequate muscle tone. NEUROLOGICAL: No obvious focal deficit. Awake, alert, and oriented x3. PSYCHIATRIC: Appropriate mood and affect; insight and judgment normal. Assessment/Plan - Plan Recommendations: 1. Pancytopenia, his white count and hemoglobin is improving, platelet count decreased a little today at 97,000. Platelet count yesterday was 114,000. 2. Patient reports diarrhea that is black and very dark in color, 10 episodes today. Will order Hemoccult stool. 3. B12 and folate are within normal value, copper is pending. Alpha- fetoprotein tumor marker elevated at 24.7. Peripheral blood smear did not show any evidence of a neoplastic leukocyte population. - Attending Statement The exam, history, and the medical decision-making described in the above note were completed with the assistance of the mid-level provider. I reviewed and agree with the findings presented. I attest that I had a [id number] encounter with the patient on the same day, and personally performed and documented my assessment and findings in the medical record. Cytopenia, uncertain of etiology. Will continue to follow CBC closely. If cytopenias do not recover in the outpateint setting will consider bone marrow. He will need close follow up in hematology clinic.
--- NOTE | 2018-07-12 17:33 | P.PNGI ---
Subjective Interval history: Pt is resting in bed, doing good, no nausea, no vomiting, no bleeding. Physical Exam Vital signs: Vital Signs 07/11/18 19:55 07/11/18 20:00 07/11/18 23:55 Temperature 98.5 F 98.4 F Pulse Rate 75 75 72 Respiratory Rate 16 17 17 Blood Pressure 146/79 H 137/79 Pulse Oximetry 97 94 L 94 L 07/12/18 04:00 07/12/18 08:00 07/12/18 08:47 Temperature 97.8 F 98.5 F Pulse Rate 74 62 79 Respiratory Rate 17 20 20 Blood Pressure 147/81 H 143/79 H Pulse Oximetry 94 L 93 L Intake & Output 07/11/18 07/12/18 07/12/18 18:59 06:59 18:59 Intake Total 120 / 120 150 / 150 Balance 120 / 120 150 / 150 Weight 88.1 kg Intake: IV 150 / 150 Levaquin 750 mg Premix Inj 150 150 / 150 ML @ 100 mls/hr IV.SIG Q24H [facility] Rx#:[id number] Oral 120 / 120 Other: # Voids 8 Date of Last Bowel Movement 07/11/18 07/11/18 # Bowel Movements 1 Narrative: GENERAL: Well-nourished well-developed white male in NAD SKIN: Warm and dry. CARDIOVASCULAR: Regular rate and rhythm. RESPIRATORY: No accessory muscle use. Clear to auscultation. Breath sounds equal bilaterally. GASTROINTESTINAL: Abdomen soft, non-tender, nondistended. Normoactive bowel sounds MUSCULOSKELETAL: Extremities without clubbing, cyanosis, or edema. NEUROLOGICAL: Awake and alert to person place time and situation. PSYCHIATRIC: mood and affect and appropriate, not anxious; insight and judgment abnormal. Results - Labs CBC & Chem 7: 07/12/18 06:15 07/09/18 05:50 Laboratory Results - last 24 hr 07/10/18 07/12/18 14:04 06:15 WBC 3.8 L RBC 4.15 L Hgb 12.3 L Hct 36.3 L MCV 87.3 MCH 29.5 MCHC 33.8 RDW 15.8 Plt Count 97 L MPV 7.6 Prelim Diff (Auto) Slide review pending Neut % (Auto) 66.4 Lymph % (Auto) 15.9 [place] % (Auto) 13.0 H Eos % (Auto) 4.4 H Baso % (Auto) 0.3 Neut # (Auto) 2.5 Lymph # (Auto) 0.6 L [place] # (Auto) 0.5 Eos # (Auto) 0.2 Baso # (Auto) 0.0 WBC Differential Manual diff final Seg Neuts % (Manual) 69 Band Neuts % (Manual) 1 Lymphocytes % (Manual) 19 Monocytes % (Manual) 7 Eosinophils % (Manual) 2 Basophils % (Manual) 1 Myelocytes % (Man) 1 H Abs Neuts (Manual) 2.7 Differential Comment . Platelet Estimate Low L Platelet Morphology Normal Immunophenotypic Anal Microbiology 07/08/18 00:25 Blood - Peripheral Aerobic Blood Culture - Preliminary No growth in 4 days 07/08/18 00:25 Blood - Peripheral Anaerobic Blood Culture - Preliminary No growth in 4 days 07/08/18 00:20 Blood - Peripheral Aerobic Blood Culture - Preliminary No growth in 4 days 07/08/18 00:20 Blood - Peripheral Anaerobic Blood Culture - Preliminary No growth in 4 days - Imaging Impressions Abdomen/Pelvis CT 07/11/18 19:34 CONCLUSION: 1. Cholelithiasis again noted with no wall thickening or inflammatory change. 2. Nonobstructing tiny right renal calculus. 3. Unremarkable bowel gas pattern. 4. Mild hepatic steatosis. 5. Mild consolidation and/or atelectasis in the right posterior lung base which is new from the prior study. 6. Stable mild portal and retroperitoneal adenopathy. There is small mesenteric lymph nodes again noted as well. Assessment and Plan - Plan 63-year-old male who was admitted back to the hospital on 07/07/2018 with altered mental status according to the record currently patient continues to have altered mental status randomly does attempt to answer some of the simple questions. According to the record he has been in assisted living and has a history of polysubstance abuse as well as hepatitis C. This admission patient was noted to have heme positive stools and a decrease in his hemoglobin of 2.5 g since 07/03/2018. Patient denies any rectal bleeding or abdominal pain nausea or vomiting but does appear to be a poor historian and randomly begins to discuss other issues that have nothing to do with his hospital stay. He does realize he is in the hospital. Current labs noted hemoglobin 11.7, platelet count 95, WBC count 2.3, bilirubin 0.8, AST 111, ALT 62, alkaline phosphatase 156,. Patient denies any diarrhea or constipation and according to the staff he has not had a bowel movement since admission to the floor. Gastroenterology has been consulted to assist with his symptom management and plan of care. GI bleed positive Hemoccult stool and according to the record 2.5 g hemoglobin drop since 07/03/2018 current hemoglobin 11.7 Platelet count 95 this could be related to patient's chronic hepatitis C and coagulopathy Transaminitis elevated AST 111, ALT 62. This too could be related to patient's history of hepatitis C bilirubin normal History of substance abuse this will be monitored and treated per attending Anemia, mild Unknown GI history, patient did briefly note colonoscopy but unaware of timing or findings. No GI procedures noted in the [facility] old record 07/12/18 New diagnosis of cirrhosis- Post EGD--07/10/2018 1. There was LA Class A esophagitis noted 2. Portal hypertensive gastropathy was found in the entire examined stomach 3. Food residue in the gastric fundus 4. Normal duodenal mucosa in the entire duodenum 5. Retroflexed views revealed Gastroparesis WBC 6.6 hemoglobin 12.1 hematocrit 35.8 platelet count 114 alpha-fetoprotein 24.7 Abdomen/Pelvis CT 07/11/18 19:34 CONCLUSION: 1. Cholelithiasis again noted with no wall thickening or inflammatory change. 2. Nonobstructing tiny right renal calculus. 3. Unremarkable bowel gas pattern. 4. Mild hepatic steatosis. 5. Mild consolidation and/or atelectasis in the right posterior lung base which is new from the prior study. 6. Stable mild portal and retroperitoneal adenopathy. There is small mesenteric lymph nodes again noted as well. Plan Diet as tolerated Need liver work up as an OP f/u with gi upon discharge GI will sign off This patient has been seen by myself and Dr. Riley and this note is written on his behalf
[2018-07-12] MEDS: QUEtiapine 100 MG Tablet PO SCH (20:08)
[2018-07-12] MEDS: Lactobacillus Acidophilus/L. Spores Tablet PO SCH (20:11)
[2018-07-13 05:51] LABS: Baso % (Auto) 0.3 % (0.0-2.0); Eos # (Auto) 0.3 th/mm3 (0.0-0.4); Eos % (Auto) 6.2 % (0.0-4.0); Hematocrit 39.1 % (39.0-51.0); Hemoglobin 13.3 gm/dL (13.0-17.0); Lymph # (Auto) 0.7 th/mm3 (1.0-4.8); Lymph % (Auto) 17.8 % (9.0-44.0); Mean Corpuscular Hemoglobin 29.4 pg (27.0-34.0); Mean Corpuscular Volume 86.7 fL (80.0-100.0); Mean Platelet Volume 7.9 fL (7.0-11.0); Mono # (Auto) 0.5 th/mm3 (0.0-0.9); Mono % (Auto) 10.9 % (0.0-8.0); Neut # (Auto) 2.7 th/mm3 (1.8-7.7); Neut % (Auto) 64.8 % (16.0-70.0); Platelet Count 109 th/mm3 (150-450); Red Blood Count 4.52 mil/mm3 (4.50-5.90); Red Cell Distribution Width 15.6 % (11.6-17.2); White Blood Count 4.2 th/mm3 (4.0-11.0)
[2018-07-13] MEDS: Lactobacillus Acidophilus/L. Spores Tablet PO SCH (08:35)
[2018-07-13] MEDS: Duloxetine 60 MG DR Capsule PO SCH (08:35)
[2018-07-13] MEDS: Nadolol 20 MG Tablet PO SCH (08:36)
[2018-07-13] MEDS: rifAXIMin 550 MG Tablet PO SCH (08:36)
[2018-07-13] MEDS: Lisinopril 20 MG Tablet PO SCH (08:36)
--- NOTE | 2018-07-13 09:40 | P.DS ---
DS: Providers Date of admission: 07/08/18 04:32 Primary care physician: UNKNOWN Consults: 07/08/18 04:36 Consult to Gastroenterology Routine Consulting Provider: Bhavya Lemos Reason for Consultation: GI Bleed CONSULT FOR AM Notified:: Service Spoke with:: Yeison Date Notified:: 07/08/18 Time Notified:: 04:43 Ordering Provider: ALONSO 07/09/18 17:29 Consult to Hematology Routine Consulting Provider: Hayley Russo Reason for Consultation: Patient with Leucopenia, pancytopenia, please evaluate and advise for therapy Notified:: Service Spoke with:: MOMO Date Notified:: 07/09/18 Time Notified:: 17:36 Ordering Provider: NUNO 07/10/18 16:25 Consult to Psychiatry Routine Consulting Provider: Robbie Skelton Reason for Consultation: History of depression with mood disorder please assist with titration of home psychiatric medication Spoke with:: micheal Date Notified:: 07/10/18 Time Notified:: 16:30 Ordering Provider: GM Brief History from admission: 63-year-old male for past medical history of hypertension, hepatitis C was brought in the ED for altered mental status change evaluation. However on arrival and even during my exam, patient was unable to provide any coherent history and he was placed in four-point restraint. Therefore at this time history is obtained from ED report and chart review below: "This patient was brought to us from an assisted living facility/fdc house because he is just not acting right per EMS. Onset was a couple of days ago. He does have a history of polysubstance abuse. He was found to be tachycardic on arrival. Septic workup has been initiated. Drug screen is also pending. The 2.5 g drop in hemoglobin since 07/03 prompted a rectal exam which shows Hemoccult positive stools. Protonix bolus and drip have been ordered." DS: Diagnosis Discharge Diagnosis (1) Community acquired pneumonia: Status: Acute (2) Severe sepsis: Status: Resolved (3) Sepsis with metabolic encephalopathy: Status: Resolved (4) Esophagitis: Status: Acute (5) Portal hypertensive gastropathy: Status: Acute (6) Bipolar disease, chronic: Status: Chronic (7) Pancytopenia: Status: Resolved DS: Summary 63-year-old white male with initially admitted for metabolic sepsis encephalopathy and underwent a septic workup which revealed a right lower lobe community acquired pneumonia and placed on IV Levaquin. His pancytopenia improved and partially was attributed to his severe sepsis on presentation. Hematology oncology was consulted during this hospitalization and recommended continue with outpatient workup if needed including bone marrow biopsy. He had heme positive stools with GI bleed during the hospitalization and a upper endoscopy was performed on July 10 with findings of esophagitis, portal hypertension and gastroparesis. PPI was initiated. He was also found to have elevated alpha-fetoprotein and a CT abdomen pelvis is obtained which showed cholelithiasis, small right kidney stone and new right posterior consolidation or atelectasis. GI recommended continued follow-up as an outpatient. For his history of bipolar disorder and depression, psychiatry was consulted secondary to his multi-psychiatric medication which have initially contributed to his presenting encephalopathy. Psychiatry recommended decreasing Seroquel dose and stopping home Wellbutrin and Effexor and trazodone. He is to continue with his Cymbalta. At this time, patient is alert and oriented x4 and ready to be transitioned to home with outpatient follow-up. Time Spent with Patient Total time spent providing and/or coordinating discharge services: Quality: VTE Deep Vein Thrombosis/Pulmonary Embolism Present on Admission: No Exam HENMT Head: normocephalic and atraumatic Nose: no nasal discharge and no epistaxis Mouth: moist mucous membranes Eyes Sclera: normal sclerae Pupils: PERRL Neck Neck: trachea midline and no JVD Resp Effort & Inspection: no use of accessory muscles Auscultation: rales (Few rales in the right base) on the right Cardio Rate: regular rate Rhythm: regular rhythm Heart Sounds: no murmurs GI Inspection: non-distended Palpation: soft, no hepatosplenomegaly and nontender Skin General: dry skin (warm) Neuro General: alert and awake Cranial Nerves: other Speech: speech normal Motor: no movement abnormalities noted Extrem General: normal to inspection, no clubbing, no cyanosis and no edema Psych Mood: congruent mood Affect: normal affect Judgment: judgment good Results Procedures completed during hospitalization: 07/10 upper endoscopy done with GI service with findings of esophagitis, portal hypertension and gastroparesis Completed studies during hospitalization: Pending at discharge 07/10/18 12:39 Surgical [PTH] Routine Labs on day of discharge: Labs from last 24 hours 07/13/18 04:45 WBC 4.2 RBC 4.52 Hgb 13.3 Hct 39.1 MCV 86.7 MCH 29.4 MCHC 34.0 RDW 15.6 Plt Count 109 L MPV 7.9 Neut % (Auto) 64.8 Lymph % (Auto) 17.8 [place] % (Auto) 10.9 H Eos % (Auto) 6.2 H Baso % (Auto) 0.3 Neut # (Auto) 2.7 Lymph # (Auto) 0.7 L [place] # (Auto) 0.5 Eos # (Auto) 0.3 Baso # (Auto) 0.0 WBC Differential . Differential Comment Auto diff final Preliminary micro results at discharge 07/08/18 00:25 Aerobic Blood Culture - Preliminary Blood - Peripheral No growth in 4 days Anaerobic Blood Culture - Preliminary No growth in 4 days 07/08/18 00:20 Aerobic Blood Culture - Preliminary Blood - Peripheral No growth in 4 days Anaerobic Blood Culture - Preliminary No growth in 4 days Impressions ITS Impressions Chest X-Ray 07/08/18 00:06 CONCLUSION: Left basilar atelectasis suspected. Head CT 07/08/18 02:18 CONCLUSION: 1. Negative CT Head non contrast. . Abdomen/Pelvis CT 07/11/18 19:34 CONCLUSION: 1. Cholelithiasis again noted with no wall thickening or inflammatory change. 2. Nonobstructing tiny right renal calculus. 3. Unremarkable bowel gas pattern. 4. Mild hepatic steatosis. 5. Mild consolidation and/or atelectasis in the right posterior lung base which is new from the prior study. 6. Stable mild portal and retroperitoneal adenopathy. There is small mesenteric lymph nodes again noted as well. Discharge Plan Discharge Disposition Patient Disposition: Discharge Home Discharge Condition Condition: Good Discharge Order Discharge Orders: Discharge Order (Routine); Ordered 07/13/18 Ordered By: Ivelisse Leon Physicians Team Primary Care Provider: UNKNOWN, Attending Provider: Ivelisse Leon Other Providers: Bhavya Lemos ; Hayley Russo ; Robbie Skelton Rxs /Orders / Referrals /Forms Prescriptions: New quetiapine 100 mg Tablet 100 mg PO HS Qty: 30 RF: 0 nadolol 20 mg Tablet 20 mg PO DAILY Qty: 30 RF: 0 lisinopril 20 mg Tablet 20 mg PO DAILY Qty: 30 RF: 0 pantoprazole 40 mg Tablet,Delayed Release (Dr/Ec) 40 mg PO DAILY Qty: 30 RF: 0 levofloxacin 750 mg Tablet 750 mg PO DAILY Qty: 5 RF: 0 Continue duloxetine [Cymbalta] 60 mg Capsule,Delayed Release(Dr/Ec) 60 mg PO DAILY RF: 0 Discontinued venlafaxine [Effexor XR] 75 mg Capsule,Extended Release 24hr 75 mg PO DAILY RF: 0 divalproex 250 mg Tablet,Delayed Release (Dr/Ec) 250 mg PO BID RF: 0 trazodone 50 mg Tablet 50 mg PO HS RF: 0 lisinopril 30 mg Tablet 30 mg PO DAILY RF: 0 bupropion HCl 150 mg Tablet Sustained-Release 12 Hr 150 mg PO DAILY RF: 0 quetiapine [Seroquel] 400 mg Tablet 400 mg PO HS RF: 0 Referrals: UNKNOWN, [Primary Care Provider] - See Instructions (follow-up with [facility] @ [phone] (NEED MEDICAL RECORD INFORMATION) ) Discharge Instructions Patient Printed Instructions: Nadolol (By mouth), Lisinopril (By mouth), Levofloxacin (By mouth), Quetiapine (By mouth), Pantoprazole (By mouth) Post Discharge Care Plan Care Plan Goals: Your Health Problems: gastritis, pneumonia Goals to Promote Your Health: * To prevent worsening of your condition * To maintain your health at the optimal level Directions to Meet Your Goals: * Take your medications as prescribed * Follow your dietary instruction * Follow activity as directed * Keep your appointments as scheduled * Take your immunizations and boosters as scheduled * If your symptoms worsen call your PCP * If no PCP go to Urgent Care or Emergency Room Smoking is dangerous to your health. Avoid second hand smoke. You may reach the 24-hour crisis hotline for domestic abuse at . Status ED Status: Left Department
[2018-07-13] MEDS ORDERED: levoFLOXacin 750 MG Tablet PO SCH (11:00)
[2018-07-13 19:53] LABS: Copper, Serum 120 mcg/dL (70-175)
== END 2018-07-13 10:46 | disposition home or self-care (01) ==
LOC: NEPE 23:54 → NEDA 07-08 04:32 → N06 07-08 05:41 → N04 07-09 15:12
PROVIDERS: ADMIT Family Medicine; ATTEND Family Medicine
DX: J18.9 Pneumonia, unspecified organism; K20.9 Esophagitis, unspecified; N20.0 Calculus of kidney; M19.90 Unspecified osteoarthritis, unspecified site; F19.21 Other psychoactive substance dependence, in remission; F31.9 Bipolar disorder, unspecified; I50.9 Heart failure, unspecified; K29.51 Unspecified chronic gastritis with bleeding; G92 Toxic encephalopathy; A41.9 Sepsis, unspecified organism; I85.00 Esophageal varices without bleeding; K80.20 Calculus of gallbladder without cholecystitis without obstruction; K76.6 Portal hypertension; J98.11 Atelectasis; K31.84 Gastroparesis; E87.2 Acidosis; R77.2 Abnormality of alphafetoprotein; D68.9 Coagulation defect, unspecified; I11.0 Hypertensive heart disease with heart failure; R65.20 Severe sepsis without septic shock; H57.89 Other specified disorders of eye and adnexa; D61.818 Other pancytopenia; Z78.1 Physical restraint status; B18.2 Chronic viral hepatitis C